=== PATIENT | female | born 1965 | race Caucasian/White ===

== ENCOUNTER → 2021-02-01 12:57 | Outpatient (BNVA) | payer OTHER, SELFPAY | PROVIDERS: PCP Internal Medicine; Visit Provider Internal Medicine | DX: G90.529 Complex regional pain syndrome I of unspecified lower limb (principal); M96.1 Postlaminectomy syndrome, not elsewhere classified; M79.671 Pain in right foot; M54.5 Low back pain; Z88.2 Allergy status to sulfonamides; Z88.8 Allergy status to other drugs, medicaments and biological substances; Z79.899 Other long term (current) drug therapy | CPT/HCPCS: 99202 ==

== ENCOUNTER 2021-08-20 13:34 | Outpatient (REF) | payer OTHER, SELFPAY ==
--- NOTE | ~2021-08-20 | MR_ITS ---
MRI OF THE BRAIN WITH AND WITHOUT IV CONTRAST INDICATION: Multiple sclerosis. COMPARISON: None available. TECHNIQUE: Multiplanar multisequence MR imaging of the brain was obtained without and following the administration of 7 mL of Gadavist without complication. FINDINGS: There is no pathologic intracranial enhancement. There are moderate scattered T2 signal changes throughout the supratentorial white matter and central nguyễn in a nonspecific distribution. There is no hydrocephalus, extra-axial surface collection, or herniation. The major flow voids at the skull base are preserved. There is no acute infarct on diffusion-weighted imaging. There is no intracranial hemorrhage on the gradient recalled echo acquisition. The cerebellar tonsils are normally positioned. The craniocervical junction is normal. Osseous marrow signal intensity is homogenous. The visualized soft tissues are unremarkable. MR/MR head/brain wo/w con IMPRESSION: There are moderate scattered T2 signal changes throughout the supratentorial white matter and central nguyễn in a nonspecific distribution. There are no enhancing lesions intracranially. If the prior study becomes available for comparison, an addendum will be made.
== END 2021-08-20 13:35 | disposition home or self-care (01) ==
LOC: HO.MRI 13:34
PROVIDERS: Visit Provider Psychiatry & Neurology Neurology
DX: G37.9 Demyelinating disease of central nervous system, unspecified (principal); G35 Multiple sclerosis
CPT/HCPCS: 70553; A9585

== ENCOUNTER → 2021-09-17 09:56 | Outpatient (BNVA) | payer OTHER, SELFPAY | PROVIDERS: PCP Internal Medicine; Visit Provider Internal Medicine | DX: G90.521 Complex regional pain syndrome I of right lower limb (principal) | CPT/HCPCS: Q3014 ==

== ENCOUNTER 2021-12-22 06:06 | Outpatient (REF) | payer OTHER, SELFPAY | END 2021-12-22 06:07 | disposition home or self-care (01) | LOC: HO.RADIR 06:06 | PROVIDERS: Visit Provider Internal Medicine | DX: G90.521 Complex regional pain syndrome I of right lower limb (principal) | CPT/HCPCS: 64450 ==

== ENCOUNTER → 2021-12-24 10:45 | Outpatient (BNVA) | payer OTHER, SELFPAY | PROVIDERS: PCP Internal Medicine; Visit Provider Internal Medicine | DX: G90.521 Complex regional pain syndrome I of right lower limb (principal); M96.1 Postlaminectomy syndrome, not elsewhere classified | CPT/HCPCS: 99212 ==

== ENCOUNTER 2022-11-23 16:59 | Outpatient (REF) | payer OTHER, SELFPAY ==
[2022-11-23 18:20] LABS: Alanine Aminotransferase 12 U/L (0-31); Albumin Level 4.5 g/dL (3.5-5.0); Alkaline Phosphatase 88 U/L (39-117); Anion Gap 13 (12-20); Aspartate Amino Transferase 15 U/L (5-31); Bilirubin Total 0.6 mg/dL (0.0-1.0); Blood Urea Nitrogen 17 mg/dL (9-16); Calcium 9.5 mg/dL (8.4-10.2); Carbon Dioxide 25 mmol/L (22-29); Chloride 100 mmol/L (96-108); Estimated Glomerular Filt Rate > 60; Glucose Random 132 mg/dL (60-115); Potassium 4.4 mmol/L (3.3-5.1); Rheumatoid Factor < 13.0 IU/mL (<15.0); Sodium 134 mmol/L (135-145); Total Protein 7.2 g/dL (6.5-8.0)
[2022-11-23 18:22] LABS: Erythrocyte Sedimentation Rate 7 MM/HR (0-20)
[2022-11-23 18:29] LABS: Thyroid Stimulating Hormone 0.85 uIU/mL (0.32-4.0)
[2022-11-30 01:24] LABS: Lyme Abs Screen <0.90 index
[2022-12-02 10:33] LABS: Anti Nuclear Antibody Screen NEGATIVE (NEGATIVE)
== END 2022-11-23 17:00 | disposition home or self-care (01) ==
LOC: HO.LAB 16:59
PROVIDERS: PCP Internal Medicine; Visit Provider Psychiatry & Neurology Neurology
DX: I67.9 Cerebrovascular disease, unspecified (principal)
CPT/HCPCS: 36415; 80053; 82550; 84443; 85652; 86038; 86431; 86617; 86618

== ENCOUNTER 2023-03-15 18:27 | Emergency (ER) | payer OTHER, SELFPAY ==
--- NOTE | ~2023-03-15 | XR_ITS ---
EXAMINATION: XR FOOT, RIGHT CLINICAL INFORMATION: Pain swelling discoloration COMPARISON: None available. TECHNIQUE: AP, lateral, and oblique views of the right foot. FINDINGS: Diffuse soft tissue swelling seen about the midfoot and forefoot. There is mild diffuse osteopenia. I do not appreciate any acute superimposed fracture or dislocation. No periosteal reaction or bony destructive lesions. No repair foreign body or soft tissue gas noted. XR/XR foot RT min 3V IMPRESSION: Diffuse soft tissue swelling. Chronic appearing bony changes. I do not appreciate any acute superimposed fracture or dislocation.
--- NOTE | ~2023-03-15 | US_ITS ---
EXAMINATION: US VENOUS ULTRASOUND WITH DOPPLER LOWER EXTREMITY, RIGHT CLINICAL INFORMATION: Increasing pain and swelling COMPARISON: None available. TECHNIQUE: Ultrasound of the deep veins is performed from the hip to the calf with compression sonography and color and pulse Doppler assessment. Spectral analysis with color-flow imaging is performed. FINDINGS: There is normal venous compression and respiratory variation and augmented flow. The visualized common femoral vein, superficial femoral vein, profunda femoral vein, popliteal vein, and the trifurcation region shows no evidence of deep venous thrombosis. There is no significant popliteal fossa cyst. Contralateral common femoral vein is patent. If the patient's symptoms persist, followup ultrasound in 5 days 7 days might be of value to exclude proximal propagation from a non-visualized calf vein. US/US venous duplex LE RT IMPRESSION: No DVT demonstrated in the right lower extremity.
--- NOTE | ~2023-03-15 | US_ITS ---
EXAMINATION: COLOR-FLOW DUPLEX IMAGING OF THE RIGHT LOWER EXTREMITY ARTERIAL SYSTEM WITH VELOCITY MEASUREMENTS CLINICAL INFORMATION: This is a 57 year-old female with right lower extremity pain, swelling and diminished pulses. RIGHT FEMORAL RUNOFF VELOCITIES: The right common femoral artery peak systolic velocity is 76 cm/s. The waveform is triphasic. The right profunda femoral artery peak systolic velocity is 51 cm/s. The waveform is triphasic. The right proximal superficial femoral artery peak systolic velocity is 64 cm/s. The waveform is triphasic. The right mid superficial femoral artery peak systolic velocity is 83 cm/s. The waveform is triphasic. The right distal superficial femoral artery peak systolic velocity is 92 cm/s. The waveform is triphasic. The right popliteal artery peak systolic velocity is 58 cm/s. The waveform is triphasic. The right posterior tibial artery peak systolic velocity is 56 cm/s. The waveform is triphasic. US/US arterial duplex LE RT IMPRESSION: No hemodynamically significant right lower extremity arterial disease is seen.
[2023-03-15 18:40] VITALS: BP 146/76; PULSE 61; RESP 16; TEMP 36.8; O2SAT 98; BMI 24.7
--- NOTE | 2023-03-15 18:44 | PC.NURSE ---
coming from home with right lower extremity swelling. denies diabetes or chf, reports taking oxycodone and lyrica at home as prescribed with no relief. unable to bear weight on foot is usually able to stand and pivot into wheelchair. call person within reach
--- NOTE | 2023-03-15 19:02 | ED_ITS ---
HPI - Extremity Injury (Lower) General Chief Complaint: Extremity Injury, Lower Stated Complaint: r swollen leg/ 02/09 pain Time Seen by Provider: 03/15/23 18:40 Source: patient Mode of arrival: ambulatory Limitations: no limitations History of Present Illness HPI Narrative: Patient is a 57-year-old female who presents emergency department for evaluation of right foot pain and swelling. Reports history of intermittent swelling to the right foot but not as severe as it is currently. She reports increasing pain over the past 2 weeks. Yesterday she noticed that the swelling to the foot became worse and she noticed discoloration/bruising to the 1st through 3rd digit without any trauma or injury. She describes her pain as a burning nerve type of pain. She states that she was seen at [facility] 03/01/2023 she states that it was believed to be related to an inflammatory condition for which she received prescription for prednisone 40 mg x 5 days which provided no improvement. Her pain has been unimproved with her chronic oxycodone/Lyrica Related Data Home Medications Medication Instructions Recorded Confirmed amlodipine 2.5 mg tablet 2.5 mg PO DAILY 02/01/21 09/17/21 cholecalciferol (vitamin D3) 25 1,000 unit PO DAILY 02/01/21 09/17/21 mcg (1,000 unit) tablet diazepam 5 mg tablet 5 mg PO DAILY PRN 02/01/21 09/17/21 docusate sodium 100 mg capsule 0 mg PO 02/01/21 09/17/21 duloxetine 60 mg capsule,delayed 60 mg PO DAILY 02/01/21 09/17/21 release lidocaine-prilocaine 2.5 %-2.5 % g topical BEDTIME 02/01/21 09/17/21 topical cream melatonin 3 mg tablet 3 mg PO QPM 02/01/21 09/17/21 ondansetron HCl 4 mg tablet 4 mg PO Q8H PRN nausea 02/01/21 09/17/21 oxycodone-acetaminophen 10 mg-325 1 tab PO BID PRN 02/01/21 09/17/21 mg tablet polyethylene glycol 3350 17 g PO 02/01/21 09/17/21 gram/dose oral powder (Gavilax) pregabalin 150 mg capsule 150 mg PO BID 02/01/21 09/17/21 zolpidem 12.5 mg tablet,extended 12.5 mg PO BEDTIME PRN insomnia 02/01/21 09/17/21 release,multiphase Allergies Allergy/AdvReac Type Severity Reaction Status Date / Time carisoprodol [From Soma] AdvReac Intermediate hives Verified 12/22/21 11:19 diflunisal AdvReac Intermediate hives Verified 12/22/21 11:19 omeprazole [From Prilosec] AdvReac Intermediate hives Verified 12/22/21 11:19 Sulfa (Sulfonamide AdvReac Intermediate hives Verified 12/22/21 11:19 Antibiotics) Review of Systems 2 Review of Systems: Yes all other systems are reviewed and are negative [facility] Past Medical History Attestation statement: The following information was validated with the patient. Source: old records reviewed Medical History CRPS (complex regional pain syndrome) type I of lower limb Post laminectomy syndrome Mitral regurgitation Chronic low back pain Anxiety Exotropia of left eye Chronic urticaria Insomnia Obesity Venous insufficiency Chronic pain in right foot Neuropathy Urinary incontinence Vitamin D deficiency Urinary retention Surgical History Spinal cord stimulator dysfunction H/O foot surgery Social History Social History (Updated 02/01/21 @ 13:09 by Chidi Mireles) Alcohol intake: never Patient Tobacco Use Status: Never used Tobacco Smoked in Last 30 Days: No Use of substances other than those prescribed or required for medical reasons: No Advance Directives: No Advance Directives Information Provided: Yes Physical Exam 2 Vital Signs: Vital Signs: Last Vital Signs Temp 98.3 F 03/15/23 19:32 Pulse 58 03/15/23 19:32 Resp 17 03/15/23 19:32 BP 127/78 03/15/23 19:32 Pulse Ox 97 03/15/23 19:32 O2 Del Method Room Air 03/15/23 19:32 BMI result Body Mass Index 24.7 Appearance: Alert.?Oriented to person, place and time. No acute distress.?Normal affect. Eyes: Pupils equal, round and reactive to light.? ENT: Pharynx normal.?? Neck: Normal inspection.? Neck supple.?? CVS: Heart sounds normal. Normal heart rate and rhythm.? Pulses normal.?? Respiratory: No respiratory distress.? Lung sounds clear to auscultation bilaterally?? Abdomen: Soft and non-tender. Normoactive bowel sounds. Skin: Skin warm and dry.? Normal skin color.? ? Extremities: 2+ pitting edema to the right foot. Doppler signal present on the right DP/PT. No calf ttp. No pallor or paralysis Neuro: Moves all extremities spontaneously. Sensation intact bilaterally. Course Reevaluation(s) Reevaluation #1: Arterial and venous ultrasound without acute abnormalities. CBC revealing a mild normocytic anemia not needing transfusion criteria, no leukocytosis. CRP within normal limits, ESR normal. Overall unremarkable CMP. Upon review of these findings with patient she becomes frustrated in her pain, expresses concern for potential fracture. Or initially she denied any precipitating injury, at this time she states, she may have twisted it or banged it into something. Plan to obtain XR to exclude fracture. Time: 20:17 Reevaluation #2: XR revealing no acute fracture dislocation, diffuse soft tissue swelling consistent with clinical examination. I reviewed these findings with patient. Patient did have some relief with morphine. I suspect her symptoms are likely an exacerbation of her chronic regional pain syndrome in addition to her chronic venous insufficiency. When asked she is no longer following with pain management, her primary care provider is the one who is currently managing her pain. I recommended considering follow-up for further treatment options. We discussed worrisome signs and symptoms that would warrant re-evaluation in the emergency department. All questions answered. Time: 21:01 Reevaluation #3: Medications Administered Discontinued Medications Generic Name Dose Route Start Last Admin Trade Name Nisha PRN Reason Stop Dose Admin Morphine Sulfate 4 mg 03/15/23 19:03 03/15/23 19:33 Morphine Sulfate 4 Mg/Ml Cartridge IVPUSH 03/15/23 19:04 4 mg ONCE ONE Administration Protocol Medical Decision Making Medical Decision Making MDM Narrative: Patient is a 57-year-old female with past medical history of complex regional pain syndrome involving the right lower extremity/foot, venous insufficiency, post laminectomy syndrome with chronic low back pain, neuropathy who presents emergency department for evaluation of right foot pain and swelling. She does have pain, unable to palpate pulses though there is Doppler signal present to DP/PT, chronic paresthesias, Less likely to be acute ischemic limb as there is no pallor, pokiilothermia, paralysis. Possible DVT. Plan to obtain venous/arterial ultrasound for further evaluation. Symptoms may however be exacerbation of her CRPS to the right lower limb in conjunction with chronic venous insufficiency. Less likely to be any acute fracture given her precipitating injury. Will trial morphine for pain. Differential Diagnosis Differential Diagnoses: The differential diagnosis associated with the presentation includes (As noted above) Lab Data 03/15/23 19:30 03/15/23 19:30 Labs: Lab Results 03/15/23 Range/Units 19:30 WBC 6.2 (4.8-10.8) X10*3/uL RBC 3.52 L (4.20-5.50) X10*6/uL Hgb 11.1 L (12.0-16.0) g/dl Hct 33.7 L (37.0-47.0) % MCV 95.7 (80.0-98.0) fL MCH 31.5 (27.0-33.0) pg MCHC 32.9 (31.0-35.0) g/dl RDW 12.6 (11.0-16.0) % Plt Count 190 (160-400) X10*3/uL MPV 11.1 (9.4-12.3) fL Immature Gran % (Auto) 0.2 (0.0-0.4) % Neut % (Auto) 43.3 L (45-73) % Lymph % (Auto) 47.4 H (20-40) % [place] % (Auto) 7.4 (2-11) % Eos % (Auto) 1.5 (0-4) % Baso % (Auto) 0.2 (0-2) % Lymph # (Auto) 2.9 (1.2-4.9) X10*3/uL [place] # (Auto) 0.5 (0.1-1.2) X10*3/uL Eos # (Auto) 0.1 (0.0-0.4) X10*3/uL Baso # (Auto) 0.0 (0.0-0.2) X10*3/uL Abs Immat Gran (auto) 0.01 (0.00-0.03) X10*3/uL Absolute Neuts (auto) 2.7 (2.0-8.3) x10*3/uL Absolute Nucleated RBC 0.000 (0.0-0.012) X10*3/uL Nucleated RBC % (auto) 0.0 (0.0-0.2) /100WBC ESR 10 (0-20) MM/HR PT 11.6 (11.1-13.3) SEC INR 1.0 (0.9-1.1) Sodium 139 (135-145) mmol/L Potassium 3.8 (3.3-5.1) mmol/L Chloride 107 (96-108) mmol/L Carbon Dioxide 27 (22-29) mmol/L Anion Gap 9 L (12-20) BUN 7 L (9-16) mg/dL Creatinine 0.65 (0.5-1.4) mg/dL Estim Creat Clear Calc 81.2 Estimated GFR > 60 Random Glucose 80 (60-115) mg/dL Calcium 8.8 D (8.4-10.2) mg/dL Total Bilirubin 0.3 (0.0-1.0) mg/dL AST 20 (5-31) U/L ALT 15 (0-31) U/L Alkaline Phosphatase 73 (39-117) U/L C-Reactive Protein < 0.10 (< or = 0.50) mg/dL Total Protein 6.0 L (6.5-8.0) g/dL Albumin 3.7 (3.5-5.0) g/dL Independent Interpretation I performed an independent interpretation of an: Plain X-Ray Radiology Impression Discussion of test interpretation with radiology: I have reviewed the radiologist's reading. Radiologist Impression: US/US arterial duplex LE RT IMPRESSION: No hemodynamically significant right lower extremity arterial disease is seen. US/US venous duplex LE RT IMPRESSION: No DVT demonstrated in the right lower extremity. XR/XR foot RT min 3V IMPRESSION: Diffuse soft tissue swelling. Chronic appearing bony changes. I do not appreciate any acute superimposed fracture or dislocation. Discharge Plan Discharge Clinical Impression: CRPS (complex regional pain syndrome) type I of lower limb, Pedal edema Patient Disposition: Home, Self-Care Instructions: Complex Regional Pain Syndrome (DC) Additional Instructions: Please continue taking your medications as prescribed. You will need to follow- up with your primary care provider for further pain management options. In addition, you should consider having evaluation again with the pain management clinic for further treatment options. As discussed, the x-ray of your foot in addition to the ultrasound imaging today did not show any new abnormal findings. This is reassuring. Prescriptions: No Action cholecalciferol (vitamin D3) 25 mcg (1,000 unit) tablet 1,000 unit PO DAILY pregabalin 150 mg capsule 150 mg PO BID zolpidem 12.5 mg tablet,ext release multiphase 12.5 mg PO BEDTIME PRN (Reason: insomnia) oxycodone-acetaminophen 10-325 mg tablet 1 tab PO BID PRN diazepam 5 mg tablet 5 mg PO DAILY PRN ondansetron HCl 4 mg tablet 4 mg PO Q8H PRN (Reason: nausea) duloxetine 60 mg capsule,delayed release(DR/EC) 60 mg PO DAILY melatonin 3 mg tablet 3 mg PO QPM docusate sodium 100 mg capsule 0 mg PO lidocaine-prilocaine 2.5-2.5 % cream topical BEDTIME polyethylene glycol 3350 [Gavilax] 17 gram/dose powder PO amlodipine 2.5 mg tablet 2.5 mg PO DAILY Referrals: Kel Gardner MD [Primary Care Provider] -
[2023-03-15 19:32] VITALS: BP 127/78; PULSE 58; RESP 17; TEMP 36.8; O2SAT 97
[2023-03-15] MEDS: Morphine Sulfate 4 MG/ML CARTRIDGE IVPUSH (19:33)
[2023-03-15 19:41] LABS: MANUAL DIFF FLAG NO
[2023-03-15 19:42] LABS: Basophils Percent Auto 0.2 % (0-2); Eosinophils Absolute Auto 0.1 X10*3/uL (0.0-0.4); Eosinophils Percent Auto 1.5 % (0-4); Hematocrit 33.7 % (37.0-47.0); Hemoglobin 11.1 g/dl (12.0-16.0); Imm Gran Abs Auto 0.01 X10*3/uL (0.00-0.03); Imm Gran Pct Auto 0.2 % (0.0-0.4); Lymphocytes Absolute Auto 2.9 X10*3/uL (1.2-4.9); Lymphocytes Percent Auto 47.4 % (20-40); Mean Corpuscular HGB Conc 32.9 g/dl (31.0-35.0); Mean Corpuscular Hemoglobin 31.5 pg (27.0-33.0); Mean Corpuscular Volume 95.7 fL (80.0-98.0); Mean Platelet Volume 11.1 fL (9.4-12.3); Monocytes Absolute Auto 0.5 X10*3/uL (0.1-1.2); Monocytes Percent Auto 7.4 % (2-11); Neutrophils Absolute Auto 2.7 x10*3/uL (2.0-8.3); Neutrophils Percent Auto 43.3 % (45-73); Platelet Count 190 X10*3/uL (160-400); Red Blood Count 3.52 X10*6/uL (4.20-5.50); Red Cell Distribution Width 12.6 % (11.0-16.0); White Blood Count 6.2 X10*3/uL (4.8-10.8)
[2023-03-15 19:49] LABS: Prothrombin Time 11.6 SEC (11.1-13.3)
[2023-03-15 19:53] LABS: C Reactive Protein < 0.10 mg/dL (< or = 0.50)
[2023-03-15 19:54] LABS: Alanine Aminotransferase 15 U/L (0-31); Albumin Level 3.7 g/dL (3.5-5.0); Alkaline Phosphatase 73 U/L (39-117); Anion Gap 9 (12-20); Aspartate Amino Transferase 20 U/L (5-31); Bilirubin Total 0.3 mg/dL (0.0-1.0); Blood Urea Nitrogen 7 mg/dL (9-16); Calcium 8.8 mg/dL (8.4-10.2); Carbon Dioxide 27 mmol/L (22-29); Chloride 107 mmol/L (96-108); Creatinine Clr Calc Pharmacy 81.2; Estimated Glomerular Filt Rate > 60; Glucose Random 80 mg/dL (60-115); Potassium 3.8 mmol/L (3.3-5.1); Sodium 139 mmol/L (135-145)
[2023-03-15 20:32] LABS: Erythrocyte Sedimentation Rate 10 MM/HR (0-20)
== END 2023-03-15 22:56 | disposition home or self-care (01) ==
PROVIDERS: Nurse Practitioner Family; Emergency Provider Student in an Organized Health Care Education/Training Program; PCP Internal Medicine
DX: G90.521 Complex regional pain syndrome I of right lower limb (principal); R60.0 Localized edema; M79.604 Pain in right leg; Z79.899 Other long term (current) drug therapy
CPT/HCPCS: 36415; 73630; 80053; 85025; 85610; 85652; 86140; 93926; 93971; 99284; J2270

== ENCOUNTER 2023-03-31 10:03 | Outpatient (AMB) | payer OTHER, SELFPAY ==
--- NOTE | 2023-03-31 10:05 | A.OFFVIS_ITS ---
Intake Vital Signs 03/31/23 10:07 Height 5 ft 2 in Weight 135 lb BMI 24.7 BP 112/67 Blood Pressure Location Lt brachial Position Sitting Respiration 14 Pulse 71 Pulse Source Pulse Oximeter Pulse Oximetry (%) 98 Oxygen Delivery Method Room Air Intake Visit Reasons: Increasing (R) Foot Pain Allergies carisoprodol [From Soma] Adverse Reaction (Intermediate, Verified 03/31/23 10:08) hives diflunisal Adverse Reaction (Intermediate, Verified 03/31/23 10:08) hives omeprazole [From Prilosec] Adverse Reaction (Intermediate, Verified 03/31/23 10:08) hives Sulfa (Sulfonamide Antibiotics) Adverse Reaction (Intermediate, Verified 03/31/23 10:08) hives Medication List - Last Reconciled 03/31/23 by Shu Molina LPN cholecalciferol (vitamin D3) 1,000 units PO DAILY diazepam 5 mg PO DAILY PRN docusate sodium 0 mg PO lidocaine-prilocaine 2.5-2.5 % grams topical BEDTIME melatonin 3 mg PO QPM ondansetron HCl 4 mg PO Q8H PRN oxycodone-acetaminophen 10-325 mg 1 tab PO BID PRN polyethylene glycol 3350 (Gavilax) grams PO pregabalin 150 mg PO BID zolpidem ER 12.5 mg PO BEDTIME PRN HPI Increasing (R) Foot Pain HPI Details 57-year-old female who presents today to the office for an evaluation of increasing right foot pain. The patient continues to have right foot pain as well as back pain. She was seen in the ER three times in the past two weeks for pain and swelling in her foot. She still has slight swelling in her foot, which affects her walking. She states that her neuropathy symptoms have been getting worse. She uses a wheelchair for ambulation most of the time. She was unable to wear her shoes due to swelling when she visited the ER. She is currently using compression stockings. She took oxycodone with minimal benefit. The patient continues to have [id number] back pain. She had a [employer] SCS with paddle leads placed for post-laminectomy pain, but this placement was complicated by the development of pain at the lead anchor sites in the middle of her back, due to which the device had to be taken out. She had about 50% relief for a short period of time but later developed pain at the paddle anchor site. She completed psychological evaluation for peripheral nerve stimulator last year. Past Procedures: 12/22/21: Right Diagnostic Posterior Tibi al Nerve Block ? No relief. ON LICENSE OF [facility] Medical History CRPS (complex regional pain syndrome) type I of lower limb Post laminectomy syndrome Mitral regurgitation Chronic low back pain Anxiety Exotropia of left eye Chronic urticaria Insomnia Obesity Venous insufficiency Chronic pain in right foot Neuropathy Urinary incontinence Vitamin D deficiency Urinary retention Surgical History Spinal cord stimulator dysfunction H/O foot surgery Social History (Updated 02/01/21 @ 13:09 by Chidi Mireles) Alcohol intake: never Patient Tobacco Use Status: Never used Tobacco Review of Systems Const All systems reviewed & are unremarkable except as noted in HPI and below Physical Exam Vital Signs: Last Vital Signs Pulse 71 03/31/23 10:07 Resp 14 03/31/23 10:07 BP 112/67 03/31/23 10:07 Pulse Ox 98 03/31/23 10:07 Oxygen Delivery Method Room Air 03/31/23 10:07 BMI result Body Mass Index 24.7 General: Appears afebrile. Alert and oriented. Mood and affect appropriate. Follows and participates in conversation appropriately. Respiratory effort is unlabored. Able to transition from sit to stand unassisted. Ambulates with bilaterally normal heel strike and toe off. Pictures reviewed from foot pain exacerbation episodes showing swelling on the toes associated with blue black discoloration. Results Reviewed Results Reviewed: No imaging is available for review. Assessment & Plan Assessment & Plan (1) CRPS (complex regional pain syndrome) type I of lower limb: Code(s): G90.529 - Complex regional pain syndrome I of unspecified lower limb Qualifiers: Laterality: right Qualified Code(s): G90.521 - Complex regional pain syndrome I of right lower limb (2) Post laminectomy syndrome: Code(s): M96.1 - Postlaminectomy syndrome, not elsewhere classified Plan Discussed Spinal cord stimulation with high-frequency device vs. pain pump as a possible treatment options for failed back and chronic regional pain syndrome of the right foot. patient feels of the right foot is more bothersome and would like the option that is more likely to help with CRPS symptoms, which would be an SCS system. We will check if she will need a repeat psychological evaluation and clearance. We will proceed with the trial of lumbar spinal cord stimulator trial, with a lead each for failed back and chronic regional pain syndrome. Discussed the risks and benefits of the procedure with the patient in detail. All questions were answered. The patient is on board with the plan. Justification for interventional therapy: ? Patient with average pain > 6/10 ? Patient has exhausted conservative therapy and continues to require emergency room visits for exacerbation of pain episodes Scribed for Dr. Juarez by Hugo Magallon, medical records supervisor, on 03/31/2023. I, Dr. Juarez, have personally reviewed and agree with the information entered by the scribe. Coding Level of Care Code Est Pt Level 4 (34065) Diagnoses Complex regional pain syndrome type 1 of right lower extremity G90.521 Laterality: right Post laminectomy syndrome M96.1
[2023-03-31 10:07] VITALS: BP 112/67; PULSE 71; RESP 14; O2SAT 98; BMI 24.7
== END 2023-03-31 10:43 | disposition home or self-care (01) ==
PROVIDERS: PCP Internal Medicine; Visit Provider Internal Medicine
DX: G90.521 Complex regional pain syndrome I of right lower limb (principal); M96.1 Postlaminectomy syndrome, not elsewhere classified
CPT/HCPCS: 99214

== ENCOUNTER → 2023-03-31 10:03 | Outpatient (BNVA) | payer OTHER, SELFPAY | PROVIDERS: PCP Internal Medicine; Visit Provider Internal Medicine | DX: G90.521 Complex regional pain syndrome I of right lower limb (principal); M96.1 Postlaminectomy syndrome, not elsewhere classified | CPT/HCPCS: 99212 ==

== ENCOUNTER 2024-09-05 16:17 | Outpatient (REF) | payer OTHER, SELFPAY ==
[2024-09-05 16:37] LABS: MANUAL DIFF FLAG NO
[2024-09-05 16:46] LABS: Basophils Percent Auto 0.4 % (0-2); Eosinophils Absolute Auto 0.1 X10*3/uL (0.0-0.4); Eosinophils Percent Auto 0.7 % (0-4); Hematocrit 36.9 % (37.0-47.0); Hemoglobin 12.7 g/dl (12.0-16.0); Imm Gran Abs Auto 0.02 X10*3/uL (0.00-0.03); Imm Gran Pct Auto 0.3 % (0.0-0.4); Lymphocytes Absolute Auto 3.2 X10*3/uL (1.2-4.9); Lymphocytes Percent Auto 47.1 % (20-40); Mean Corpuscular HGB Conc 34.4 g/dl (31.0-35.0); Mean Corpuscular Hemoglobin 31.6 pg (27.0-33.0); Mean Corpuscular Volume 91.8 fL (80.0-98.0); Monocytes Absolute Auto 0.5 X10*3/uL (0.1-1.2); Monocytes Percent Auto 7.1 % (2-11); Neutrophils Percent Auto 44.4 % (45-73); Platelet Count 270 X10*3/uL (160-400); Red Blood Count 4.02 X10*6/uL (4.20-5.50); Red Cell Distribution Width 12.1 % (11.0-16.0); White Blood Count 6.7 X10*3/uL (4.8-10.8)
[2024-09-05 17:40] LABS: Anion Gap 12 (12-20); Blood Urea Nitrogen 10 mg/dL (9-16); Carbon Dioxide 25 mmol/L (22-29); Chloride 104 mmol/L (96-108); Estimated Glomerular Filt Rate > 60; Glucose Random 93 mg/dL (60-115); Potassium 4.4 mmol/L (3.3-5.1); Sodium 137 mmol/L (135-145)
[2024-09-05 18:07] LABS: Folate 11.9 ng/mL (> or = 4.0); Vitamin B12 279 pg/mL (200-900)
--- OUTSIDE RECORDS SUMMARY | 2024-09-05 19:24 | XMS_ITS | Continuity of Care Document ---
Author Organization [facility] Address [address] [place] [address]- Care Team Providers Care Pie Maker Name Role Phone Kendra CAREY, Kel Primary Care Physician Encounter [facility] [place] Date(s): 07/08/24 - 08/07/24 [facility] [address] [place], [place] [address] Encounter Type: Triage Allergies, Adverse Reactions, Alerts Substance Criticality Severity Reaction Reaction Severity Status Prilosec hives Active diflunisal hives Active sulfa drugs hives Active Soma total body rash & hives Active Lasix Active Naprosyn hives Active Levaquin Active Immunizations Given and Recorded Vaccine Date Status Refusal Reason tetanus/diphtheria/pertussis, acel(Tdap) 03/02/11 Recorded tetanus/diphtheria/pertussis, acel(Tdap) 09/20/09 Given tetanus-diphtheria toxoids (Td) 02/14/02 Recorded Medications acetaminophen-oxyCODONE 325 mg-5 mg oral tablet 1, tablet, By Mouth, Every 6 hours, PRN, TAKE 1 TABLET BY MOUTH EVERY 6 HOURS NEEDED FOR MODERATE PAIN. Dx M79.671, # 112 tablet, Refills 0, Tot. Refills 0, Maintenance, Pain , Moderate, 07/30/24 8:32:00 PM EST, Route to Pharmacy Electronically, [facility]/pharmacy #[id number] Tablet, Partial fill upon patient request if the prescription is for a schedule II opioid drug., 160, cm, 04/10/24 14:58:00 EDT, Height Start Date: 07/30/24 Status: Ordered Quantity: 112.0 Unit: tablet Repeat number: 1 D3 1000 intl units (25 mcg) oral tablet 2 tablet = 50 mcg, By Mouth, Daily, # 180 tablet, 1 Refills, Maintenance, 02/20/23 8:49:00 AM EDT, [facility]/pharmacy #[id number], Partial fill upon patient request if the prescription is for a schedule II opioiddrug., 160, cm, 11/30/22 14:14:00 EDT, Height, 66, kg, 04/10/22 15:51:00 EDT, Dry Weight Start Date: 02/20/23 Status: Ordered Quantity: 180.0 Unit: tablet Repeat number: 2 diazepam 5 mg oral tablet TAKE 1 TABLET BY MOUTH THREE TIMES A WEEK NEEDED FOR PANIC Start Date: 06/10/22 Status: Ordered Repeat number: 1 docusate sodium 100 mg oral capsule See Instructions, TAKE 1 CAPSULE BY MOUTH 3 TIMES DAILY NEEDED FOR CONSTIPATION., # 100 capsule,5 Refills, Maintenance, 01/13/24 12:43:00 PM EDT, [id number], 160, cm, 01/03/24 10:27:00 EDT, Height, 66, kg, 04/10/22 15:51:00 EDT, Dry Weight Start Date: 01/13/24 Status: Ordered Quantity: 100.0 Unit: capsule Repeat number: 6 Golytely - oral powder for reconstitution 240 mL, By Mouth, Every 10 minutes, # 1 each, 0 Refills, Maintenance, 09/20/23 2:54:00 PM EDT, REC Powder, [id number], Partial fill upon patient request if the prescription is for a schedule II opioid drug., 240 mL By Mouth Every 10 minutes, 160, cm, 09/20/23 14:28:00 EDT, Height, 66, kg, 04/10/22 15:51:00 EDT, Dry Weight Start Date: 09/20/23 Status: Ordered Quantity: 1.0 Unit: each Repeat number: 1 lidocaine-prilocaine 2.5%-2.5% topical cream See Instructions, Apply small amount to feet nightly as needed for pain, # 30 Gm, 0 Refills, Soft Stop, 06/30/22 11:31:00 AM EST, [id number], Partial fill upon patient request if the prescription is for a schedule II opioid drug., Apply small amount to feet nightly as needed for pain, 160, cm, 04/12/22 14:26:00 EDT, Height, 66, kg, 04/10/22 15:51:00 EDT, Dry Weight Start Date: 06/30/22 Status: Ordered Quantity: 30.0 Unit: g Repeat number: 1 Lyrica 75 mg oral capsule 1 capsule = 75 mg, By Mouth, 2 times a day, # 180 capsule, 1 Refills, Maintenance, 06/19/24 8:50:00PM EST, Capsule, [facility]/pharmacy #[id number], Partial fill upon patient request if the prescription is for aschedule II opioid drug., 160, cm, 04/10/24 14:58:00 EDT, Height Start Date: 06/19/24 Status: Ordered Quantity: 180.0 Unit: capsule Repeat number: 2 Melatonin 10 mg oral tablet, disintegrating TAKE 1 TABLET BY MOUTH EVERY DAY AT BEDTIME NEEDED FOR INSOMNIA Start Date: 03/29/22 Status: Ordered Repeat number: 1 zolpidem 12.5 mg oral tablet, extended release TAKE 1 TABLET BY MOUTH EVERY DAY AT BEDTIME NEEDED Start Date: 06/10/22 Status: Ordered Repeat number: 1 Problem List Condition Confirmation Course Effective Dates Status H ealth Status Informant Anxiety Confirmed Active Chronic low back pain Confirmed Active CRPS (complex regional pain syndrome), lower limb; [facility] Confirmed Active Constipation Confirmed Active Controlled substance agreement signed Confirmed Active Exotropia of left eye Confirmed Active Chronic pain in right foot Confirmed Active Pain in left foot Confirmed Active Insomnia; [facility] seen [facility] Confirmed Active Mitral regurgitation Confirmed Active Cervicalgia; PSSP Confirmed Active Neuropathy Confirmed Active Venous insufficiency Confirmed Active Major depressive disorder, severe; psychiatry prescribing Confirmed Active Fatty liver Confirmed Active Tinnitus Confirmed Active Urinary incontinence; [facility] Confirmed Active Social History Social History Type Response Smoking Status Never smoker entered on: 05/09/14 Sex Sex Representation Female (finding) Patient Care team information Care Team Personnel Name: Xiomy Harrell RN Position: [facility] ED RN W/OE and Tasks Member Role: Primary Care Nurse Name: Karl Pierson RN Position: [facility] RN Member Role: Primary Care Nurse Name: Quita Mane Position: [facility] Outreach Member Role: Lifetime Consulting Physician Name: Kel Gardner MD Position: [facility] Physician - Primary Care Member Role: PCP Address: [address] [place] [address] Telecom: Name: Long Donahue RN Position: [facility] RN Member Role: Primary Care Nurse Name: Ephraim Cortés RN Position: [facility] Hospital Script Manager Member Role: Primary Care Nurse Name: Shannan Bradford RN Position: [facility] RN Member Role: Primary Care Nurse Name: Jacey May [place] Position: [facility] VERENA [place] Member Role: Lifetime Consulting Physician Name: Selma Cates RN Position: [facility] RN Member Role: Primary Care Nurse Name: Nichole Tomlin RN Position: [facility] RN Member Role: Primary Care Nurse Care Team Related Persons Name: LENIN FARIA Name: ARNOLDO LINDO Name: SANTINO LINDO Insurance Providers Guarantor name: [facility] Health Plan Information #: 1 Payer: [facility] Member Number: NA Policy Number: NA Group Number: NA
--- OUTSIDE RECORDS SUMMARY | 2024-09-05 19:24 | XMS_ITS | Data Portability ---
Author Organization [facility] Address [address] [place] [id number] Care Team Providers Care Bread Oven Operator Name Role Phone CARLOS FRANCES Referring Provider [phone] Assessment Encounter Date Assessment Date Assessment LastModified by Organization Details LastModified Time 03/14/2023 03/14/2023 I provided real -time medical direction via phone for this encounter, and was available for additional phone based assistance as needed. I have reviewed and agree with the Assessment and Plan as documented by the Office Machine Punch Operator. Patient given the opportunity to ask questions. 57 yo wheelchair bound p/w right foot swelling x3 weeks and atraumatic blue discoloration and bruising . No changes in sensation, no change in pain (takes baseline percocet), or change in perfusion. Of note pt presented to ED yesterday but left 2/2 long wait time. 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 Discussed risk with pt, who declined to present to ED, and agreed she would reach out to PCP to discuss ultrasound or other imaging. In interim can take additional 500mg acetaminophen when she takes baseline percocet. Reviewed warning signs/sx. [email or web address] Not available 04/09/2023 23:03:03 Plan of Treatment Reminders Order Date Submit Date Provider Last Modified By Organization Details Last Modified Time Details Appointments None record ed. Lab None record ed. Referral None record ed. Procedures None record ed. Surgeries None record ed. Imaging None record ed. Medication Orders None record ed. Patient TargetsNo targets recorded. Patient InstructionsNo instructions recorded. Reason for Referral None Reported. Medical Equipment None Reported. Medications Name Sig Start Date Stop Date Status Note LastModified by Organization Details LastModified Time amoxicillin 500 mg capsule TAKE 1 CAPSULE BY MOUTH TWICE A DAY active Not Available Not Available No t Available ondansetron HCl 4 mg tablet TAKE 1 TABLET BY MOUTH EVERY 8 HOURS NEEDED FOR NAUSEA active Not Available Not Available No t Available prednisone 20 mg tablet TAKE 2 TABLET (ORAL) DAILY FOR 5 DAYS TAKE EARLY IN THE DAY WITH FOOD. active Not Available Not Available N ot Available lidocaine-pr ilocaine 2.5 %-2.5 % topical cream APPLY SMALL AMOUNT TO FEET NIGHTLY NEEDED FOR PAIN active Not Available Not Available No t Available oxycodone-ac etaminophen 5 mg-325 mg tablet TAKE 1 TABLET BY MOUTH EVERY 6 HOURS NEEDED FOR MODERATE PAIN active Not Available Not Available No t Available famotidine 20 mg tablet active Not Available Not Available Not Available cephalexin 500 mg capsule TAKE 1 CAPSULE BY MOUTH 3 TIMES A DAY FOR 5 DAYS active Not Available Not Available N ot Available nitrofuranto in macrocrystal 100 mg capsule TAKE 1 CAP BY MOUTH FOUR TIMES DAILY X 5 DAYS active Not Available Not Available No t Available docusate sodium 100 mg capsule TAKE 1 CAPSULE BY MOUTH 3 TIMES DAILY NEEDED FOR CONSTIPATIO N. active Not Available Not Available No t Available gabapentin 100 mg capsule TAKE 1 CAPSULE BY MOUTH 3 TIMES A DAY active Not Available Not Available Not Available diazepam 5 mg tablet TAKE 1 TABLET BY MOUTH THREE TIMES A WEEK NEEDED FOR PANIC active Not Available Not Available No t Available oxycodone 5 mg tablet active Not Available Not Available No t Available Vitamin D3 25 mcg (1,000 unit) tablet TAKE 2 TABLETS BY MOUTH EVERY DAY active Not Available Not Available No t Available duloxetine 20 mg capsule,get yed release TAKE 1 CAPSULE BY MOUTH EVERY DAY active Not Available Not Available No t Available duloxetine 60 mg capsule,get yed release TAKE 1 CAPSULE BY MOUTH EVERY DAY active Not Available Not Available No t Available pregabalin 25 mg capsule TAKE 1 CAPSULE BY MOUTH TWICE A DAY active Not Available Not Available No t Available pregabalin 225 mg capsule TAKE 1 CAPSULE BY MOUTH TWICE A DAY FOR 30 DAYS active Not Available Not Available No t Available zolpidem ER 6.25 mg tablet,exten ded release,mult iphase TAKE 1 TABLET BY MOUTH EVERY DAY AT BEDTIME NEEDED active Not Available Not Available No t Available zolpidem ER 12.5 mg tablet,exten ded release,mult iphase TAKE 1 TABLET BY MOUTH EVERY DAY AT BEDTIME NEEDED active Not Available Not Available No t Available sodium fluoride 1.1 % dental paste BRUSH TWICE A DAY active Not Available Not Available No t Available Gavilax 17 gram/dose oral powder TAKE 17-34 GM BY MOUTH DAILY NEEDED FOR CONSTIPATIO N DISSOLVE IN WATER BEFORE TAKING active Not Available Not Available No t Available melatonin ER 10 mg tablet,exten ded release TAKE 1 TABLET BY MOUTH EVERY DAY AT BEDTIME NEEDED FOR INSOMNIA active Not Available Not Available No t Available melatonin 10 mg sublingual tablet DISSOLVE 1 TABLET BY MOUTH EVERY DAY AT BEDTIME NEEDED FOR INSOMNIA active Not Available Not Available No t Available Vitals Date Recorded Respiratory rate Oxygen saturation Oxygen saturation in Arterial blood by Pulse oximetry Heart rate Body temperature Systolic blood pressure Diastolic blood pressure Provider Name and Address Organization Details Last Updated DateTime 3 20 /min 98 % 98 % 76 /min 96.6 [degF] 115 mm[Hg] 74 mm[Hg] Not Available [facility] - production 3 17:29:07 Social History None recorded. Functional Status None recorded. Mental Status None recorded. Family History Nothing Reported. Medical History No medical history recorded. Gynecological HistoryNo gynecological history recorded. Obstetrics History GPAL:G 0 P 0 0 0 0 Past Encounters Encounter ID Performer Location Encounter Start Date Encounter Closed Date Diagnosis/Indication Diagnosis SNOMED-CT Code Diagnosis ICD10 Code Diagnosis Note [id number] Lornea Chairez MD [facility] - [facility] [address] [place] [phone] 03/14/2023 17:28:59 03/15/2023 11:53:15 Health Concerns Section Related Observation LastModified by Organization Detai ls LastModified Time None Recorded Concern Status LastModified by Organization Details LastModified Time None Recorded Advance Directives Directive None Recorded Payers Encounter Date Sequence Insurance Name Policy Number Policy Ibrahim Covered Member ID Ibrahim Member ID Guarantor Name 03/14/2023 1 [facility] - DOS ON OR AFTER 2022 - DUAL ELIGIBLE - LONG TERM OPTIONS AND ONE CARE (MEDICARE REPLACEMENT/AD VANTAGE - HMO) Ellen Pompa [id number] Ellen Pompa Notes Date Note Type Note Provider Name and Address Organization Details Recorded Time 03/14/2023 text/html HPI: Member reports that her feet are swollen, black and blue and burning. She is in great pain. She went to the ED but was unable to wait there any longer. The etiology is not clear, but the member feels that it is nerve related. She can't think of what may have helped in the past. This is a recurring issue, but is now a significant flare up of same. ................... ................... ................... ................... ................... ................... ................... ........ [facility] Nursing Assessment: Comments: Reviewed - James ENCISO ................... ................... ................... ................... ................... ................... ................... ........ Office Machine Punch Operator Note From Markus Ramos: [facility] dispatched to location for PT with swollen foot. U/A to location PT 57 y.o. 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 PT presents awake CAOx4 with pink/warm/dry skin speaking full sentences. PT states she is experiencing swelling to her right foot X approx 3 weeks. Along with noticing some black and blue bruising to some of the toes starting last night. PT denies SOB and presents with clear LS bi lat. PT denies any trauma to either foot. PT has no other complaints. PT states she went to ER for the issue but the wait was too long. [facility] contacted with verbal report on PT present illness. [facility] instructs PT to take an additional 500mg acetaminophen tablet when taking the PT prescribed oxy/acet medication. (PT has allergy to naproxen). PT is instructed to rest foot and contact PCP first thing tomorrow morning. PT is advised to see ER attention if symptoms worsen or other symptoms arise. [facility] clears scene *All times are approximate and red flags discussed* ................... ................... ................... ................... ................... ................... ................... ........ Disposition: Fulfilled Lorena Chairez MD [address] [facility], [place], [phone], [facility] 04/09/2023 23:03:06 OBGyn Episode No OBEpisode recorded.
--- OUTSIDE RECORDS SUMMARY | 2024-09-05 19:24 | XMS_ITS | Continuity of Care Document ---
Author Organization [facility] Address [address] [place] [address]- Care Team Providers Care Insurance Follow Up Specialist Name Role Phone Kendra CAREY, Kel Primary Care Physician Encounter [facility] Date(s): 07/30/24 - 08/29/24 [facility] [address] [place], [place] [address] Encounter Type: Triage Allergies, Adverse Reactions, Alerts Substance Criticality Severity Reaction Reaction Severity Status diflunisal hives Active Prilosec hives Active sulfa drugs hives Active Soma total body rash & hives Active Lasix Active Naprosyn hives Active Levaquin Active Immunizations Given and Recorded Vaccine Date Status Refusal Reason tetanus/diphtheria/pertussis, acel(Tdap) 03/02/11 Recorded tetanus/diphtheria/pertussis, acel(Tdap) 09/20/09 Given tetanus-diphtheria toxoids (Td) 02/14/02 Recorded Problem List Condition Confirmation Course Effective Dates Status H ealth Status Informant Anxiety Confirmed Active Chronic low back pain Confirmed Active CRPS (complex regional pain syndrome), lower limb; [facility] Confirmed Active Constipation Confirmed Active [...] Confirmed Active Urinary incontinence; [facility] Confirmed Active Social History Social History Type Response Smoking Status Never smoker entered on: 05/09/14 Sex Sex Representation Female (finding) Patient Care team information Care Team Personnel Name: Xiomy Harrell RN Position: [facility] ED RN W/OE and Tasks Member Role: Primary Care Nurse Name: Karl Pierson RN Position: [facility] RN Member Role: Primary Care Nurse Name: Quita Mane Position: [facility] Outreach Member Role: Lifetime Consulting Physician Name: Kel Gardner MD Position: [facility] Physician - Primary Care Member Role: PCP Address: [address] [place] [address] Telecom: Name: Long Donahue RN Position: [facility] RN Member Role: Primary Care Nurse Name: Ephraim Cortés RN Position: [facility] Wet Roaster Member Role: Primary Care Nurse Name: Shannan Bradford RN Position: [facility] RN Member Role: Primary Care Nurse Name: Jacey May [place] Position: [facility] MA Member Role: Lifetime Consulting Physician Name: Selma Cates RN Position: [facility] RN Member Role: Primary Care Nurse Name: Nichole Tomlin RN Position: [facility] RN Member Role: Primary Care Nurse Care Team Related Persons Name: LENIN FARIA Name: ARNOLDO LINDO Name: SANTINO LINDO Insurance Providers Guarantor name: [facility] Health Plan Information #: 1 Payer: [facility] Member Number: NA Policy Number: NA Group Number: NA
--- OUTSIDE RECORDS SUMMARY | 2024-09-05 19:24 | XMS_ITS | Patient Health Record ---
Author Organization [facility] Address [address] [place] [address] Care Team Providers Care Pipe Joints Supervisor Name Role Phone Kel Gardner MD Primary Care Provider Unavail able Black, Carole Unavailable [phone] Allergies Allergen (clinical drug ingredient) Drug/Non Drug Allergy documented on EMR Reaction Allergy Type Onset Date Status omeprazole PriLOSEC hives Drug Allergy Active carisoprodol Soma hives Drug Allergy Acti ve diflunisal Diflunisal hives Drug Allergy Activ e naproxen Naproxen hives Drug Allergy Active Substance with sulfonamide structure and antibacterial mechanism of action (substance) Sulfa Antibiotics hives Drug Allergy Active Reason For Referral No Information Medications Medication SIG (Take, Route, Fr equency, Duration) Notes Start Date End Date Status diazePAM 5 MG 1 tablet as needed O rally Once a day Active Melatonin ER 10 MG as directed Orally Active Vitamin D3 Active Cymbalta 60 MG 1 capsule Orally Onc e a day for 30 day(s) Active oxyCODONE HCl Active MiraLax Active Pregabalin 150 MG 1 capsule Orally Twice a day Active amLODIPine Besylate Active Lidocaine-Prilocaine Active Docusate Sodium Acti ve Ambien CR 12.5 MG 1 tablet at bedtime as needed Orally Once a day Active Zofran Active Social History Tobacco Use: Social History Observation Description Date Details (start date - stop date) Never Smoker NA - NA Tobacco Use/Smoking Question Answer Notes Are you a: nonsmoker Alcohol Screen Question Answer Notes Did you have a drink containing alcohol in the p ast year? No Points 0 Interpretation Negative Tobacco use other than smoking: Question Answer Notes Are you an other tobacco user? No Problems Problem Type SNOMED Code ICD Code Onset Dates Problem Status W/U Status Risk Notes Problem Acquired hammer toe of right foot (6416530993893031) Other hammer toe(s) (acquired), right foot (M20.41) Active confirmed Problem Acquired hallux valgus (27281368) Hallux valgus (acquired), left foot (M20.12) Active confirmed Problem Acquired hammer toe of left foot (6716610814242602) Other hammer toe(s) (acquired), left foot (M20.42) Active confirmed Problem [id number] Complex regional pain syndrome type 1 of right lower extremity (G90.521) Active confirmed Plan Of Treatment No Information Insurance Providers Payer Name Payer Address Payer Phone Subscriber Number Group Number Insured Name Patient Relationship to Insured Coverage Start Date Coverage End Date [facility] [employer] Claims [address] [place] Baez [id number] Ellen Pompa Self - patient is the insured Medical (General) History Medical History History ICD Code Anxiety Arthritis Back,Hip,and Knee pain Depression Gallstones Headaches/Migraines Multiple sclerosis Poor circulation Sciatica Joint implants/screws Venous insufficiency nerve disorder bladder issues misalignment of eyes leaky mitral heart valve Surgical History Surgery Date(Month/Year) back surgery 2004, 04/17, 05/18 foot surgery 2013, 2015, 2017
--- OUTSIDE RECORDS SUMMARY | 2024-09-05 19:24 | XMS_ITS | Clinical Summary ---
Author Organization 175 [facility] Address [address] [place] [address] Phone Care Team Providers Care Court Assistant Name Role Phone Carlos Frances MD Primary Care Provider [phone] Allergies Active Allergy Reactions Criticality Noted Date Comments Carisoprodol Hives 03/06/2006 Other reaction(s): Hives Diflunisal Hives 01/19/2017 Heart racing. Naproxen 03/06/2006 itching Other reaction(s): Hives Omeprazole Hives 03/06/2006 Other reaction(s): Hives Sulfa (Sulfonamide Antibiotics) 06/05/2019 Other reaction(s): Hives Medications TENS units device 1 each by Not Applicable route 1 (one) time each day. Galvanic Nerve Stimulator 1 Active amLODIPine (NORVASC) 2.5 mg tablet Take 1 tablet (2.5 mg total) by mouth 1 (one) time each day. 2 Active bisacodyL (Dulcolax, bisacodyl,) 5 mg EC tablet Take 2 tabs by mouth right before beginning bowel prep. Follow instructions given by office for timing. 2 Active cholecalcifero l (VITAMIN D-3) 25 mcg (1,000 unit) tablet Take 2 tablets (2,000 Units total) by mouth 1 (one) time each day. 2 Active diazePAM (VALIUM) 5 mg tablet Take 1 tablet (5 mg total) by mouth 2 (two) times a day. Active docusate sodium (COLACE) 100 mg capsule Take 1 capsule (100 mg total) by mouth 3 (three) times a day if needed for constipation. 2 Active DULoxetine (CYMBALTA) [address] capsule Take 1 capsule (60 mg total) by mouth 1 (one) time each day. 8 Active lidocaine-pril ocaine (EMLA) 2.5-2.5 % cream Apply to feet at night 1 Active melatonin 3 mg tablet Take 10 mg by mouth 1 (one) time each day. Active ondansetron (ZOFRAN) 4 mg tablet Take 1 tablet (4 mg total) by mouth every 8 (eight) hours if needed for nausea. 2 Active polyethylene glycol (MIRALAX) 17 gram packet Take 17 g by mouth. EVERY 48 HOURS NEEDED FOR CONSTIPATION. MAY REPEAT DOSE NEEDED 1 Active predniSONE (DELTASONE) 20 mg tablet 3 pills po for 3 days 2 pills po for 3 days 1 pill po for 3 days 1 Active pregabalin (LYRICA) 150 mg capsule Take 1 capsule (150 mg total) by mouth 2 (two) times a day. 2 Active zolpidem CR (AMBIEN CR) 12.5 mg CR tablet Take 1 tablet (12.5 mg total) by mouth at bedtime as needed. Active ascorbic acid (VITAMIN C) 500 mg tablet Take 1 tablet (500 mg total) by mouth 2 (two) times a day. 60 each 2 4 08/13/19 25 lidocaine (LIDODERM) 5 % patch Apply 1 patch topically 1 (one) time each day. Remove & discard patch within 12 hours or as directed by . 30 each 2 4 08/13/19 25 Active Problems Problem Noted Date Diagnosed Date Snoring 10/29/2021 Overview (05/08/2024): 10/2021 Home Sleep Study did not reveal sleep apnea or nocturnal hypoxia. Urinary retention 07/20/2019 Overview (05/08/2024): [facility]; has required self-catheterization in the past Vitamin D deficiency 12/13/2018 Urinary incontinence 03/31/2018 Complex regional pain syndrome of lower extremit y 02/28/2018 Overview (05/08/2024): [facility] ASCUS with positive high risk HPV cervical 07/20 Overview (05/08/2024): Colpo 07/20/2016 Neuropathy 12/28/2015 Overview (05/08/2024): Dr Ascencio Venous insufficiency 12/20/2015 Chronic pain in right foot 10/28/2015 Overview (05/08/2024): Dr Molina Chronic urticaria 10/28/2015 Insomnia 10/28/2015 Obesity 10/28/2015 Exotropia of left eye 04/20/2010 Anxiety 01/08/2010 Overview (05/08/2024): [facility] Chronic low back pain 03/06/2006 Overview (05/08/2024): lumbar fusion 08/06, annular tear L4 L5. New left L4 nerve root compression 05/15 Mitral regurgitation 03/06/2006 Overview (05/08/2024): Echo 2012: mild to mod MR. Still mild to mod on echo 05/19. 10/22: mild Encounters Date Type Department Care Team Description 08/16/2024 Lab Requisition [facility] - Main Lab [address] [facility] [employer] [address] Demetria Velasco MD Other abnormal findings in urine 06/18/2024 1:30 PM EST Office Visit Orthopedic [facility] [address] [address] Zenon Nolan DPM Neuritis (Primary Dx); Right foot pain 06/10/2024 Telephone Orthopedic [facility] [address] [address] Zenon Nolan DPM from Last 3 Months Immunizations Name Administration Dates Next Due Td, Unspecified 02/14/2002 Tdap Tetanus diptheria acell ular pertussis (Boostrix; Adacel) 7yo and older 03/02/2011 Surgical History Surgery Date Site/Laterality Comments LUMBAR LAMINECTOMY 08/06 PROCEDURE: HISTORICAL LUMB LAMINECTOMY; COMMENT: fusion L4L5 BUNIONECTOMY PROCEDURE: AL CORRJ HLX VLGS BNCTY SESMDC W/DOUBLE OSTEOTOMY FOOT SURGERY PROCEDURE: HISTORICAL FOOT SURGERY; COMMENT: tarsometatarsal fusion with gastrocnemius recession EYE SURGERY mid PROCEDURE: HISTORICAL EYE SURGERY; COMMENT: strabismus surgery OTHER SURGICAL HISTORY Right PROCEDURE: ---- OTHER ----; COMMENT: ELVT R leg vein OTHER SURGICAL HISTORY PROCEDURE: AL RADIAL KERATOTOMY BACK SURGERY 05/02/16 PROCEDURE: HISTORICAL BACK SURGERY BACK SURGERY 05/06/16 PROCEDURE: HISTORICAL BACK SURGERY; COMMENT: for retained disc fragments FOOT SURGERY Right PROCEDURE: HISTORICAL FOOT SURGERY OTHER SURGICAL HISTORY 04/02/2018, 02/06/19 PROCEDURE: ---- OTHER ----; COMMENT: nerve stimulator placement, then removal Medical History Medical History Date Comments Lumbago 03/06/2006 DX:Lumbago; COMM ENT: lumbar fusion 08/06, annular tear L4 L5 Mitral valve disorders(424.0) 03/06/2006 DX :Mitral valve disorders(424.0); COMMENT: echo 12/03 mild MR antibiotic prophylaxis Mechanical strabismus, unspecified 03/07/2006 DX:Mechanical strabismus, unspecified; COMMENT: surgical correction in her 20s Amblyopia, unspecified DX:Amblyo priscilla, unspecified; COMMENT: OS Mitral valve disorders(424.0) 03/06/2006 DX :Mitral valve disorders(424.0) Family History Medical History Relation Name Comments No Known Problems Aunt No Known Problems Brother 1 Other: hyperthyroid Brother 2 Other: brain tumor Father 65 No Known Problems Maternal Grandfather No Known Problems Maternal Grandmother Other: osteoarthritis Mother No Known Problems Other No Known Problems Paternal Grandfather No Known Problems Paternal Grandmother No Known Problems Sister 1 Hyperthyroidism Sister 2 Hashimotos t hyroiditis Heart attack Uncle maternal Blindness Neg Hx Breast cancer Neg Hx Cataracts Neg Hx Colon cancer Neg Hx Glaucoma Neg Hx Macular degeneration Neg Hx Ovarian cancer Neg Hx Strabismus Neg Hx Relation Name Status Comments Aunt Brother 1 Alive hyperthyroidism Brother 2 Father Maternal Grandfather Maternal Grandmother Mother Other Paternal Grandfather Paternal Grandmother Sister 1 Alive hypothyroid Sister 2 Uncle Social History Tobacco Use Types Packs/Day Years Used Date Smoking Tobacco: Never Smokeless Tobacco: Never Tobacco Cessation:Counseling Given: Not Answered Alcohol Use Standard Drinks/Week Comments No 0 (1 standard drink = 0.6 oz pur e alcohol) Comments Unknown Sex and Gender Information Value Date Recorded Sex Assigned at Not on file Legal Sex Female 11:25 PM EST Gender Identity Not on file Sexual Orientation Not on file Obstetrics History Last Filed Vital Signs Vital Sign Reading Time Taken Comments Blood Pressure 100/60 11/04/2021 9:02 AM EDT Pulse 69 11/04/2021 9:02 AM EDT Temperature - - Respiratory Rate - - Oxygen Saturation - - Inhaled Oxygen Concentration - - Weight 65.8 kg (145 lb) 06/18/2024 1:31 PM EST Height 157.5 cm (5' 2.01 ) 06/18/2024 1:31 PM ES T Body Mass Index 26.51 06/18/2024 1:31 PM EST Plan of Treatment Upcoming Encounters Date Type Department Care Team (Late st Contact Info) Description 12/17/2024 10:30 AM EDT Office Visit Orthopedic Surgery - [place] [address] [phone] Zenon Nolan, DPM [address] [address] Health Maintenance Due Date Last Done Comments Hepatitis A Vaccines (1 of 2 - Risk 2-dose series) 1983 Pneumococcal Vaccine: 50+ Years (1 of 1 - PCV) 2014 Zoster Vaccines (1 of 2) 2014 Cervical Cancer Screening: Pap Smear 11/20/2020 11/20/2017, 11/20/2017, 11/20/2017 DTaP,Tdap,and Td Vaccines (4 - Td or Tdap) 03/02/2021 03/02/2011, 09/20/2009, 02/14/2002 Colorectal Cancer Screening: Stool Based Tests (FOBT/FIT) 06/05/2022 Depression Screening 06/05/2022 HIV Screening 06/05/2022 Social Influencers of Health Screening 06/05/2022 COVID-19 Vaccine ( season) 2024 Influenza Vaccine (#1) 2024 Hepatitis B Vaccines (1 of 3 - Risk 3-dose series) 2024 RSV Immunization Patients 60+ Years Old (1 - Risk 60-74 years 1-dose series) 2024 Breast Cancer Screening 08/15/2024 08/15/19, 08/12/2021, 05/24/2017, Additional history exists Cholesterol Screening (Lipid Panel) 09/20/2026 09/20/2021 Hepatitis C Screening Completed 02/25/2011 HIB Vaccines Aged Out No longer eligi ble based on patient's age to complete this topic HPV Vaccines Aged Out No longer eligi ble based on patient's age to complete this topic IPV Vaccines Aged Out No longer eligi ble based on patient's age to complete this topic MMR Vaccines Aged Out No longer eligi ble based on patient's age to complete this topic Meningococcal ACWY Vaccine Aged Out N o longer eligible based on patient's age to complete this topic Meningococcal B Vacine Aged Out No lo nger eligible based on patient's age to complete this topic Pneumococcal Vaccine: Pediatrics (0 to 5 Years) and At-Risk Patients (6 to 64 Years) Aged Out No longer eligible based on patient's age to complete this topic RSV Immunization Patients Under 20 months Aged Out No longer eligible based on patient's age to complete this topic Varicella Vaccines Aged Out No longer eligible based on patient's age to complete this topic Procedures Procedure Name Priority Date/Time Associated Diagnosis Comments BACTERIAL IDENTIFICATION AND SUSCEPTIBILITY, AEROBIC Routine 08/15/2024 12:00 AM EST Other abnormal findings in urine KENZIE SCREENING DIGITAL Routine 08/15/2022 5:04 PM EST Encounter for screening mammogram for malignant neoplasm of breast LIPID PANEL Routine 09/20/2021 PAP SMEAR Routine 11/20/2017 HM HEPATITIS C SCREENING Routine 02/25/2011 from Last 3 Months or Most Recently Relevant to Health Maintenance Results * (ABNORMAL) Bacterial identification and susceptibility, aerobic (08/15/2024 12:00 AM EST) Culture, Bacterial ID and Sensitivity Escherichia coli(A) MANUEL 08/17/2024 8:33 AM EST [facility] Comment: This is an edited result. Previous organism was Gram negative bacilli on 08/16/2024 at 1108 EST. Other Urine specimen from urethra / Unknown 08/15/2024 08/16/2024 10:20 AM EST Narrative Organism Antibiotic Method Susceptibility Escherichia coli Amoxicillin/Clavulanate MANUEL <=2 ug/ml: Susceptible Escherichia coli Ampicillin/Sulbactam MANUEL <=2 ug/ml: Susceptible Escherichia coli Piperacillin/Tazobactam MANUEL <=4 ug/ml: Susceptible Escherichia coli Cefazolin (Urine) MANUEL <=1 ug/ml: Susceptible Escherichia coli Cefoxitin MANUEL <=4 ug/ml: Susceptible Escherichia coli Ceftazidime MANUEL <=0.5 ug/ml: Susceptible Escherichia coli Ceftriaxone MANUEL <=0.25 ug/ml: Susceptible Escherichia coli Cefepime MANUEL <=0.12 ug/ml: Susceptible Escherichia coli Meropenem MANUEL <=0.25 ug/ml: Susceptible Escherichia coli Amikacin MANUEL 2 ug/ml: Susceptible Escherichia coli Gentamicin MANUEL <=1 ug/ml: Susceptible Escherichia coli Ciprofloxacin MANUEL <=0.06 ug/ml: Susceptible Escherichia coli Levofloxacin MANUEL <=0.12 ug/ml: Susceptible Escherichia coli Nitrofurantoin MANUEL <=16 ug/ml: Susceptible Escherichia coli Trimethoprim/Sulfamethoxazole MANUEL <=20 ug/ml: Susceptible us Demetria Velasco MD LAB MICROBIOLOGY - G ENERAL ORDERABLES Final Result [facility] ([facility] [address] [place] [address], * KENZIE SCREENING DIGITAL (08/15/2022 5:04 PM EST) Anatomical Region Laterality Modality Mammography 08/15/2022 10:5 3 AM EST Narrative 08/15/2022 5:04 PM EST [facility] Diagnostic Imaging Department [address] [place] [address] Patient: ??ELLEN LINDO ?/Age/Sex: 1965 - 57 - F Unit#: ??[id number] ? Location/Status: ??SPDIMAM/REG CLI ? Mnemonic/Ordering Site: ??DIGSC/SPMAM Ordering Physician: ??CARLOS FRANCES MD [facility] Screening Digital - 08/15/22 - 1137 INDICATION: SCREENING COMPARISON: [facility] and outside mammograms dating back to 04/03/2016 TECHNIQUE: CC and MLO views of the breasts were obtained, using full field digital mammography with 3D tomosynthesis views in the MLO projection. XCCL view of the right breast was obtained. Computer aided detection with the [employer] 7.2-H was employed. FINDINGS: The breasts contain scattered fibroglandular tissues. No suspicious masses, suspicious microcalcifications, or areas of architectural distortion are identified. ??There are no secondary signs of breast malignancy. IMPRESSION: ??No specific mammographic evidence of breast malignancy. Lack of an imaging correlate should not deter or delay biopsy of a clinically significant palpable finding. BI-RADS ??- Category 1: Negative 3341F, 7025F Annual screening mammography is recommended. Patient entered into a reminder system with a target date for the next mammogram. (G0202 / [id number]) , ??[id number] Dictating Physician: ??FRANCISCO DANIELSON MD Electronically Signed by: ??FRANCISCO DANIELSON MD Dic Date/Time: ??08/15/221700 Sign date/Time: ??08/15/221703 Procedure Note Francisco Danielson MD - 08/04/2023 [facility] Diagnostic Imaging Department [address] [place] [address] Patient: ELLEN LINDO Pito Cespedes/Age/Sex: 1965 - 57 - F Unit#: [id number] Location/Status: SPDIMA/REG CLI Mnemonic/Ordering Site: [facility]IGME/[facility] Ordering Physician: CARLOS FRANCES MD [facility] Screening Digital - 08/15/22 - 1137 INDICATION: SCREENING COMPARISON: [facility] and outside mammograms dating back to 04/03/2016 TECHNIQUE: CC and MLO views of the breasts were obtained, using full field digital mammography with 3D tomosynthesis views in the MLO projection. XCCL viewof the right breast was obtained. Computer aided detection with the [employer] 7.2-H was employed. FINDINGS: The breasts contain scattered fibroglandular tissues. No suspicious masses, suspicious microcalcifications, or areas ofarchitectural distortion are identified. There are no secondary signs of breastmalignancy. IMPRESSION: No specific mammographic evidence of breast malignancy. Lack of an imaging correlate should not deter or delay biopsy of aclinically significant palpable finding. BI-RADS - Category 1: Negative 3341F, 7025F Annual screening mammography is recommended. Patient entered into a reminder system with a target date for the next mammogram. [id number] / [id number]) , [id number] Dictating Physician: FRANCISCO DANIELSON MD Electronically Signed by: FRANCISCO DANIELSON MD Dic Date/Time: 08/15/221700 Sign date/Time: 08/15/221703 Carlos Frances MD IMG BI PROCEDURES Final Result * (ABNORMAL) Lipid panel (09/20/2021) LDL/HDL Ratio 2 0 - 4 Triglycerides 109 0 - 150 mg/dL Cholesterol 202(A) 0 - 200 mg/dL HDL 85 >=40 mg/dL LDL Cholesterol 96 0 - 100 mg/dL Blood Venous blood specimen / Unknown Historical Provider LAB BLOOD ORDERABLES Elenita l Result * Pap smear (11/20/2017) 11/20/2017 Narrative HISTORICAL TESTING LAB RESULTING AGENCY - 11/29/2017 8:05 AM EDT [id number] THINPREP PAP, IMAGED: ATYPICAL SQUAMOUS CELLS OF UNDETERMINED SIGNIFICANCE (ASCUS) ??. RESULT OF APTIMA HIGH RISK HPV ASSAY: ?? NEGATIVE ?? (SEROTYPES 16,18,31,33,35,39,45,51,52,56,58,59,66,68) STEPHON RODRIGUEZ(ASCP) (CASE SCREENED 11 22 2017) SHARMAINE PRINCE M.D., PATHOLOGIST (CASE ELECTRONICALLY SIGNED 11 28 2017) ADEQUACY: SATISFACTORY. ENDOCERVICAL/TRANSFORMATION ZONE COMPONENT PRESENT. SOURCE: THINPREP PAP HPV ANY DX: ??REFLEX 16 AND 18, CERVICAL, IMAGED: CLINICAL INFORMATION: HPV ANY DIAGNOSIS. Z12.4, Z01.419, HORMONES, PAP HX: ASCUS HPV POSITIVE 2015 Ellen Giles DO LAB CYTOLOGY ORDERABLES Final Result HISTORICAL TESTING LAB RESULTING AGENCY * Hepatitis C Screening (02/25/2011) Hepatitis C Screening Abstracted us Historical Provider HEALTH MAINTENANCE Final Result from Last 3 Months or Most Recently Relevant to Health Maintenance Insurance [place] [address] Member Subscriber Plan / Payer (Ef fective 2018-Present) Name:Ellen Lindo Relation to Subscriber:Self Name:Ellen Lindo Payer ID:[id number] Group ID:[id number] Type:Not on file Address: [place] [address] [address] [address] Assistant Relationship Specialty Start Date End Date Carlos Frances MD [address] [address] PCP - General Internal Medicine 10/04/17
--- OUTSIDE RECORDS SUMMARY | 2024-09-05 19:24 | XMS_ITS | Encounter Summary ---
Author Organization [facility] Address [address] [place] [address] Care Team Providers Care Health Unit Clerk Name Role Phone Kel Gardner MD Primary Care Provider [phone] Encounter Details Date Type Department Care Team (Late st Contact Info) Description 08/16/2024 Lab Requisition [facility] - Main Lab [address] [facility] [place] [address] Demetria Velasco MD [address] [address] Other abnormal findings in urine Social History Tobacco Use Types Packs/Day Years Used Date Smoking Tobacco: Never Smokeless Tobacco: Never Alcohol Use Standard Drinks/Week Comments No 0 (1 standard drink = 0.6 oz pur e alcohol) Comments Unknown Sex and Gender Information Value Date Recorded Sex Assigned at Not on file Legal Sex Female 11:25 PM EST Gender Identity Not on file Sexual Orientation Not on file documented as of this encounter Plan of Treatment Upcoming Encounters Date Type Department Care Team (Late st Contact Info) Description 12/17/2024 10:30 AM EDT Office Visit Orthopedic Surgery - [place] [address] [address] Zenon Nolan, DPM [address] [address] documented as of this encounter Procedures Procedure Name Priority Date/Time Associated Diagnosis Comments BACTERIAL IDENTIFICATION AND SUSCEPTIBILITY, AEROBIC Routine 08/15/2024 12:00 AM EST Other abnormal findings in urine documented in this encounter Results * (ABNORMAL) Bacterial identification and susceptibility, aerobic (08/15/2024 12:00 AM EST) Culture, Bacterial ID and Sensitivity Escherichia coli(A) MANUEL 08/17/2024 8:33 AM EST [facility] Comment: This is an edited [...] MICROBIOLOGY - G ENERAL ORDERABLES Final Result [facility] [address] [place] [address], [place] [phone] documented in this encounter Visit Diagnoses Diagnosis Other abnormal findings in urine documented in this encounter Care Teams Health Unit Clerk Relationship Specialty Start Date End Date Kel Gardner MD [address] [address] PCP - General Internal Medicine 10/04/17 documented as of this encounter
--- OUTSIDE RECORDS SUMMARY | 2024-09-05 19:25 | XMS_ITS | Referral Summary ---
Author Organization [facility] Address [address] [place] [address] Care Team Providers Care Faith Healer Name Role Phone Kel Gardner Primary Care Provider [phone] Allergies Active Allergy Reactions Criticality Noted Date Comments Carisoprodol Hives 10/03/2017 Diflunisal Hives 10/03/2017 Naproxen Hives 10/03/2017 Omeprazole Hives 10/03/2017 Sulfa (Sulfonamide Antibiotics) Hives 08/2021 Sulfasalazine Anaphylaxis High 10/03/[address] (CYMBALTA) 60 mg capsule duloxetine 60 mg capsule,delayed release Active zolpidem CR (AMBIEN CR) 12.5 mg CR tablet Take 12.5 mg by mouth nightly as needed. 2 Active oxyCODONE-aceta minophen (PERCOCET) 5-325 mg tablet Take 1 tablet by mouth. 2 Active diazePAM (VALIUM) 5 mg tablet Take 5 mg by mouth. 2 Active Cymbalta 60 mg capsule Take 60 mg by mouth once a day. 2 Active amLODIPine (NORVASC) 2.5 mg tablet Take 2.5 mg by mouth once a day. 2 Active docusate sodium (COLACE) 100 mg capsule Take 100 mg by mouth 3 times a day as needed. 2 Active polyethylene glycol 3350 (MIRALAX) powder Active lidocaine-prilo waylon (EMLA) cream lidocaine-prilo waylon 2.5 %-2.5 % topical cream Active melatonin tablet Active pregabalin (LYRICA) 20 mg/mL solution Take 60 mg by mouth daily. Active hydrOXYzine HCL (ATARAX) 25 mg tablet Take 25-50 mg by mouth nightly as needed. 2 Active ondansetron (ZOFRAN) 4 mg tablet Take 4 mg by mouth every 8 hours as needed. 2 Active cholecalciferol 25 mcg (1,000 unit) tablet Take 2,000 Units by mouth once a day. 2 Active Social History Tobacco Use Types Packs/Day Years Used Date Smoking Tobacco: Never Assessed Comments Unknown Sex and Gender Information Value Date Recorded Sex Assigned at Female 10/30/2021 9:34 PM EDT Legal Sex Female 1:47 PM EDT Gender Identity Female 10/30/2021 9:34 PM EDT Sexual Orientation Straight 10/30/2021 9: 34 PM EDT Last Filed Vital Signs Vital Sign Reading Time Taken Comments Blood Pressure 120/73 11/02/2021 1:52 PM EDT Pulse 70 11/02/2021 1:52 PM EDT Temperature - - Respiratory Rate - - Oxygen Saturation - - Inhaled Oxygen Concentration - - Weight - - Height - - Body Mass Index - - Plan of Treatment Not on file Insurance [facility] Care Teams Faith Healer Relationship Specialty Start Date End Date Kel Gardner PCP - General Internal Medicine 10/22/21
--- OUTSIDE RECORDS SUMMARY | 2024-09-05 19:25 | XMS_ITS | Data Portability ---
Author Organization [facility] [employer], [id number] Address [address] [place] [address] Assessment No assessment recorded. Plan of Treatment Reminders Order Date Submit [...] Not Available Not Available No t Available lidocaine-pr ilocaine 2.5 %-2.5 % topical [...] Available Not Available No t Available Vitals None Recorded Social History None recorded. Functional Status None recorded. Mental Status None recorded. Family History Nothing Reported. Medical History No medical history recorded. Gynecological HistoryNo gynecological history recorded. Obstetrics History GPAL:G 0 P 0 0 0 0 Past Encounters Encounter ID Performer Location Encounter Start Date Encounter Closed Date Diagnosis/Indication Diagnosis SNOMED-CT Code Diagnosis ICD10 Code Diagnosis Note [id number] [address] [place] [address] 12/01/2017 10:08:00 12/01/2017 12:03:44 Health Concerns Section Related Observation LastModified by Organization Drake ls LastModified Time None Recorded Concern Status LastModified by Organization Details LastModified Time None Recorded Advance Directives Directive None Recorded Payers Encounter Date Sequence Insurance Name Policy Number Policy Ibraihm Covered Member ID Ibrahim Member ID Guarantor Name 12/01/2017 1 [place] Stand Offer [place] Ellen Pompa [id number] Ellen Pompa 12/01/2017 2 [place] [facility] Ellen Pompa [id number] Ellen Pompa OBGyn Episode No OBEpisode recorded.
--- OUTSIDE RECORDS SUMMARY | 2024-09-05 19:25 | XMS_ITS | Continuity of Care Document ---
Author Organization [facility] Address [address] [place] [address]- Care Team Providers Care Engraver Automatic Name Role Phone Kel Gardner MD Primary Care [id number] Date(s): 08/28/24 - 09/04/24 [facility] [address] [place], [place] [address] Attending Physician: Delano Fisher MD Encounter Type: Office Visit Allergies, Adverse Reactions, Alerts Substance Criticality Severity [...] 8:32:00 PM EST, Route to Pharmacy Electronically, [facility]/pharmacy #[id number] Tablet, Partial fill upon patient request if the prescription is for a schedule II opioid drug., 160, cm, 04/10/24 14:58:00 EDT, Height Start Date: 07/30/24 Status: Ordered Quantity: 112.0 Unit: tablet Repeat number: 1 D3 1000 intl units (25 mcg) oral tablet 2 tablet = 50 mcg, By Mouth, Daily, # 180 tablet, 1 Refills, Maintenance, 02/20/23 8:49:00 AM EDT, [facility]/pharmacy #[id number], Partial fill upon patient request [...] capsule,5 Refills, Maintenance, 01/13/24 12:43:00 PM EDT, [facility]/pharmacy #[id number], 160, cm, 01/03/24 10:27:00 EDT, Height, 66, kg, 04/10/22 15:51:00 EDT, Dry Weight Start Date: 01/13/24 Status: Ordered Quantity: 100.0 Unit: capsule Repeat number: 6 Golytely - oral powder for reconstitution 240 mL, By Mouth, Every 10 minutes, # 1 each, 0 Refills, Maintenance, 09/20/23 2:54:00 PM EDT, REC Powder, [facility]/pharmacy #[id number], Partial fill upon patient request [...] 1 Refills, Maintenance, 06/19/24 8:50:00PM EST, Capsule, [id number], Partial fill upon patient request [...] CRPS (complex regional pain syndrome), lower limb; [facility] Confirmed Active Constipation Confirmed Active [...] incontinence; [facility] Confirmed Active Vital Signs Most recent to oldest [Reference Range]: 1 Height 160 cm (08/28/24 11:09 AM) Oxygen Saturation [94-100 %] 97 % (08/28/24 11:09 AM) Pulse Rate [55-90 bpm] 72 bpm (08/28/24 11:09 AM) Blood Pressure [90-138/55-84 mm Hg] 116/ 82mm Hg (08/28/24 11:09 AM) Temperature [96.8-100.4 DegF] 98.3 DegF (08/28/24 11:09 AM) Mode of Delivery (Oxygen) Room air (08/28/24 11:09 AM) Blood pressure sites Arm, right (08/28/24 11:09 AM) Temperature Route Temporal (08/28/24 11:09 AM) Social History Social History Type Response Smoking Status Never smoker entered on: 05/09/14 Sex Sex Representation Female (finding) Note * Radha Oh: PERFORM Event Display: Patient Education/Instruction Authored Date: [id number] Ambulatory Adult Visit Summary [facility] [address] [place] [address] Name: GLORIA LINDO : 1965?? Visit: 08/28/2024 11:00?? Ambulatory Visit Instructions ?? Your Care Team Primary Care Provider Kel Gardner MD? This Visit Provider Anne Josue MD, Delano Rowell Your Diagnosis Chronic right hip pain Other chronic pain Pain in right buttock Vitals Signs Temperature: 98.3 DegF Height: 160 cm Pulse Rate: 72 bpm ?? Systolic Blood Pressure: 116 mm Hg ?? Diastolic Blood Pressure: 82 mm Hg ?? Oxygen Saturation: 97 % ?? What to do next Scheduled Follow-Up Appointments Monday 11:20 AM EDT ?? With: Kel Gardner MD Where: [facility] [address] [place] [address]- Status: Pending Monday 1:40 PM EDT ?? With: Kel Gardner MD Where: [facility] [address] [place] [address]- Status: Pending Medications The list below reflects the information in our records and provided by you today along with any changes made during this visit. Please continue your medications until treatment is completed or stopped by your provider. If this is different from the information you have or there are other questions,please contact the prescribing provider. What How Much When Why Instructions New MethylPREDNISolone (Medrol 4 mg oral tablet) 1 pack/packet Oral Daily Chronic right hip pain Other chronic pain Pain in right buttock Duration: 6 Days as directed on package labeling ?? Pickup at [facility]/pharmacy #[id number] Unchanged Cholecalciferol (D3 1000 intl units (25 mcg) oral tablet) 2 tab(s) Oral Daily Unchanged Diazepam (diazepam 5 mg oral tablet) TAKE 1 TABLET BY MOUTH THREE TIMES A WEEK NEEDED FOR PANIC ?? Unchanged Docusate (docusate sodium 100 mg oral capsule) See instructions TAKE 1 CAPSULE BY MOUTH 3 TIMES DAILY NEEDED FOR CONSTIPATION. ?? Unchanged Lidocaine/ Prilocaine Topical (lidocaine-prilocaine 2.5%-2.5% topical cream) See instructions Apply small amount to feet nightly as needed for pain ?? Unchanged Melatonin (Melatonin 10 mg oral tablet, disintegrating) TAKE 1 TABLET BY MOUTH EVERY DAY AT BEDTIME NEEDED FOR INSOMNIA ?? Unchanged Oxycodone / Acetaminophen (acetaminophen-oxyCODONE 325 mg-5 mg oral tablet) 1 tab(s) Oral Every 6 hours as needed for Pain , Moderate TAKE 1 TABLET BY MOUTH EVERY 6 HOURS NEEDED FOR MODERATE PAIN. ??Dx ??M79.671 ?? Unchanged PEG Electrolyte Solution (Golytely - oral powder for reconstitution) 240 Milliliter Oral Every 10 minutes Unchanged Pregabalin (Lyrica 75 mg oral capsule) 1 capsule Oral Twice a day Unchanged Zolpidem (zolpidem 12.5 mg oral tablet, extended release) TAKE 1 TABLET BY MOUTH EVERY DAY AT BEDTIME NEEDED ?? Pharmacy Information [facility]/pharmacy #[id number]: [address] [place] [address] [phone] Medications and Immunizations Administered Medications Given During Visit No medications given during this visit.?? Allergies (NKA means No Known Allergies) Lasix Levaquin Naprosyn??(hives) Prilosec??(hives) Soma??(total body rash & hives) diflunisal??(hives) sulfa drugs??(hives) Common Emergency Awareness Tips IS IT A STROKE? Act FAST and Check for these signs: FACE Does the face look uneven? ARM Does one arm drift down? SPEECH Does their speech sound strange? TIME Call at any sign of stroke ?? Heart Attack Signs Chest discomfort: Most heart attacks involve discomfort in the center of the chest and lasts more than a few minutes, or goes away and comes back. It can feel like uncomfortable pressure, squeezing, fullness or pain. Discomfort in upper body: Symptoms can include pain or discomfort in one or both arms, back, neck, jaw or stomach. Shortness of breath: With or without discomfort. Other signs: Breaking out in a cold sweat, nausea, or lightheaded. Remember, MINUTES DO MATTER. If you experience any of these heart attack warning signs, call to get immediate medical attention! ?? Smoking can increase your chances of developing chronic health problems and can cause harmful effects to other family members in your house. If you smoke, you are strongly encouraged to quit. Please call [facility] [facility] at [phone] or [phone] Custom ([phone]) or log in to [email or web address] for referrals to smoking cessation programs. ?? The National Suicide Prevention Hotline is available 23/01 if you or someone you know needs to find a reason to keep living. By calling 2-883-191-eRepublik (3356) you'll be connected to a skilled, trained counselor at a crisis center in your area. [facility] Simio Portal You can view and manage your care through the patient portal or by using a health care carlos of your choosing. [employer] is a website that allows you to securely view your medical information including your hospital discharge summary, office visit summaries, medications and follow-up visits. You can also request appointments, renew medications, and request access to your medical information using a health care carlos of your choosing, or just ask a question. You can enroll at [email or web address] or register during your next office visit. [facility], in keeping with [facility] guidance, no longer requires face masks for staff, patientsor visitors in most situations. Similiar to time spent indoors at other locations, there is the chance that you were exposed to repiratory viruses during your time with us (such as flu or COVID-19). If you develop symptoms concerning for a viral respiratory infection, please seek testing (and treatment if indicated) from your medical provider or home test kit. ?? Disclaimer: The information provided is of a general nature and is intended to be used in conjunction with the recommendations and advice of your health care practitioner. Every effort has been made to ensure that the information provided is accurate and complete at the time it is provided to you however, as your needs change, or, as new information becomes available, different or additional instructions may be required. ?? If you have questions, please consult with your primary care provider or pharmacist, as appropriate. This information is not intended to serve as substitution for assessment and evaluation by a qualified health care provider. If you do not have a primary care provider, you may find a [facility] provider by calling [facility] at [phone]. Patient Care team information Care Team Personnel Name: Xiomy Harrell RN Position: [facility] ED RN W/OE and Tasks Member Role: Primary Care Nurse Name: Karl Pierson RN Position: [facility] RN Member Role: Primary Care Nurse Name: Quita Mane Position: [facility] Outreach Member Role: Lifetime Consulting Physician Name: Kel Gardner MD Position: [facility] Physician - Primary Care Member Role: PCP Address: [address] [place] [address] Telecom: Name: Long Donahue RN Position: [facility] RN Member Role: Primary Care Nurse Name: Ephraim Cortés RN Position: [facility] Director Of Training Member Role: Primary Care Nurse Name: Shannan Bradford RN Position: [facility] RN Member Role: Primary Care Nurse Name: Jacey May MA Position: [facility] VERENA MA Member Role: Lifetime Consulting Physician Name: Selma Cates RN Position: [facility] RN Member Role: Primary Care Nurse Name: Nichole Tomlin RN Position: [facility] RN Member Role: Primary Care Nurse Care Team Related Persons Name: GIANA LENIN Name: ARNOLDO LINDO Name: SANTINO LINDO Insurance Providers Guarantor name: GLORIA LINDO Health Plan Information #: 1 Payer: [employer] Member Number: [id number] Policy Number: NA Group Number: NA Health Plan Information #: 2 Payer: [employer] Member Number: [id number] Policy Number: NA Group Number: NA
--- OUTSIDE RECORDS SUMMARY | 2024-09-05 19:25 | XMS_ITS | Clinical Summary ---
Author Organization [address] [address] Phone Care Team Providers Care Mural Painter Name Role Phone Unavailable Primary Care Provider Unavailabl e Social History Tobacco Use Types Packs/Day Years Used Date Smoking Tobacco: Never Assessed Comments Unknown Sex and Gender Information Value Date Recorded Sex Assigned at Not on file Legal Sex Female 10:39 AM EDT Gender Identity Not on file Sexual Orientation Not on file Plan of Treatment Health Maintenance Due Date Last Done Comments HIV screening 1977 Hepatitis C screening 1982 Tetanus adult (Td q 10,TDAP once) 1984 Cervical cancer screening 1985 Breast cancer screening 2004 Lipid disorder screening 2004 Colon cancer screening, Colonoscopy 2009 Diabetes screening 2009 Shingles vaccine (Shingrix) (1 of 2 - Shingrix (RZV) 2 Dose Standard Series) 2014 Influenza vaccine 02/01/2024 Covid-19 vaccine series ( - 2023-25 season) 2024 Pneumococcal Vaccine (50+ ye ars) (1 of 1 - PCV) 2029 RSV Discussion (1 - 1-dose 7 5+ series) 2039 Meningococcal Vaccine Aged Out No sangeeta deloris eligible based on patient's age to complete this topic Pneumococcal Vaccine (2 - 49 years) Aged Out No longer eligible based on patient's age to complete this topic
--- OUTSIDE RECORDS SUMMARY | 2024-09-05 19:25 | XMS_ITS | Data Portability ---
Author Organization [facility] Address [address] [address] Care Team Providers Care Motor Lodge Clerk Name Role Phone JUAN DANIEL CARLOS Primary Care Provider Assessment Encounter Date Assessment Date Assessment LastModified by Organization Details LastModified Time 12/03/2018 12/03/2018 Ellen Pompa is a 53 year old woman with complaints of pain in her right foot. She is S/P multiple surgeries in her right foot. She has history of chronic low back pain S/P spinal cord stimulator placement . She continues to have Right foot pain. On exam, the right foot is tender to touch. Allodynia is noted. Foot color is mottled and bluish purple. Cold to touch. Well healed scars are present. She has features of complex regional pain syndrome in Right foot . We discussed treatment options. 1. I recommend a consultation at [facility] . 2. Adjustment of her Spinal cord stimulator to better cover her right foot pain. 3. Active physical therapy to improve movement of the foot. [email or web address] Not available 12/27/2018 15:32:24 Plan of Treatment Reminders Order Date Submit Date Provider Last Modified By Organization Details Last Modified Time Details Appointments None record ed. Lab None record ed. Referral None record ed. Procedures None record ed. Surgeries None record ed. Imaging None record ed. Medication Orders None record ed. Patient TargetsNo targets recorded. Patient Instructions Encounter Date Encounter Id Patient Instructions Last Modified By Organization Details Last Modified Time 12/03/2018 [id number] She was advised against bed rest lasting longer than four days and to continue activities as tolerated. [email or web address] Not available 12/27/2018 15:32:28 Reason for Referral None Reported. Problems Name Problem SNOMED Code Status Onset Date Resolution Date Notes Provider Name and Address Organization Details Recorded Time Complex regional pain syndrome type I 988478083 Active Tamika vogel MD [address] , [address], [place], [address], [place] [facility] 9 11:14:29 Pain in right foot [id number] Active Tamika vogel MD [address] , [address], [place], [address], [place] [facility] 9 11:14:40 Lumbar post-lami nectomy syndrome 156563879 Active Tamika vogel MD [address] , [address], [place], [address], [place] [facility] 9 15:25:47 Problem Notes None recorded. Procedures Surgical History Date Name Laterality Status Provider Name and Address Organization Details Recorded Time Back Surgery completed Naima Fam [place] - [facility] 12/03/2018 11:25:37 Other completed Naima Fam [place] [facility] 12/03/2018 11:25:59 Other completed Naima Fam [place] [facility] 12/03/2018 11:24:58 Imaging Results None recorded. Procedure Notes None recorded. Medical Equipment None Reported. Allergies Allergen ID Allergen Name Allergen Category Reaction Reaction Severity Criticality Documentation Date Start Date Code Code System Note Provider Name and Address Organization Details Recorded Time 50315 Soma medicatio n hives Not available Not available 12/03/201852007 2 RxNorm Naima garcia ALTHE[facility] - [facility] 9 11:16:22 08899 naproxen medicatio n hives Not available Not available 12/03/2018 7258 RxNorm Naima garcia [place] - [facility] 9 11:16:43 91366 Substance with sulfonami de structure and antibacte rial mechanism of action (substanc e) medicatio n hives Not available Not available 12/03/2018 51552 8003 SNOMED Naima garcia [place] - [facility] 9 11:17:11 55611 Prilosec medicatio n hives Not available Not available 12/03/201802611 5 RxNorm Naima garcia [place] - [facility] 9 11:17:26 Medications Name Sig Start Date Stop Date Status Note LastModified by Organization Details LastModified Time ondansetron HCl 4 mg tablet TAKE 1 TABLET BY MOUTH EVERY 8 HOURS NEEDED FOR NAUSEA active Not Available Not Available No t Available prednisone 20 mg tablet TAKE 2 TABS DAILY FOR 5 DAYS, THEN 1 TAB DAILY FOR 4 DAYS 12/03 completed Not Available Not Available Not Available melatonin 3 mg tablet TAKE 1 TABLET BY MOUTH AT 9:00PM active Not Available Not Available No t Available ciprofloxac in 500 mg tablet TAKE 1 TABLET BY MOUTH TWICE A DAY 12/03 completed Not Available Not Available Not Available sulfamethox azole 800 mg-trimetho prim 160 mg tablet TAKE 1 TABLET BY MOUTH TWICE A DAY FOR 3 DAYS 12/03 completed Not Available Not Available Not Available lidocaine-p rilocaine 2.5 %-2.5 % topical cream active Not Available Not Available Not Available oxycodone-a cetaminophe n 5 mg-325 mg tablet TAKE 1 TABLET BY MOUTH TWICE A DAY NEEDED FOR PAIN 12/03 completed Not Available Not Available Not Available oxycodone-a cetaminophe n 10 mg-325 mg tablet active Not Available Not Available No t Available docusate sodium 100 mg capsule TAKE 1 CAPSULE BY MOUTH TWICE A DAY active Not Available Not Available No t Available lorazepam 1 mg tablet TAKE 1/2 TABLET UP TO FOUR TIMES A DAY NEEDED MAX 2 PILLS PER 24 HOURS 12/03 completed Not Available Not Available Not Available methylpredn isolone 4 mg tablets in a dose pack TAKE 6 TABLETS ON DAY 1 DIRECTED ON PACKAGE AND DECREASE BY 1 TAB EACH DAY FOR A TOTAL OF 6 DAYS 12/03 completed Not Available Not Available Not Available diazepam 5 mg tablet 1 tab in am and PM active Not Available Not Available No t Available nitrofurant oin monohydrate /macrocryst als 100 mg capsule TAKE 1 CAPSULE BY MOUTH TWICE A DAY FOR 7 DAYS 12/03 completed Not Available Not Available Not Available duloxetine 60 mg capsule,del ayed release TAKE 1 CAPSULE BY MOUTH EVERY DAY active Not Available Not Available No t Available lactulose 10 gram/15 mL oral solution TAKE 15 ML BY MOUTH DAILY NEEDED FOR CONSTIPAT ION. active Not Available Not Available No t Available Lyrica 50 mg capsule TAKE ONE CAPSULE BY MOUTH TWICE A DAY 12/03 completed Not Available Not Available Not Available Lyrica 75 mg capsule TAKE 1 CAPSULE BY MOUTH TWICE A DAY active Not Available Not Available No t Available zolpidem ER 12.5 mg tablet,exte nded release,mul tiphase TAKE 1 TABLET BY MOUTH EVERY DAY NEEDED FOR SLEEP active Not Available Not Available No t Available diclofenac 1 % topical gel 12/03 completed Not Available Not Available Not Available Vitals Date Recorded Heart rate Oxygen saturation Oxygen saturation in Arterial blood by Pulse oximetry Body height Body mass index (BMI) Body weight Systolic blood pressure Diastolic blood pressure Provider Name and Address Organization Details Last Updated DateTime 9 76 /min 97 % 97 % 157.48 cm 31.1 kg/m2 69076.7 g 143 mm[Hg] 93 mm[Hg] Naima Ireland [facility] 9 11:11:27 Social History Question Answer Notes LastModified by Organizat ion Details LastModified Time Tobacco Smoking Status Never Smoker Not Available [facility] 04/17/2020 03:16:10 What Is Your Level Of Alcohol Consumption? None [id number] Information not available 04/17/2020 Are You Currently Employed? No [id number] Information not available 04/17/2020 Which Illicit Or Recreational Drugs Have You Used? No [id number] Information not available 04/17/2020 Education 12 With Some College Information not available 12/03/2018 What Is Your Occupation? Disabled [id number] Information not available 04/17/2020 Live Alone Or With Others? Alone [email or web address] Information not available 12/03/2018 Marital Status Informatio n not available 12/03/2018 What Was The Date Of Your Most Recent Tobacco Screening? 12/27/2018 [id number] Information not available 04/17/2020 Sex: Unknown Functional Status None recorded. Mental Status None recorded. Family History Relationship Description Onset Age of this Age Resolved Age Notes LastModified by Organization Details LastModified Time Mother Cerebrovascu lar accident [email or web address] Not available 08/2018 11:22:10 Medical History Condition Response Migrane Y Arthritis Y Depression Y Gynecological HistoryNo gynecological history recorded. Obstetrics History GPAL:G 0 P 0 0 0 0 Past Encounters Encounter ID Performer Location Encounter Start Date Encounter Closed Date Diagnosis/Indication Diagnosis SNOMED-CT Code Diagnosis ICD10 Code Diagnosis Note [id number] Tamika Bess MD PAIN OFFICE [address] [place] [address] [place] [address] 12/03/2018 11:08:46 12/28/2018 09:05:28 Complex regional pain syndrome type I 034825234 G90.50 Pain in right foot 96[address] 14902 52135 M79.671 Lumbar post-laminectomy syndrome 083946232 M96.1 Health Concerns Section Related Observation LastModified by Organization Detai ls LastModified Time None Recorded Concern Status LastModified by Organization Details LastModified Time None Recorded Advance Directives Directive None Recorded Payers Encounter Date Sequence Insurance Name Policy Number Policy Ibrahim Covered Member ID Ibrahim Member ID Guarantor Name 12/03/2018 1 [facility] - DOS PRIOR TO 2022 - DUAL ELIGIBLE (MEDICARE REPLACEMENT/AD VANTAGE - HMO) Ellen Pompa [id number] Ellen Pompa Notes Date Note Type Note Provider Name and Address Organization Details Recorded Time 12/03/2018 text/html Ellen Alvarado si is a 53 year old woman with complaints of pain in her right foot. She also has history of chronic low back pain which radiates into groin area and bilateral lower extremities with numbness . She is S/P multiple back surgeries by Dr. Hudson and had a spinal cord stimulator placed by Dr. Ford in 04/2018. She has had multiple foot surgeries with placement and removal of hardware. She has had injections in her foot and low back with no pain benefit. She also has knee pain and is followed by Dr. Upton with [facility] and has received Hyaluronic acid injections with no pain benefit. She states her worse pain today is in her right foot. She describes the pain as a burning, throbbing pain which is present constantly and is associated with temperature and color changes. She states her right foot turns bluish to purple color and has seen Dr. Jha, Vascular surgeon and he has done tests which show no vascular insufficency. Current pain level ranges from 9-10/10. Pain interferes with sleep. She had a bone scan which shows decreased activity in the right foot in all 3 phases . Tamika Bess MD [address] [place] [address] , [address], [place], [address], [facility] 12/28/2018 10:38:35 OBGyn Episode No OBEpisode recorded.
--- OUTSIDE RECORDS SUMMARY | 2024-09-05 19:25 | XMS_ITS | Clinical Summary ---
Author Organization [facility] Address [address] [id number] Care Team Providers Care Surgeon Partner Name Role Phone Kel Gardner Primary Care Provider [phone] Allergies Active Allergy Reactions Criticality Noted Date [...] Mass Index - - Plan of Treatment Health Maintenance Due Date Last Done Comments Cervical Cancer Screening 1964 Cologuard 1964 Colon Cancer Screening 1965 Colonoscopy 1964 FOBT / Fit Test 1964 HIV Screening 1965 HPV and Pap Smear 1964 Hepatitis C Screening 1965 Pap Smear 1965 Sigmoidoscopy 1965 Mammogram 2004 Pneumococcal Vaccine: 50+ Ye ars (1 of 1 - PCV) 2014 Zoster Vaccines (1 of 2) 2014 DTaP,Tdap,and Td Vaccines (2 - Td or Tdap) 09/21/2019 09/20/2009 COVID-19 Vaccine ( - 2023-2 5 season) 2024 Influenza Vaccine (#1) 2024 Alcohol/Substance Use Screening 07/03/2024 Depression Screening and Follow-Up 07/03/2024 Social Drivers of Health Haydee ual Screening 07/03/2024 RSV Vaccine (60+ years old a nd patients) (1 - 1-dose 75+ series) 2039 Hepatitis B Vaccines Aged Out No long er eligible based on patient's age to complete this topic Insurance [facility] Care Teams Surgeon Partner Relationship Specialty Start Date End Date Kel Gardner PCP - General Internal Medicine 10/22/21
--- OUTSIDE RECORDS SUMMARY | 2024-09-05 19:25 | XMS_ITS | Encounter Summary ---
Author Organization [facility] Address [address] [place] [address] Care Team Providers Care Metal Mockup Maker Name Role Phone Unavailable Primary Care Provider Unavailabl e Reason for Referral * Consultation (Routine) - Closed Specialty Diagnoses / Procedures Referred By Contac t Referred To Contact Neurology Diagnoses Complex regional pain syndrome type 1 of left lower extremity Kel Gardner MD Phone: tel: fax: Neurology at [address] [address] Phone: tel: fax: Referral ID Status Reason Start Date Expiration Date V isits Requested Visits Authorized [id number] Closed Specialty Services Required 06/07/2023 2024 1 1 Encounter Details Date Type Department Care Team (Latest Contact Info) Description 06/07/2023 Transcribed Orders EXTERNAL REFERRAL SOURCE [address] [place] [id number] Kel Gardner MD [address] [place] [address] Complex regional pain syndrome type 1 of left lower extremity (Primary Dx) Social History Tobacco Use Types Packs/Day Years Used Date Smoking Tobacco: Never Assessed Comments Unknown Sex and Gender Information Value Date Recorded Sex Assigned at Not on file Legal Sex Female 10:39 AM EDT Gender Identity Not on file Sexual Orientation Not on file documented as of this encounter Plan of Treatment Scheduled Referrals Name Type Priority Associated Diagnoses Order Schedule Ambulatory referral to Neurology Outpatient Referral Routine Complex regional pain syndrome type 1 of left lower extremity Ordered: 06/07/2023 documented as of this encounter Visit Diagnoses Diagnosis Complex regional pain syndrome type 1 of left lower extremity- Primary documented in this encounter
== END 2024-09-05 16:18 | disposition home or self-care (01) ==
LOC: HO.LAB 16:17
PROVIDERS: PCP Internal Medicine; Visit Provider Registered Nurse
DX: G31.84 Mild cognitive impairment of uncertain or unknown etiology (principal)
CPT/HCPCS: 36415; 80048; 82607; 82746; 84443; 85025

== ENCOUNTER 2024-09-23 12:48 | Outpatient (REF) | payer OTHER, SELFPAY ==
--- NOTE | ~2024-09-23 | MR_ITS ---
EXAMINATION: MR BRAIN WITHOUT CONTRAST CLINICAL INFORMATION: 59-year-old female, Mild cognitive impairment. Migraines with aura. COMPARISON: 08/20/2021. TECHNIQUE: MRI of the brain was obtained using routine sequences without contrast. Examination performed on a 1.5 Lian Siemens high-field scanner. FINDINGS: There is no diffusion restriction. There is no intracranial hemorrhage, acute infarction, mass effect, or edema. Ventricles, sulci, and cisterns are normal in size and configuration for patient age. No shift of midline. No abnormal hemosiderin deposition is identified. There are numerous scattered punctate and minimally confluent foci of white matter T2 hyperintensity in the periventricular, subcortical, and hemispheric deep white matter, and central nguyễn. These foci are nonspecific but most likely represent small vessel ischemic changes. Overall distribution and appearance is similar. Midline structures appear normally formed. The pituitary gland appears normal. Posterior fossa structures appear normal. Cerebellar tonsils are appropriately located. Major flow voids are preserved within the skull base. The globes and orbital contents demonstrate no abnormalities. Paranasal sinuses are clear bilaterally. Nasal septum is midline without spur. The mastoids and tympanic cavities are normally aerated. Extracranial soft tissues demonstrate no abnormalities. No suspicious bone marrow signal abnormalities are evident. Mild to moderate degenerative changes bilateral TM joints. Atlantoaxial joint is normal. MR/MR head/brain wo con IMPRESSION: 1. No evidence of intracranial hemorrhage, acute infarction, mass effect, or edema. 2. There are numerous bilateral scattered foci of punctate and minimally confluent white matter T2 hyperintensity in the supratentorial periventricular, subcortical, and hemispheric deep white matter. No distribution or morphology specific to demyelinating disease. Findings statistically most likely represent essentially stable small vessel ischemic changes. These findings have also been described in association with migraines. 3. Ancillary findings as discussed. Electronically signed by: Nicolas Jacobson MD 09/24/2024 03:46 PM EDT
== END 2024-09-23 12:49 | disposition home or self-care (01) ==
LOC: HO.MRI 12:48
PROVIDERS: PCP Internal Medicine; Visit Provider Registered Nurse
DX: G31.84 Mild cognitive impairment of uncertain or unknown etiology (principal)
CPT/HCPCS: 70551

== ENCOUNTER → 2024-09-23 13:06 | Outpatient (BNV) | payer OTHER, SELFPAY | PROVIDERS: PCP Internal Medicine; Visit Provider Radiology Diagnostic Radiology | DX: G31.84 Mild cognitive impairment of uncertain or unknown etiology (principal) | CPT/HCPCS: 70551 ==

== ENCOUNTER 2025-04-16 09:28 | Outpatient (AMB) | payer OTHER, SELFPAY ==
--- NOTE | 2025-04-16 09:29 | A.OFFVIS_ITS ---
Intake Visit Reasons: 6 months f/u Allergies carisoprodol (From Soma) Adverse Reaction (Intermediate, Verified 04/16/25 09:41 ) hives diflunisal Adverse Reaction (Intermediate, Verified 04/16/25 09:41) hives omeprazole (From Prilosec) Adverse Reaction (Intermediate, Verified 04/16/25 09:41) hives Sulfa (Sulfonamide Antibiotics) Adverse Reaction (Intermediate, Verified 04/16/25 09:41) hives Medication List - Last Reconciled 04/16/25 by Zenia Mosquera CNP cholecalciferol (vitamin D3) 1,000 units PO DAILY docusate sodium 0 mg PO lidocaine 4% (Lidocaine Pain Relief) 2 patches topical DAILY melatonin 3 mg PO QPM ondansetron HCl 4 mg PO Q8H PRN oxycodone 10 mg PO TID PRN oxycodone-acetaminophen 5-325 mg 1 - 2 tabs PO TID PRN polyethylene glycol 3350 (Gavilax) grams PO pregabalin 75 mg PO BID sennosides (senna) 17.2 mg PO BEDTIME PRN zolpidem ER 6.25 mg PO BEDTIME HPI Comments Details: She had L2-3 laminectomy at [facility] on 03/25/2025. Planning to start PT in 05/2025 at 6 weeks post-op. Has been having more tingling to L leg and feels L leg is weaker since surgery. Says L leg has always been her good leg which she uses to pivot on, but now feels like it will give out at times. Transferring and walking some with walker, while PHONE SPECIALIST follows behind with wheelchair. No falls. More pain after surgery. Taking oxycodone 10mg along with oxycodone- acetaminophen 5-325mg for total of oxycodone 15mg about 4x/day. Continues to report short-term memory issues and forgetfulness, has to write everything down. Sleep was not so good, despite taking zolpidem ER. Stress related to health and pain. She primarily uses wheelchair, but was walking holding onto wheelchair or with cane at home. She was seeing pain management doctor at [facility] who ordered MRI of thoracic and LS spine which she completed at [facility] in 08/2024 and it apparently showed some stenosis. No longer seeing pain management. She returned in 08/2024 after 16 months with new concern of forgetfulness. She would misplace things, forget what she went into a room for, had trouble remembering dates or appointments, and needed to write things down. She primarily uses wheelchair, but walks some at home holding onto wheelchair or cane. Some ringing in her ears off and on for about 1 year, waiting for an appointment with ENT. Previously, right foot pain and lot of LBP radiating into right hip and foot. Was using electrical stim, acupuncture, and CBD gummies. Between [id number], had 4 admissions with palpitations and slurring of speech. Se[facility] [place] [facility] and they thought it was drugs. Wheel chair bound and can stand with walker. She has chronic low back pain and thoracic back pain. Had SC stimulator removed in January [address] Ford who implanted it on 04/02/18 for chronic low back pain status post fusion in 2003, Back fusion 04/18/16 Dr Hudson. 50% reduction in leg pain, but back pain is unchanged. She also has pain in both feet having had some surgery in the right foot for her metatarsal in September of 2015. She's had some problems with anxiety and depression. Brain MRI done on 11/11/15 shows nonspecific white matter lesions in the deep white matter and the subcortical area without any area ventricle or lesions. Told she has CRPS. Hands get burning pain R>L and also get mottled and cold with bluish discoloration. Shoulder and axillary pains. [facility] Medical History (Updated 04/16/25 @ 09:40 by Zenia Mosquera CNP) CRPS (complex regional pain syndrome) type I of lower limb Post laminectomy syndrome Mitral regurgitation Chronic low back pain Anxiety Exotropia of left eye Chronic urticaria Insomnia Obesity Venous insufficiency Chronic pain in right foot Neuropathy Urinary incontinence Vitamin D deficiency Urinary retention Surgical History (Updated 04/16/25 @ 12:40 by Zenia Mosquera CNP) S/P lumbar laminectomy Spinal cord stimulator dysfunction H/O foot surgery Social History (Updated 02/01/21 @ 13:09 by Chidi Mireles) Alcohol intake: never Patient Tobacco Use Status: Never used Tobacco Review of Systems Const Denies chills, Denies daytime sleepiness, Reports difficulty sleeping, Denies fatigue, Denies fever(s), Denies frequent falls, Denies headache(s), Denies increased appetite, Denies poor appetite, Denies snoring, Denies weakness, D enies weight gain and Denies weight loss Eyes Denies loss of vision ENT Denies vertigo, Denies dizziness, Denies headache(s) and Denies neck pain Card Denies chest pain at rest, Denies chest pain with activity, Denies syncope, Denies leg edema, Denies palpitations, Denies dyspnea and Denies dyspnea on exertion Resp Denies cough, Denies dyspnea, Denies dyspnea on exertion and Denies snoring GI Denies abdominal pain, Denies constipation, Denies heartburn, Denies diarrhea a nd Denies nausea Denies urinary frequency, Denies urinary incontinence and Reports urinary urgency Musc Denies abnormal gait, Reports back pain, Denies myalgias, Reports arthralgias, Denies neck pain, Denies numbness and Denies tingling Neuro Denies abnormal gait, Denies vertigo, Denies dizziness, Denies syncope, Denies frequent falls, Denies headache(s), Denies lack of coordination, Denies loss of vision, Reports memory loss, Denies numbness, Denies Other visual disturbances, Denies restless legs, Denies seizure-like activity, Denies tingling, Denies paresthesias, Denies tremor(s) and Denies weakness Psych Denies anxiety, Denies depression, Denies auditory hallucinations, Reports memory loss and Denies visual hallucinations Endo Denies fatigue and Denies palpitations Physical Exam Const Other: General Appearance:? normal, in no acute distress. Heart:? S1, S2 normal, no murmurs. Lungs:? clear anteriorly and posteriorly. Musculoskeletal:? normal. Extremities:? no edema. Psych:? alert, as below. Neuro Other: Abnormal Neurological Findings:?Wheelchair bound for 7+ years. Has walker to stand for a while at home, transfers by herself. Congenital divergent strabismus L eye. Absent ankle reflexes. MMSE 24/30. Mental Status: alert, as below. Cranial Nerves: Pupils are equal, round, and reactive to light. External ocular muscles are intact. Visual wong are full, no ptosis. Face is symmetrical, no facial weakness or droop. Facial sensations are normal. Tongue protrudes in midline. Palate elevates symmetrically. Shoulder shrugging is normal Motor Examination: As above. Sensory Exam: Normal light touch, temperature, pinprick, vibration, and joint- position sensations. Rhomberg sign is absent. Coordination: No ataxia. No titubation. Gait Exam: In wheelchair, only bears weight on left foot and pivots. Cerebellar Signs: Imoviu-mk-ifse is okay. Extrapyramidal System: No tremor, rigidity with normal facial expressions. No bradykinesia. No bradyphrenia. Normal arm swing and posture. No propulsion or retropulsion. Speech: Normal. MMSE Level of Consciousness: Alert. Orientation: Knows correct year, month, day and season. Not date. Knows correct city, county and state. Knows correct location and floor. Registration: Able to register 3 objects. Attention: Serial 7's performed accurately to 93. Recall: Able to recall 2 out of 3 objects. Language: Normal spontaneous speech, fluency, repetition, naming, comprehension, reading, and writing. Total Score: 24/30. Results Reviewed Results Reviewed: 02/01/23 NCV/EMG UE Normal motor and sensory nerve conduction velocities in the upper extremities. Normal EMG in the right C5-T1 innervated muscles. 08/2024 EEG: Mild, diffuse slowing 08/2024 MRI brain:?small vessel ischemic changes 08/2024 labs ok 12/06/22 NCV/EMG LE Motor axonal loss in the peroneal nerves bilaterally. EMG of the left L4-S1 innervated muscles is consistent with neuropathic changes. 07/22/21 EEG- paroxysmal laverne theta discharges in fronto temporal distribution , >R 08/24 MRI There are moderate scattered T2 signal changes throughout the supratentorial white matter and central nguyễn in a nonspecific distribution. No enhancing lesions. 03/29 MRI C spine shows degen disc disease at C4-5-6-7 levels without HNP or cord compression or signiificant cord compression or foraminal encroachmnet. Assessment & Plan Assessment & Plan (1) MCI (mild cognitive impairment): Code(s): G31.84 - Mild cognitive impairment of uncertain or unknown etiology Category: Medical Plan: She was not interested in starting medication at previous appointment and was still not interested at this time. There were multiple factors that could contribute to cognitive symptoms, which she was educated on, including recent surgery, medications, chronic pain, and insomnia. She was on multiple medications that could contribute to cognitive symptoms including oxycodone, oxycodone-acetaminophen, pregabalin, and zolpidem. She was encouraged to stay physically, socially, and intellectually active. (2) CRPS (complex regional pain syndrome) type I of lower limb: Code(s): G90.529 - Complex regional pain syndrome I of unspecified lower limb Category: Medical Qualifiers: Laterality: right Qualified Code(s): G90.521 - Complex regional pain syndrome I of right lower limb (3) Cerebral microvascular disease: Code(s): I67.89 - Other cerebrovascular disease Category: Medical (4) Chronic low back pain: Code(s): M54.5 - Low back pain; G89.29 - Other chronic pain Category: Medical Qualifiers: Back pain laterality: unspecified Sciatica presence: unspecified whether sciatica present Qualified Code(s): M54.50 - Low back pain, unspecified; G89.29 - Other chronic pain Plan: s/p lumbar laminectomy in 03/2025 reporting increased left leg weakness and tingling following procedure, no falls. She advised to inform surgeon of symptoms. Plan . Coding Level of Care Code Est Pt Level 4 (48918) Diagnoses MCI (mild cognitive impairment) G31.84 Complex regional pain syndrome type 1 of right lower extremity G90.521 Laterality: right Cerebral microvascular disease I67.89 Chronic low back pain, unspecified back pain laterality, unspecified whether sciatica present M54.50; G89.29 Back pain laterality: unspecified Sciatica presence: unspecified whether sciatica present
--- OUTSIDE RECORDS SUMMARY | 2025-04-16 10:47 | XMS_ITS | Encounter Summary ---
Author Organization [facility] Address [address] [place] [address] Care Team Providers Care Financial Controller Name Role Phone Kel Gardner MD Primary Care Provider Encounter Details Date Type Department Care Team (Late st Contact Info) Description 12/11/2024 Lab Requisition [facility] - Main Lab [address] [facility] [place] [address] Shiraz Rodrigez PA [address] [place] [address] Dysuria Social History Tobacco Use Types Packs/Day Years [...] Care Team (Late st Contact Info) Description 07/23/2025 10:30 AM EST Office Visit Orthopedic [facility] [address] [facility] [address] [place] [address] Zenon Nolan DPM [address] [facility] [address] [place] [address] 09/23/2025 11:45 AM EDT Office Visit Orthopedic [facility] [address] [facility] [address] [place] [address] Radha Burns MD [address] [facility] [address] [place] [address] documented as of this encounter Procedures Procedure Name Priority Date/Time Associated Diagnosis Comments BACTERIAL IDENTIFICATION AND SUSCEPTIBILITY, AEROBIC Routine 12/10/2024 12:00 AM EDT Dysuria documented in this encounter Results * (ABNORMAL) Bacterial identification and susceptibility, aerobic (12/10/2024 12:00 AM EDT) Pathologist [facility] Culture, Bacterial ID and Sensitivity Pseudomonas aeruginosa(A) MANUEL 12/12/2024 10:55 AM EDT [facility] Comment: This is an edited result. Previous organism was Gram negative bacilli on 12/11/2024 at 1122 EDT. Other Urine specimen from urethra / Unknown 12/10/2024 12/11/2024 10:33 AM EDT Narrative [facility] - 12/12/2024 10:55 AM EDT Additional colony types present in insignificant amounts. Organism Antibiotic Method Susceptibility Pseudomonas aeruginosa Piperacillin/Tazobactam MANUEL <=4 ug/ml: Susceptible Pseudomonas aeruginosa Ceftazidime MANUEL 2 ug/ml: Susceptible Pseudomonas aeruginosa Cefepime MANUEL 2 ug/ml: Susceptible Pseudomonas aeruginosa Meropenem MANUEL <=0.25 ug/ml: Susceptible Pseudomonas aeruginosa Amikacin MANUEL 4 ug/ml: Susceptible Pseudomonas aeruginosa Ciprofloxacin MANUEL <=0.06 ug/ml: Susceptible Pseudomonas aeruginosa Levofloxacin MANUEL <=0.12 ug/ml: Susceptible us [facility] MICROBIOLOGY - GENERAL ORDER ALEXANDER Final Result [facility] [address] [place] [address], documented in this encounter Visit Diagnoses Diagnosis Dysuria documented in this encounter Care Teams Financial Controller Relationship Specialty Start Date End Date Kel Gardner MD [address] [place] [address] PCP - General Internal Medicine 10/04/17 documented as of this encounter
--- OUTSIDE RECORDS SUMMARY | 2025-04-16 10:47 | XMS_ITS | Encounter Summary ---
Author Organization [facility] Address [address] [facility] [address] [place] [address] Phone Care Team Providers Care It Intern Name Role Phone Kel Gardner MD Primary Care Provider [phone] Encounter Details Date Type Department Care Team (Late st Contact Info) Description 02/19/2025 Procedure Pass [facility] Scan - [address] [address] Social History Tobacco Use Types Packs/Day Years Used Date Smoking Tobacco: Never Assessed Education Answer Date Recorded Are you interested in more education? Not on tammy e 10/28/2022 Are you concerned about learning? Not on file 10/28/2022 No 10/28/2022 No 10/28/2022 Digital Access Answer Date Recorded No 11/28/2022 No 11/28/2022 Reliable internet access at home? Not on file 11/28/2022 Device with a working camera? Not on file Comments Unknown Sex and Gender Information Value Date Recorded Sex Assigned at Female 08/23/2023 8:46 AM EST Legal Sex Female 11:17 AM EDT Gender Identity Female 08/23/2023 8:46 AM EST Sexual Orientation Straight 08/23/2023 8: 46 AM EST documented as of this encounter Plan of Treatment Upcoming Encounters Date Type Department Care Team (Late st Contact Info) Description 07/10/2025 2:45 PM EST Office Visit [facility] Orthopedics Spine [address] [facility], [address] [place] [address] Kadeem Leonard MD [address] [facility] [address] [place] [address] [email or web address] documented as of this encounter Visit Diagnoses Not on filedocumented in this encounter Care Teams It Intern Relationship Specialty Start Date End Date Kel Gardner MD [address] [place] [address] PCP - General Internal Medicine 08/23/23 documented as of this encounter Additional Source Comments The information contained in this document represents components of the legal health record. It is not the complete legal health record.[facility]
--- OUTSIDE RECORDS SUMMARY | 2025-04-16 10:47 | XMS_ITS | Continuity of Care Document ---
Author Name [facility], Medical Address [address] [place] [id number] Organization Unknown Address [address] [place] [id number] Medications No known medications Problems No known problems
--- OUTSIDE RECORDS SUMMARY | 2025-04-16 10:47 | XMS_ITS | Encounter Summary ---
Author Organization [facility] Address [address] [facility] [address] [place] [address] Encounters * CPT with Medical [facility] at [employer] on 2025-04-10 { reasonForRequest : right hip pain , patientReports : ,"denies :[ Worst Headache of life , New onset of vision loss , Sudden onset -unilateral weakness/gait disturbance , Fall with head strike and altered LOC", New onset of Slurred speech or difficulty finding words , Sudden Mental status ch anges , Head pain with fever chills and neck pain , Seizure activity ,"Head pain not relieved by medication greater than 8 hours , Head pain greater than 8 hours -unrelated to falls or injury , Head pain with nausea vomiting , Dizziness with positional change , Sensitive to light ], chiefComplaints : Extremity Pain , pmh : Chronic Back Pain, Depression, Anxiety Disorder , allergies : Lasix, Naprosyn, Prilosec, Sulfa (Sulfonamide Antibiotics), Levaquin, Soma, Difluni bradley , otherAllergies :null, painAssessment : , visitOutcome : , additionalComments : 1700 pt would like a visit on 04/10\n59 y.shabbir complains of Extremity Pain\nNurse from [facility] calling in referral for patient. Symptoms have been ongoing for the last week or two. Patient recently had back surgery done two weeks ago. Patient complaining of right hip pain, denies any numbness or tingling or swelling in right leg. Patient has been scooting herself around in a wheelchair during recovery and normally walks with a rolling walker. no injuries or falls reported.denies any chest pain, lightheadedness or shortness of breath. Has been taking oxycodone and Tylenol for the back surgery but states it is not doing anything for the pain in the hip. Nurse made MD office aware we have no xray capability and verbalized understanding. requesting [facility] visit for eval\nI provided information on the mobile health provider response time and advised the patient and/or caregiver to monitor reported signs and symptoms. I discussed the warning signs of when to seek emergency care. } Dispatch the home of a [id number] female patient complaining of groin pain. This pain is a six out of 10 pain that started last night at around 6 PM. Patient had back surgery two weeks ago and believes us to be related to that. Patient has had this pain before, but not as sharp or regular as itwas for the last six months. Patient has no noticeable neurological deficits. Patient has a strong fast pulse rate that that is regular. Patient is breathing well and her oxygen saturation is at 100% on room air. Patient skin iswarm and dry. She does not have any fever. Patient is eating and drinking as normal and been havingbowel movements and urination as normal. At this visit, patient had a full set of vitals taken and was assessed. Patient had a history takenon her back surgery and the pain associated with that. The [facility] was consulted and asked several questions about physical therapy. He also ordered 30 mg of IM Toradol to be given. IM Toradol was given and the patient didn???t have any adverse effects. Patient was told to contact your PCP in order to get a better pain management plan going. IV_(FLUIDS_AND/OR_MEDICATION), MEDICATION_IM, ORAL_MEDICATION, WOUND_CARE, ORTHOSTATIC_VITAL_SIGNS Written by Medical [facility] on 2025-04-10
--- OUTSIDE RECORDS SUMMARY | 2025-04-16 10:47 | XMS_ITS | Data Portability ---
Author Organization [facility] AWILDA [facility] PAIN OFF[facility] Address [address] [address] Care Team Providers Care Investigator Narcotics Name Role Phone CARLOS FRANCES Primary Care Provider Assessment Encounter Date Assessment [...] options. 1. I recommend a consultation at [facility] . 2. [...] By Organization Details Last Modified Time 12/03/2018 05965 She was advised against bed rest lasting longer than four days and to continue activities as tolerated. [email or web address] Not available 12/27/2018 15:32:28 Reason for Referral None Reported. Problems Name Problem SNOMED Code Status Onset Date Resolution Date Notes Provider Name and Address Organization Details Recorded Time Complex regional pain syndrome type I 490733677 Active Tamika vogel MD [address] , [address], [place], [address], [place] [facility] 9 11:14:29 Pain in right foot 736571223001559 Active Tamika vogel MD [address] , [address], [place], [address], [place] - [facility] 9 11:14:40 Lumbar post-lami nectomy syndrome 623013268 Active Tamika vogel MD [address] , [address], [place], [address], [place] - [facility] 9 [...] Name and Address Organization Details Recorded Time 69709 Soma medicatio n hives Not available Not available 12/03/201868423 2 RxNorm Naima garcia [place] - [facility] 9 11:16:22 23252 naproxen medicatio n hives Not available Not available 12/03/2018 7258 RxNorm Naima garcia, [place] - [facility] 9 11:16:43 03873 Substance with sulfonami de structure and antibacte rial mechanism of action (substanc e) medicatio n hives Not available Not available 12/03/2018 78066 8003 SNOMED Naima garcia [place] - [facility] 9 11:17:11 55835 Prilosec medicatio n hives Not available Not available 12/03/201894448 5 RxNorm Naima Fam jose, [place] - [facility] 9 11:17:26 [...] Body mass index (BMI) Body weight Systolic And Diastolic Provider Name and Address Organization Details Last Updated DateTime 9 76 /min 97 % 97 % 157.48 cm 31.1 kg/m2 66220.7 g 143/93 mm[Hg] Naima Ireland [facility] 9 11:11:27 Social History Question Answer Notes LastModified by Organizat ion Details LastModified Time Tobacco Smoking Status Never Smoker Not Available [facility] 04/17/2020 03:16:10 Which Illicit Or Recreational Drugs Have You Used? No [id number] Information not available 04/17/2020 Education 12 With Some College [email or web address] Information not available 12/03/2018 Live Alone Or With Others? Alone Information not available 12/03/2018 Marital Status [email or web address] Informatio n not available 12/03/2018 What Was The Date Of Your Most Recent Tobacco Screening? 12/27/2018 [id number] Information not available 04/17/2020 Sex: Unknown Functional Status Question Answer Note LastModified by Organization D etails LastModified Time What is your level of alcohol consumption? None [id number] Information not available 04/17/2020 Are you currently employed? No [id number] Information not available 04/17/2020 What is your occupation? Disabled Information not available 12/03/2018 Mental Status None recorded. Family History Relationship [...] Diagnosis SNOMED-CT Code Diagnosis ICD10 Code Diagnosis IMO Codes Diagnosis Note 40722 Tamika Bess MD PAIN OFFICE [address] [place] [address] [place] [address] 12/03/2018 11:08:46 12/28/2018 09:05:28 Complex regional pain syndrome type I 527146951 G90.50 Pain in right foot 32662 47385 58219 M79.671 Lumbar post-laminectomy syndrome 042657683 M96.1 Health Concerns Section Related Observation LastModified by Organization Detai ls LastModified Time None Recorded Concern Status LastModified by Organization Details LastModified Time None Recorded Advance Directives Directive None Recorded Payers Insurance Date Sequence Insurance Name Policy Number Policy Ibrahim Covered Member ID Ibrahim Member ID Guarantor Name 12/28/2018 1 [facility] - DOS PRIOR TO 2022 - DUAL ELIGIBLE (MEDICARE REPLACEMENT/AD VANTAGE - HMO) Ellen Pompa [id number] Ellen Pompa Notes Date Note Type Note Provider Name and Address Organization Details Recorded Time 12/03/2018 text/html Ellen Pompa is a 53 year old [...] and is followed by Dr. Upton with [facility] and has received Hyaluronic acid injections [...] all 3 phases . Tamika Bess MD [address] [facility] , [address], [place], [address], [facility] 12/28/2018 10:38:35 OBGyn Episode No OBEpisode recorded.
--- OUTSIDE RECORDS SUMMARY | 2025-04-16 10:47 | XMS_ITS | Encounter Summary ---
Author Organization [facility] Address [address] [facility] [address] [place] [address] Phone Care Team Providers Care Clay Hoister Name Role Phone Kel Gardner MD Primary Care Provider [phone] Kel Gardner MD Primary Care Provider [phone]- [phone] Encounter Details Date Type Department Care Team (Late Contact Info) Description 03/28/2018 Procedure Pass [facility] Imaging [address] [place] [address] Social History Tobacco Use Types Packs/Day Years [...] Encounters Date Type Department Care Team (Late Contact Info) Description 07/10/2025 2:45 PM EST Office Visit [facility] Orthopedics Spine [address], [address] [place] [address] Kadeem Leonard MD [address] [address] [email or web address] documented as of this encounter Visit Diagnoses Not on filedocumented in this encounter Care Teams Clay Hoister Relationship Specialty Start Date End Date Kel Gardner MD [facility] [place] [address] PCP - General Internal Medicine 01/17/17 08/22/23 Kel Gardner MD [facility] [place] [address] PCP - General Internal Medicine 08/23/23 documented as of this encounter Additional Source Comments The information contained in this document represents components of the legal health record. It is not the complete legal health record.[facility]
--- OUTSIDE RECORDS SUMMARY | 2025-04-16 10:47 | XMS_ITS | Clinical Summary ---
Author Organization [address] [facility] Address [address] [place] [address] Phone Care Team Providers Care Retail Marketing Specialist Name Role Phone Kel Gardner MD Primary Care Provider [phone] Allergies Active Allergy Reactions Criticality Noted Date [...] given by office for timing. 2 Active cholecalciferol (VITAMIN D-3) 25 mcg (1,000 unit) tablet [...] 1 (one) time each day. 8 Active lidocaine-prilo waylon (EMLA) 2.5-2.5 % cream Apply to feet [...] by mouth at bedtime as needed. Active Hospital, Clinic, or Other Facility Administered Medication Ordered Dose Route Frequency Start Date End Date Status sodium hyaluronate (viscosup) intra-articular injection 10 mgIndications:Chroni c pain of left knee 10 mg IAtc Once PRN Procedure 03/24/2025 03/24/2025 Ended Active Problems Problem Noted Date Diagnosed Date Snoring 10/29/2021 Overview (05/08/2024): 10/2021 Home Sleep Study did not reveal sleep apnea or nocturnal hypoxia. Urinary retention 07/20/2019 Overview (05/08/2024): [facility]; has required self-catheterization in the past Vitamin D deficiency 12/13/2018 Urinary incontinence 03/31/2018 Complex regional pain syndrome of lower extremit y 02/28/2018 Overview (05/08/2024): [facility] ASCUS with positive high risk HPV cervical 07/20 Overview (05/08/2024): [facility] 07/20/2016 Neuropathy 12/28/2015 Overview (05/08/2024): Dr Ascencio Venous insufficiency 12/20/2015 Chronic pain in right foot 10/28/2015 Overview (05/08/2024): Dr Molina Chronic urticaria 10/28/2015 Insomnia 10/28/2015 Obesity 10/28/2015 Exotropia of left eye 04/20/2010 Anxiety 01/08/2010 Overview (05/08/2024): [facility] Chronic low back pain 03/06/2006 Overview (05/08/2024): lumbar fusion 08/06, annular tear L4 L5. New left L4 nerve root compression 05/15 Mitral regurgitation 03/06/2006 Overview (05/08/2024): Echo 2012: mild to mod MR. Still mild to mod on echo 05/19. 10/22: mild Encounters Date Type Department Care Team Description 03/24/2025 1:00 PM EDT Office Visit Orthopedic [facility] [address] [address] Radha Burns MD Chronic pain of left knee (Primary Dx) 03/13/2025 2:45 PM EDT Office Visit Orthopedic Surgery [facility] 160 [address] [facility] [address] [address] Radha Burns MD Chronic pain of left knee (Primary Dx) 03/06/2025 2:45 PM EDT Office Visit Orthopedic Surgery [facility] [address] [address] Radha Burns MD Chronic pain of left knee (Primary Dx) 01/29/2025 Telephone Orthopedic Surgery [facility] [address] [address] Carline Weiss ID 01/21/2025 11:00 AM EDT Consult Orthopedic Surgery [facility] 160 175 [facility] [address] [place] [phone] Radha Burns MD Chronic pain of left knee (Primary Dx) 01/20/2025 10:15 AM EDT Office Visit Orthopedic Surgery [facility] 250 175 [facility] [address] [place] [phone] Zenon Nolan DPM Neuritis (Primary Dx); Acquired hammer toe of right foot; Hammer toe of left foot; Acquired hallux valgus of right foot; Acquired hallux valgus of left foot from Last 3 Months Immunizations Immunization Administration Dates Next Due Td, Unspecified 02/14/2002 Tdap Tetanus diptheria acell ular pertussis (Boostrix; Adacel) 7yo and older 03/02/2011 Surgical History Surgery Date Site/Laterality Comments LUMBAR LAMINECTOMY 08/06 PROCEDURE: HISTORICAL LUMB LAMINECTOMY; COMMENT: fusion L4L5 BUNIONECTOMY PROCEDURE: OR CORRJ HLX VLGS BNCTY SESMDC W/DOUBLE OSTEOTOMY FOOT SURGERY PROCEDURE: HISTORICAL FOOT SURGERY; COMMENT: tarsometatarsal fusion with gastrocnemius recession EYE SURGERY mid PROCEDURE: HISTORICAL EYE SURGERY; COMMENT: strabismus surgery OTHER SURGICAL HISTORY Right PROCEDURE: ---- OTHER ----; COMMENT: ELVT R leg vein OTHER SURGICAL HISTORY PROCEDURE: OR RADIAL KERATOTOMY BACK SURGERY 05/02/16 PROCEDURE: HISTORICAL [...] - - Weight 65.8 kg (145 lb) 03/24/2025 12:58 PM EDT Height 157.5 cm (5' 2.01 ) 03/24/2025 12:58 PM E DT Body Mass Index 26.51 03/24/2025 12:58 PM EDT Plan of Treatment Upcoming Encounters Date Type Department Care Team (Late st Contact Info) Description 07/23/2025 10:30 AM EST Office Visit [facility] [place] [address] [phone] Zenon Nolan, DPM [address] [phone] 09/23/2025 11:45 AM EDT Office Visit [facility] [place] 160 175 [facility] [address] [place] [phone] Radha Burns MD 175 [facility] 160 [place] [address] Health Maintenance Due Date Last Done Comments Hepatitis A Vaccines (1 of 2 - Risk 2-dose series) 1983 Pneumococcal Vaccine: 50+ Years (1 of 1 - PCV) 2014 RSV Immunization Adult Patients (1 - Risk 50-74 years 1-dose series) 2014 Zoster Vaccines (1 of 2) 2014 Cervical Cancer Screening: Pap Smear 11/20/2020 11/20/2017, 11/20/2017, 11/20/2017 DTaP,Tdap,and Td Vaccines (4 - Td or Tdap) 03/02/2021 03/02/2011, 09/20/2009, 02/14/2002 Colorectal Cancer Screening: Stool Based Tests (FOBT/FIT) 06/05/2022 HIV Screening 06/05/2022 Social Influencers of Health Screening 06/05/2022 Hepatitis B Vaccines (1 of 3 - Risk 3-dose series) 2024 Depression Screening 07/03/2024 Breast Cancer Screening 08/15/2024 08/15/19 23, 08/12/2021, 05/24/2017, Additional history exists COVID-19 Vaccine ( - season) 2025 Influenza Vaccine (#1) 2025 Cholesterol Screening (Lipid Panel) 09/20/2026 09/20/2021 Hepatitis [...] age to complete this topic Meningococcal B Vaccine Aged Out No l onger eligible based on patient's age to complete this topic RSV Immunization Patients Under 20 months Aged Out No longer eligible based on patient's age to complete this topic Varicella Vaccines Aged Out No longer eligible based on patient's age to complete this topic Procedures Procedure Name Priority Date/Time Associated Diagnosis Comments OR ARTHROCENTESIS/ASPI RATION/INJECTION MAJOR JOINT/BURSA W/O U/S GUIDANCE Routine 03/24/2025 1:00 PM EDT Chronic pain of left knee OR ARTHROCENTESIS/ASPI RATION/INJECTION MAJOR JOINT/BURSA W/O U/S GUIDANCE Routine 03/13/2025 2:45 PM EDT Chronic pain of left knee OR ARTHROCENTESIS/ASPI RATION/INJECTION MAJOR JOINT/BURSA W/O U/S GUIDANCE Routine 03/06/2025 2:45 PM EDT Chronic pain of left knee MR KNEE WO CONTRAST LEFT Routine 01/27/2025 10:34 AM EDT XR KNEE 3 VIEWS LEFT Routine 01/21/2025 11:21 AM EDT Chronic pain of left knee KENZIE SCREENING DIGITAL Routine 08/15/2022 5:04 PM EST Encounter for screening mammogram for malignant neoplasm of breast LIPID PANEL Routine 09/20/2021 PAP SMEAR Routine 11/20/2017 HM HEPATITIS C SCREENING Routine 02/25/2011 from Last 3 Months or Most Recently Relevant to Health Maintenance Results * OR ARTHROCENTESIS/ASPIRATION/INJECTION MAJOR JOINT/BURSA W/O U/S GUIDANCE (03/24/2025 1:00 PM EDT) Narrative Radha Burns MD - 03/24/2025 1:00 PM EDT Radha Burns MD 03/24/2025 1:27 PM L Inj/Asp: L knee Indications: pain Details: 22 G needle, anterolateral approach Medications: 10 mg sodium hyaluronate (viscosup) 10 mg/mL(mw 2.4 -3.6 million) Outcome: tolerated well, no immediate complications Informed Consent: Laterality: Left Relevant images/test results available and reviewed: yes Health status cleared: Yes Procedure/treatment, purpose, treatment alternatives, risks/potential complications and benefits explained: yes Risk/complications/benefits details: Risks include bleeding, infection, increase in pain Patient questions answered: yes Patient agrees, verbalizes understanding, and wants to proceed: yes Consent given by: Patient Informed consent discussion completed by Physician/TERE with patient: Verbal Pre-procedure timeout performed: yes us Radha Burns MD IN CLINIC/BEDSIDE ORDERABLES F inal Result * OR ARTHROCENTESIS/ASPIRATION/INJECTION MAJOR JOINT/BURSA W/O U/S GUIDANCE (03/13/2025 2:45 PM EDT) Radha Bonilla MD - 03/13/2025 2:45 PM EDT Radha Burns MD 03/13/2025 3:53 PM L Inj/Asp: L knee Indications: pain Details: 22 G needle, anterolateral approach Medications: 10 mg sodium hyaluronate (viscosup) 10 mg/mL(mw 2.4 -3.6 million) Outcome: tolerated well, no immediate complications Informed Consent: Laterality: Left Relevant images/test results available and reviewed: yes Health status cleared: Yes Procedure/treatment, purpose, treatment alternatives, risks/potential complications and benefits explained: yes Risk/complications/benefits details: Risks include bleeding, infection, increase in pain Patient questions answered: yes Patient agrees, verbalizes understanding, and wants to proceed: yes Consent given by: Patient Informed consent discussion completed by Physician/TERE with patient: Verbal Pre-procedure timeout performed: yes us Radha Burns MD IN CLINIC/BEDSIDE ORDERABLES F inal Result * OR ARTHROCENTESIS/ASPIRATION/INJECTION MAJOR JOINT/BURSA W/O U/S GUIDANCE (03/06/2025 2:45 PM EDT) Radha Bonilla MD - 03/06/2025 2:45 PM EDT Radha Burns MD 03/06/2025 4:21 PM L Inj/Asp: L knee Indications: pain Details: 22 G needle, anterolateral approach Medications: 10 mg sodium hyaluronate (viscosup) 10 mg/mL(mw 2.4 -3.6 million) Outcome: tolerated well, no immediate complications Informed Consent: Laterality: Left Relevant images/test results available and reviewed: yes Health status cleared: Yes Procedure/treatment, purpose, treatment alternatives, risks/potential complications and benefits explained: yes Risk/complications/benefits details: Include bleeding, infection, increasing pain Patient questions answered: yes Patient agrees, verbalizes understanding, and wants to proceed: yes Consent given by: Patient Informed consent discussion completed by Physician/TERE with patient: Verbal Pre-procedure timeout performed: yes Radha Burns MD IN CLINIC/BEDSIDE ORDERABLES F inal Result * MR Knee wo Contrast Left (01/27/2025 10:34 AM EDT) Anatomical Region Laterality Modality Lower Extremities, Knee Left Magnetic Resonance Historical Provider MD FERRER MRI PROCEDURES Final Result * XR Knee 3 Views Left (01/21/2025 11:21 AM EDT) Anatomical Region Laterality Modality Lower Extremities, Knee Left Computed Radiography 01/21/2025 7:10 PM EDT Impressions 01/21/2025 7:11 PM EDT No acute fracture or dislocation of the left knee. -------- FINAL REPORT -------- Dictated By: Charlotte Riley Dictated Date: 01/21/2025 19:10 ET Assigned Physician: Charlotte Riley Reviewed and Electronically Signed By: Charlotte Riley Signed Date: 01/21/2025 19:11 ET Workstation ID: [id number] Transcribed By: Self Edit Transcribed Date: 01/21/2025 19:10 ET Narrative 01/21/2025 7:11 PM EDT HISTORY: Knee pain, initial exam TECHNIQUE: 3 views of the left knee COMPARISON: None FINDINGS: No acute fracture or dislocation is seen. There is no joint effusion present. The medial and lateral joint spaces appear normal. Soft tissues are unremarkable. Procedure Note Charlotte Riley MD - 01/21/2025 HISTORY: Knee pain, initial exam TECHNIQUE: 3 views of the left knee COMPARISON: None FINDINGS: No acute fracture or dislocation is seen. There is no joint effusionpresent. The medial and lateral joint spaces appear normal. Soft tissuesare unremarkable. IMPRESSION: No acute fracture or dislocation of the left knee. -------- FINAL REPORT -------- Dictated By: Charlotte Riley Dictated Date: 01/21/2025 19:10 ET Assigned Physician: Charlotte Riley Reviewed and Electronically Signed By: Charlotte Riley Signed Date: 01/21/2025 19:11 ET Workstation ID: [id number] Transcribed By: Self Edit Transcribed Date: 01/21/2025 19:10 ET us Radha Burns MD IMG XR PROCEDURES Final Result * KENZIE SCREENING DIGITAL (08/15/2022 5:04 PM EST) Anatomical Region Laterality Modality Mammography 08/15/2022 10:5 3 AM EST Narrative 08/15/2022 5:04 PM EST [facility] Diagnostic Imaging Department [address] [place] [address] Patient: TONEYMERIELLENBLAYNE Mcclendon/Age/Sex: 1965 - 57 - F Unit#: [id number] Location/Status: SPDIMAM/REG CLI Mnemonic/Ordering Site: [facility] Ordering Physician: KEL GARDNER MD Kenzie Screening Digital - 08/15/22 - 1137 INDICATION: SCREENING COMPARISON: [facility] and outside mammograms dating back to 04/03/2016 TECHNIQUE: CC and MLO views of the breasts were obtained, using full field digital mammography with 3D tomosynthesis views in the MLO projection. XCCL view of the right breast was obtained. Computer aided detection with the [employer] 7.2-H was employed. FINDINGS: The breasts contain scattered fibroglandular tissues. No suspicious masses, suspicious microcalcifications, or areas of architectural distortion are identified. There are no secondary signs of breast malignancy. IMPRESSION: No specific mammographic evidence of breast malignancy. Lack of an imaging correlate should not deter or delay biopsy of a clinically significant palpable finding. BI-RADS - Category 1: Negative 3341F, 7025F Annual screening mammography is recommended. Patient entered into a reminder system with a target date for the next mammogram. [id number] [id number]) , [id number] Dictating Physician: FRANCISCO GUERRERO MD Electronically Signed by: FRANCISCO GUERRERO MD Dic Date/Time: 08/15/221700 Sign date/Time: 08/15/221703 Procedure Note Francisco Guerrero MD - 08/04/2023 [facility] Diagnostic Imaging Department [address] [place] [address] Patient: ELLEN POMPA Pito Cespedes/Age/Sex: 1965 - 57 - F Unit#: [id number] Location/Status: [facility] CLI Mnemonic/Ordering Site: [facility] Ordering Physician: KEL GARDNER MD Kenzie Screening Digital - 08/15/22 - 1137 INDICATION: SCREENING COMPARISON: [facility] and outside mammograms dating back to 04/03/2016 TECHNIQUE: CC and MLO views of the breasts were obtained, using full field digital mammography with 3D tomosynthesis views in the MLO projection. XCCL viewof the right breast was obtained. Computer aided detection with the [employer] 7.2-H was employed. FINDINGS: The breasts contain [...] date for the next mammogram. (G0202 / [id number]) , [id number] Dictating Physician: FRANCISCO GUERRERO MD Electronically Signed by: FRANCISCO GUERRERO MD Dic Date/Time: 08/15/221700 Sign date/Time: 08/15/221703 Kel Gardner MD IMG BI PROCEDURES Final Result * [...] RESULTING AGENCY - 11/29/2017 8:05 AM EDT [id number] THINPREP PAP, IMAGED: ATYPICAL SQUAMOUS CELLS OF UNDETERMINED SIGNIFICANCE (ASCUS) . RESULT OF APTIMA HIGH RISK HPV ASSAY: NEGATIVE (SEROTYPES 16,18,31,33,35,39,45,51,52,56,58,59,66,68) STEPHON RODRIGUEZ(ASCP) (CASE SCREENED 11 22 2017) SHARMAINE PRINCE M.D., PATHOLOGIST (CASE ELECTRONICALLY SIGNED 11 28 2017) ADEQUACY: SATISFACTORY. ENDOCERVICAL/TRANSFORMATION ZONE COMPONENT PRESENT. SOURCE: THINPREP PAP HPV ANY DX: REFLEX 16 AND 18, CERVICAL, IMAGED: CLINICAL INFORMATION: HPV ANY DIAGNOSIS. Z12.4, Z01.419, HORMONES, PAP HX: ASCUS HPV POSITIVE 2016 Ellen Giles DO LAB CYTOLOGY ORDERABLES Final Result HISTORICAL TESTING LAB RESULTING AGENCY * Hepatitis C Screening (02/25/2011) Hepatitis C Screening Abstracted Historical Provider HEALTH MAINTENANCE Final Result from Last 3 Months or Most Recently Relevant to Health Maintenance Insurance Member Subscriber Plan / Payer (Ef fective 2018-Present) Name:ELLEN POMPA Relation to Subscriber:Self Name:Ellen Pompa Payer ID:[id number] Group ID:[id number] Type:Not on file Address: [address] [address] Care Teams Retail Marketing Specialist Relationship Specialty Start Date End Date Kel Gardner MD [address] [place] [address] PCP - General Internal Medicine 10/04/17
--- OUTSIDE RECORDS SUMMARY | 2025-04-16 10:47 | XMS_ITS | Encounter Summary ---
Author Organization [facility] Address [address] [facility] [address] [place] [address] Phone Care Team Providers Care Electrical Hardware Engineer Name Role Phone Kel Gardner MD Primary Care Provider [phone] Encounter Details Date Type Department Care Team ([facility] st Contact Info) Description 03/25/2025 Procedure Pass [facility] PERIOPERATIVE DEPT [address] [place] [id number] Social History Tobacco Use Types Packs/Day Years Used Date Smoking Tobacco: Never Smokeless Tobacco: Never Alcohol Use Standard Drinks/Week Comments Never 0 (1 standard drink = 0.6 oz pur e alcohol) Education Answer Date Recorded Are you interested in more education? Not on tammy e 10/28/2022 Are you concerned about learning? Not on file 10/28/2022 No 10/28/2022 No 10/28/2022 Food Answer Date Recorded Within the past 6 months we worried whether our food would run out before we got money to buy more. Never True 03/25/2025 Within the past 6 months the food we bought just didn't last and we didn't have enough money to get more. Never True Residential Stability Answer Date Recor ded What is your housing situation today? I have carl sing 03/25/2025 How many times have you move d in the past 12 months? Zero (I did not move) 03/25/2025 Paying for Meds Answer Date Recorded Do you have trouble paying for medicines? No 03/25/2025 Paying Utility Bills Answer Date Record ed Do you have trouble paying your heating or elect ricity bill? No 03/25/2025 Transportation Answer Date Recorded Has the lack of transportati on kept you from medical appointments or from getting medications? No 03/25/2025 Digital Access Answer Date Recorded No 03/25/2025 Yes 03/25/2025 Do you have reliable internet access at home? Ye s 03/25/2025 Do you have a device (e.g., phone, tablet, computer) with a working camera? Yes 03/25/2025 Intimate Partner Violence Answer Date R ecorded Are you denied basic needs s uch as food, clothing, or medical care? No 03/25/2025 In the past 12 months have y ou been in a relationship with a person who hurts, threatens, or tries to control you? No 03/25/2025 Are you denied basic needs s uch as food, clothing, or medical care? No 03/25/2025 In the past 12 months have y ou been in a relationship with a person who hurts, threatens, or tries to control you? No 03/25/2025 Comments No Sex and Gender Information Value Date Recorded Sex Assigned at Female 08/23/2023 8:46 AM EST Legal Sex Female 11:17 AM EDT Gender Identity Female 08/23/2023 8:46 AM EST Sexual Orientation Straight 08/23/2023 8: 46 AM EST documented as of this encounter Functional Status * Calculated C-SSRS Risk Score (Lifetime/Recent) Answer Date of Assessment Author No Risk Indicated 03/25/2025 9:00 PM EDT Anali Sarkar RN * Lucas Suicide Severity Rating Scale (Screener/Recent Self-Report) Question Answer Date of Assessment Author 1. Wish to be (Past 1 Month) No 025 9:00 PM Anali Magallanes, ZARIA 2. Non-Specific Active Suici yuniel Thoughts (Past 1 Month) No 03/25/2025 9:00 PM MARTHAT Leticia Sarkar, ZARIA 6. Suicidal Behavior (Lifetime) No 9:00 PM Anali Magallanes, ZARIA documented as of this encounter Plan of Treatment Upcoming Encounters Date Type Department Care Team (Late st Contact Info) Description 07/10/2025 2:45 PM EST Office Visit [facility] Orthopedics Spine [address] [facility], [address] [place] [address] Kadeem Leonard MD 55 [facility] [address] [place] [address] [email or web address] documented as of this encounter Visit Diagnoses Not on filedocumented in this encounter Care Teams Electrical Hardware Engineer Relationship Specialty Start Date End Date Kel Gardner MD [address] [place] [address] PCP - General Internal Medicine 08/23/23 documented as of this encounter Additional Source Comments The information contained in this document represents components of the legal health record. It is not the complete legal health record.[facility]
--- OUTSIDE RECORDS SUMMARY | 2025-04-16 10:47 | XMS_ITS | Encounter Summary ---
Author Organization [facility] Address [address] [place] [address] Phone Care Team Providers Care Stock Sorter Name Role Phone Kel Gardner MD Primary Care Provider [phone]- [phone] Encounter Details Date Type Department Care Team ([facility] st Contact Info) Description 03/18/2025 Orders Only [facility] Orthopaedic Spine [address] [facility], 3rd Floor, [address] [place] [address] Gabriela Bell PA-C [address] [place] [address] [email or web address] Social History Tobacco Use Types Packs/Day Years [...] a working camera? Not on file Comments No Sex and Gender Information Value [...] Description 07/10/2025 2:45 PM EST Office Visit [facility] Orthopedics Spine [address] [facility], [address] [place] [address] Kadeem Leonard MD 55 [facility] [address] [place] [address] [email or web address] documented as of this encounter Visit Diagnoses Not on filedocumented in this encounter Care Teams Stock Sorter Relationship Specialty Start Date End Date Kel Gardner MD [address] [place] [address] PCP - General Internal Medicine 08/23/23 documented as of this encounter Additional Source Comments The information contained in this document represents components of the legal health record. It is not the complete legal health record.[facility]
--- OUTSIDE RECORDS SUMMARY | 2025-04-16 10:47 | XMS_ITS | Encounter Summary ---
Author Organization [facility] Address [address] [place] [address] Care Team Providers Care Head Of Ict Name Role Phone Kel Gardner MD Primary Care Provider [phone] Encounter Details Date Type Department Care Team (Late Contact Info) Description 11/19/2024 Lab Requisition [facility] - Main Lab [address] [facility] [place] [address] Demetria Velasco MD [address] [address] Dysuria Social History Tobacco Use Types Packs/Day [...] Department Care Team (Late Contact Info) Description 07/23/2025 10:30 AM EST Office Visit Orthopedic [facility] [address] [facility] [address] [place] [address] Zenon Nolan, DPM [address] [facility] [address] [place] [address] 09/23/2025 11:45 AM EDT Office Visit [facility] [address] [facility] [address] [place] [id number] Radha Burns MD 175 [facility] [address] [place] [address] documented as of this encounter Procedures Procedure Name Priority Date/Time Associated Diagnosis Comments BACTERIAL IDENTIFICATION AND SUSCEPTIBILITY, AEROBIC Routine 11/18/2024 12:00 AM EDT Dysuria documented in this encounter Results * (ABNORMAL) Bacterial identification and susceptibility, aerobic (11/18/2024 12:00 AM EDT) Culture, Bacterial ID and Sensitivity Escherichia coli(A) MANUEL 11/20/2024 7:55 AM EDT [facility] Other Urine specimen from urethra / Unknown 11/18/2024 11/19/2024 9:38 AM EDT Narrative Organism Antibiotic Method Susceptibility Escherichia coli [...] MICROBIOLOGY - G ENERAL ORDERABLES Final Result [facility] H[facility]PITAL LAB [address] [place] [address], documented in this encounter Visit Diagnoses Diagnosis Dysuria documented in this encounter Care Teams Head Of Ict Relationship Specialty Start Date End Date Kel Gardner MD [address] [place] [address] PCP - General Internal Medicine 10/04/17 documented as of this encounter
--- OUTSIDE RECORDS SUMMARY | 2025-04-16 10:47 | XMS_ITS | Patient Health Record ---
[facility] Address [address] [place] [address] Care Team Providers Care Saw Offbearer Name Role Phone Kel Gardner MD Primary Care Provider Unavail able Black, Carole Unavailable [phone] Allergies Allergen (clinical drug ingredient) Drug/Non Drug [...] MG 1 capsule Orally Onc e a day; Duration: 30 day(s) Active oxyCODONE HCl Active MiraLax [...] Problem Acquired hammer toe of right foot (4857292341015 105) Other hammer toe(s) (acquired), right foot (M20.41) Active confirmed Problem Acquired hallux valgus (74115428) Hallux valgus (acquired), left foot (M20.12) Active confirmed Problem Acquired hammer toe of left foot (1977292791195 103) Other hammer toe(s) (acquired), left foot (M20.42) Active confirmed Problem Complex regional pain syndrome type I of right lower limb (disorder) (0783494950775 09) Complex regional pain syndrome type 1 of right lower extremity (G90.521) Active confirmed Plan Of Treatment No Information Insurance Providers Payer Name Payer Address Payer Phone Subscriber Number Group Number Insured Name Patient Relationship to Insured Coverage Start Date Coverage End Date [facility] [employer] Claims [address] [place]ae[place] [id number] Ellen Pompa Self - patient is the insured Medical (General) History Medical History History ICD Code Anxiety Arthritis Back,Hip,and Knee pain Depression Gallstones Headaches/Migraines Multiple sclerosis Poor circulation Sciatica Joint implants/screws Venous insufficiency nerve disorder bladder issues misalignment of eyes leaky mitral heart valve Surgical History Surgery Date(Month/Year) back surgery 2004, 04/17, 05/18 foot surgery 2013, 2015, 2016
--- OUTSIDE RECORDS SUMMARY | 2025-04-16 10:47 | XMS_ITS | Encounter Summary ---
Author Organization [facility] Address [address] [place] [address] Care Team Providers Care Rn Case Manager Hospice Name Role Phone Kel Gardner MD Primary Care Provider [phone] Encounter Details Date Type Department Care Team (Late st Contact Info) Description 08/16/2024 Lab Requisition [facility] - Main Lab 299 [facility] [place] [address] Demetria Velasco MD 36[address] [facility] [address] [place] [address] Other abnormal findings in urine Social History [...] 07/23/2025 10:30 AM EST Office Visit Orthopedic [facility] [address] [facility] [address] [place] [address] Zenon Nolan, DPM 175 [facility] [address] [place] [address] 09/23/2025 11:45 AM EDT Office Visit [facility] [address] [facility] 160 [place] [address] Radha Burns MD 175 [facility] [address] [place] [address] documented as of this encounter Procedures Procedure Name Priority Date/Time Associated Diagnosis Comments BACTERIAL IDENTIFICATION AND SUSCEPTIBILITY, AEROBIC Routine 08/15/2024 12:00 AM EST Other abnormal findings in urine documented in this encounter Results * (ABNORMAL) Bacterial identification and susceptibility, aerobic (08/15/2024 12:00 AM EST) Culture, Bacterial ID and Sensitivity Escherichia coli(A) MANUEL 08/17/2024 8:33 AM EST [facility] Comment: This is an [...] Escherichia coli Trimethoprim/Sulfamethoxazole MANUEL <=20 ug/ml: Susceptible Demetria Velasco MD LAB MICROBIOLOGY - G ENERAL ORDERABLES Final Result [facility] [address] [place] [address], documented in this encounter Visit Diagnoses Diagnosis Other abnormal findings in urine documented in this encounter Care Teams Rn Case Manager Hospice Relationship Specialty Start Date End Date Kel Gardner MD [facility] [place] [address] PCP - General Internal Medicine 10/04/17 documented as of this encounter
--- OUTSIDE RECORDS SUMMARY | 2025-04-16 10:47 | XMS_ITS | Encounter Summary ---
Author Organization [facility] Address [address] [facility] [address] [place] [address] Phone Care Team Providers Care Car Supervisor Name Role Phone Kel Gardner MD Primary Care Provider [phone] Kel Gardner MD Primary Care Provider [phone] Encounter Details Date Type Department Care Team (Late Contact Info) Description 03/28/2018 Procedure Pass [facility] [address] [place] [address] Social History Tobacco Use Types Packs/Day Years [...] Description 07/10/2025 2:45 PM EST Office Visit [facility] Orthopedics Spine [address] [facility], [address] [place] [address] Kadeem Leonard MD [address] [address] [email or web address] documented as of this encounter Visit Diagnoses Not on filedocumented in this encounter Care Teams Car Supervisor Relationship Specialty Start Date End Date Kel Gardner MD [facility] [place] [address] PCP - General Internal Medicine 01/17/17 08/22/23 Kel Gardner MD [facility] [place] [address] PCP - General Internal Medicine 08/23/23 documented as of this encounter Additional Source Comments The information contained in this document represents components of the legal health record. It is not the complete legal health record.[facility]
--- OUTSIDE RECORDS SUMMARY | 2025-04-16 10:48 | XMS_ITS | Data Portability ---
Author Organization [facility], [facility] Address [address] [place] [address] Care Team Providers Care Data Entry Processor Name Role Phone JUAN DANIELMATTHEW PARKERNCER Referring Provider [phone] HIM CCA OTHER Assessment Encounter Date Assessment Date Assessment LastModified by Organization Details LastModified Time 03/14/2023 03/14/2023 I provided real -time medical direction via phone for this encounter, and was available for additional phone based assistance as needed. I have reviewed and agree with the Assessment and Plan as documented by the Sql Report Developer. Patient given the opportunity to ask questions. 57 yo wheelchair bound p/w right foot swelling x3 weeks and atraumatic blue discoloration and bruising . No changes in sensation, no change in pain (takes baseline percocet), or change in perfusion. Of note pt presented to ED yesterday but left 2/2 long wait time. Overall unclear mixer driver; DVT is certainly possible though unlikely to cause ecchymoses (which both quiller tender and I have difficulty appreciating). Discussed risk with pt, who declined to present to ED, and agreed she would reach out to PCP to discuss ultrasound or other imaging. In interim can take additional 500mg acetaminophen when she takes baseline percocet. Reviewed warning signs/sx. csocolovsky Not available 04/09/2023 23:03:03 04/10/2025 04/10/2025 As noted, we wer e called to see this patient for evaluation of right hip and groin pain following recent lumbar spine surgery. The medic performed the in-person evaluation and I provided remote direction. The patient was alert, afebrile, and hemodynamically stable. She reported moderate, persistent right groin pain without associated numbness, weakness, or swelling. Exam showed normal distal strength and sensation, no deformity, and intact pulses. Vitals were reassuring, and she remained ambulatory with assistance. Findings are most consistent with post-surgical referred pain or muscular strain from altered biomechanics during recovery, without evidence of infection, DVT, or acute orthopedic complication. Impression: Right hip/groin pain, likely musculoskeletal or post-surgical referred pain; no red flags for fracture, infection, or neurologic involvement. Plan: Administered Toradol 30 mg IM for pain control Encourage scheduled acetaminophen as adjunct Continue to use walker for mobility and avoid excessive strain during recovery Apply heat or gentle stretching as tolerated Contact spine surgeon or PCP for follow-up and review of pain management plan Primary care, consider postoperative evaluation to ensure no sacroiliac or radicular component to the pain and to reassess pain control regimen. We discussed the diagnostic uncertainty of home visits and the risks involved. In this case, the patient and I felt this to be an acceptable and reasonable amount of risk given the benefit of avoiding an ED visit. Red flags were reviewed, and the patient was advised to seek urgent care for worsening pain, fever, new weakness, or loss of bladder or bowel control. Not available 04/10/2025 18:38:40 Plan of Treatment Reminders Order Date Submit Date Provider Last Modified By Organization Details Last Modified Time Details Appointments None recorded. Lab None recorded. Referral None recorded. Procedures None recorded. Surgeries None recorded. Imaging None recorded. Medication Orders ketorolac 30 mg/mL injection solution 2024 025 [email or web address] [id number] [id number], [address] [place] [address], [address], 09:55:40 Patient TargetsNo targets recorded. Patient InstructionsNo instructions recorded. Reason for Referral None Reported. Medical Equipment None Reported. Allergies Allergen ID Allergen Name Allergen Category Reaction Reaction Severity Criticality Documentation Date Start Date Code Code System Note Provider Name and Address Organization Details Recorded Time Lasix medicatio n Not available Not available Not available 04/09/2025 1 RxNorm Not Available [facility] - production 14:31:11 36010 Naprosyn medicatio n Not available Not available Not available 04/09/2025 2 RxNorm Not Available [facility] - production 14:31:11 60234 Prilosec medicatio n Not available Not available Not available 04/09/202575895 5 RxNorm Not Available [facility] - production 14:31:11 99326 Substance with sulfonami de structure and antibacte rial mechanism of action (substanc e) medicatio n Not available Not available Not available 04/09/2025 65695 8003 SNOMED Not Available [facility] - production 14:31:11 02272 Levaquin medicatio n Not available Not available Not available 04/09/2025 01490 2 RxNorm Not Available [facility] - production 14:31:11 89947 Soma medicatio n Not available Not available Not available 04/09/202557436 2 RxNorm Not Available [facility] - production 14:31:11 45303 diflunisa l medicatio n Not available Not available Not available 04/09/2025 3393 RxNorm Not Available [facility] - [employer] 14:31:11 Medications Name Sig Start Date Stop Date [...] Pulse oximetry Heart rate Body temperature Systolic And Diastolic Provider Name and Address Organization Details Last Updated DateTime 3 20 /min 98 % 98 % 76 /min 96.6 [degF] 115/74 mm[Hg] Not Available [facility] 3 17:29:07 Date Recorded Heart rate Oxygen saturation Oxygen saturation in Arterial blood by Pulse oximetry Body temperature Respiratory rate Systolic And Diastolic Provider Name and Address Organization Details Last Updated DateTime 99 /min 100 % 100 % 98 [degF] 18 /min 130/72 mm[Hg] Not Available [facility] 09:47:34 Social History None recorded. Functional Status None recorded. Mental Status None recorded. Family History Nothing Reported. Medical History No medical history recorded. Gynecological HistoryNo gynecological history recorded. Obstetrics History GPAL:G 0 P 0 0 0 0 Past Encounters Encounter ID Performer Location Encounter Start Date Encounter Closed Date Diagnosis/Indication Diagnosis SNOMED-CT Code Diagnosis ICD10 Code Diagnosis IMO Codes Diagnosis Note [id number] [facility] [address] [place] [phone] 03/14/2023 17:28:59 03/15/2023 11:53:15 [id number] Lauri Moore MD [facility] ED Medical [address] [phone] 04/10/2025 09:47:29 04/11/2025 09:48:05 Right inguinal pain [id number] R10.31 413234 Health Concerns Section Related Observation LastModified by Organization Detai ls LastModified Time None Recorded Concern Status LastModified by Organization Details LastModified Time None Recorded Advance Directives Directive None Recorded Payers Insurance Date Sequence Insurance Name Policy Number Policy Ibrahim Covered Member ID Ibrahim Member ID Guarantor Name 04/09/2025 1 [facility] - DOS ON OR AFTER 2022 - DUAL ELIGIBLE - [employer] OPTIONS AND ONE CARE (MEDICARE REPLACEMENT/AD VANTAGE - HMO) Ellen Pompa [id number] Ellen Pompa Notes Date Note Type Note [...] now a significant flare up of same. ..................... ..................... ..................... ..................... ..................... ..................... ............... [facility] Nursing Assessment: Comments: Reviewed - James ENCISO ..................... ..................... ..................... ..................... ..................... ..................... ............... Sql Report Developer Note From Markus Ramos: SC6 dispatched to location for PT with swollen foot. U/A to location PT 57 y.o. 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 PT presents awake CAOx4 with pink/warm/dry [...] issue but the wait was too long. [facility] contacted with verbal report on PT present illness. [facility] instructs PT to take an additional 500mg acetaminophen tablet when taking the PT prescribed oxy/acet medication. (PT has allergy to naproxen). PT is instructed to rest foot and contact PCP first thing tomorrow morning. PT is advised to see ER attention if symptoms worsen or other symptoms arise. [facility] clears scene *All times are approximate and red flags discussed* ..................... ..................... ..................... ..................... ..................... ..................... ............... Disposition: Hang Lorena Chairez MD [address] [facility], [place], [address], [place] 04/09/2023 23:03:06 04/10/2025 text/html CRC Nurse Triage Notes (Angelique Quiroz): Reason For Request: right hip painDenies: Worst Headache of life New onset of vision loss Sudden onset -unilateral weakness/gait disturbance Fall with head strike and altered LOC New onset of Slurred speech or difficulty finding words Sudden Mental status changes Head pain with fever chills and neck pain Seizure activity Head pain not relieved by medication greater than 8 hours Head pain greater than 8 hours -unrelated to falls or injury Head pain with nausea vomiting Dizziness with positional change Sensitive to light Chief Complaints: Extremity PainPMH: Chronic Back Pain, Depression, Anxiety DisorderPMH Reviewed at 04/09/2025 14:31Allergies Reviewed at 04/09/2025:31Comments: 1700 pt would like a visit on y.o female complains [facility]. Symptoms have [...] for the pain in the hip. Nurse isac CAREY office aware we have no xray capability and verbalized understanding. requesting insted visit for Dorita provided information on the mobile health provider response time and advised the patient and/or caregiver to monitor reported signs and symptoms. I discussed the warning signs of when to seek emergency care. ..................... ..................... ..................... ..................... ..................... ..................... ............... Sql Report Developer Note From Zenon Tapia: [place] the home of a [id number] female patient complaining of groin pain. This pain is a six out of 10 pain that started last night at around 6 PM. Patient had back surgery two weeks ago and believes us to be related to that. Patient has had this pain before, but not as sharp or regular as it was for the last six months. Patient has no noticeable neurological deficits. Patient has a strong fast pulse rate that that is regular. Patient is breathing well and her oxygen saturation is at 100% on room air. Patient skin is warm and dry. She does not have any fever. Patient is eating and drinking as normal and been having bowel movements and urination as normal. At this visit, patient had a full set of vitals taken and was assessed. Patient had a history taken on her back surgery and the pain associated with that. The [facility] was consulted and asked several questions about physical therapy. He also ordered 30 mg of IM Toradol to be given. IM Toradol was given and the patient didn t have any adverse effects. Patient was told to contact your PCP in order to get a better pain management plan going. [facility] Medication Orders: ketorolac 30 mg/mL injection solution: Administered Comment: 30mg IM ..................... ..................... ..................... ..................... ..................... ..................... ............... [facility] Consulted: Rohit Moore ..................... ..................... ..................... ..................... ..................... ..................... ............... Disposition: Fulfilled Lauri Moore MD [address] [facility], [place], [address], [employer] 04/10/2025 18:38:48 OBGyn Episode No OBEpisode recorded.
--- OUTSIDE RECORDS SUMMARY | 2025-04-16 10:48 | XMS_ITS | Clinical Summary ---
Author Organization [facility] Address [address] [id number] Care Team Providers Care Advanced Manager Name Role Phone Kel Gardner Primary Care Provider [phone] Allergies Active Allergy Reactions Criticality Noted Date [...] Screening 1964 HPV and Pap Smear 1964 Pap Smear 1964 Sigmoidoscopy 1964 Mammogram 2004 Pneumococcal Vaccine: 50+ Ye ars (1 of 1 - PCV) 2014 Zoster Vaccines (1 of 2) 2014 DTaP,Tdap,and Td Vaccines (2 - Td or Tdap) 09/21/2019 09/20/2009 Alcohol/Substance Use Screening 07/03/2024 COVID-19 Vaccine (1 - 2024-2 6 season) 2025 Influenza Vaccine (#1) 2025 RSV Vaccine (60+ years old a nd patients) (1 - 1-dose 75+ series) 2039 Hepatitis B Vaccines Aged Out No long er eligible based on patient's age to complete this topic Insurance [facility] ASHLIE COBB [id number] Care Teams Advanced Manager Relationship Specialty Start Date End Date Kel Gardner PCP - General Internal Medicine 10/22/21
--- OUTSIDE RECORDS SUMMARY | 2025-04-16 10:48 | XMS_ITS | Data Portability ---
Author Organization [facility] [address] Address [address] [place] [address] Assessment No assessment recorded. Plan of Treatment [...] ICD10 Code Diagnosis IMO Codes Diagnosis Note [id number] [facility] [address] [place] [address] 12/01/2017 10:08:00 12/01/2017 12:03:44 Health Concerns Section Related Observation LastModified by Organization Detai ls LastModified Time None Recorded Concern Status LastModified by Organization Details LastModified Time None Recorded Advance Directives Directive None Recorded Payers Insurance Date Sequence Insurance Name Policy Number Policy Ibrahim Covered Member ID Ibrahim Member ID Guarantor Name 03/01/2023 1 [place]: [employer] Ellen Pompa [id number] Ellen Pompa 02/28/2023 2 [place] [facility] Ellen Pompa [id number] Ellen Pompa OBGyn Episode No OBEpisode recorded.
--- OUTSIDE RECORDS SUMMARY | 2025-04-16 10:48 | XMS_ITS | Encounter Summary ---
Author Organization [facility] Address [address] [facility] [address] [place] [address] Phone Care Team Providers Care Lumber Driver Name Role Phone Kel Gardner MD Primary Care Provider [phone] Encounter Details Date Type Department Care Team (Late Contact Info) Description 07/12/2024 Procedure Pass [address] [address] Social History Tobacco Use Types Packs/Day Years [...] Description 07/10/2025 2:45 PM EST Office Visit [facility] [address] [facility], [address] [place] [address] Kadeem Leonard MD [address] [facility] [address] [place] [address] [email or web address] documented as of this encounter Visit Diagnoses Not on filedocumented in this encounter Care Teams Lumber Driver Relationship Specialty Start Date End Date Kel Gardner MD [facility] [place] [address] PCP - General Internal Medicine 08/23/23 documented as of this encounter Additional Source Comments The information contained in this document represents components of the legal health record. It is not the complete legal health record.[facility]
--- OUTSIDE RECORDS SUMMARY | 2025-04-16 10:48 | XMS_ITS | Encounter Summary ---
Author Organization [facility] Address [address] [place] [address] Care Team Providers Care Refrigerator Cabinetmaker Name Role Phone Unavailable Primary Care Provider Unavailabl e Reason for Referral * Consultation (Routine) - Closed Specialty Diagnoses / Procedures Referred By Contac t Referred To Contact Neurology Diagnoses Complex regional pain syndrome type 1 of left lower extremity Kel Gardner MD Phone: tel: fax: Neurology at [address] [address] Phone: tel: fax: Referral ID Status Reason Start Date Expiration Date V isits Requested Visits Authorized [id number] Closed Specialty Services Required 06/07/2023 2024 1 1 Encounter Details Date Type Department Care Team (Latest Contact Info) Description 06/07/2023 Transcribed Orders EXTERNAL REFERRAL SOURCE [address] [place] [address] Kel Gardner MD [address] [place] [address] Complex regional pain syndrome type 1 of [...]
--- OUTSIDE RECORDS SUMMARY | 2025-04-16 10:48 | XMS_ITS | Encounter Summary ---
Author Organization [facility] Address [address] [facility] [address] [place] [address] Phone Care Team Providers Care Braille Duplicating Machine Operator Name Role Phone Kel Gardner MD Primary Care Provider [phone] Encounter Details Date Type Department Care Team (Late Contact Info) Description 07/12/2024 Procedure Pass [address] [address] Social History Tobacco Use Types Packs/Day Years [...] [facility] [address] [facility], [address] [place] [address] Kadeem Leonard MD [address] [facility] [address] [place] [address] [email or web address] documented as of this encounter Visit Diagnoses Not on filedocumented in this encounter Care Teams Braille Duplicating Machine Operator Relationship Specialty Start Date End Date Kel Gardner MD [facility] [place] [address] PCP - General Internal Medicine 08/23/23 documented as of this encounter Additional Source Comments The information contained in this document represents components of the legal health record. It is not the complete legal health record.[facility]
--- OUTSIDE RECORDS SUMMARY | 2025-04-16 10:48 | XMS_ITS | Clinical Summary ---
Author Organization [address] [address] Phone Care Team Providers Care Automation Controls Specialist Name Role Phone Unavailable Primary Care Provider [...] cancer screening, Colonoscopy 2009 Diabetes screening 2009 Pneumococcal Vaccine (50+ ye ars) (1 of 1 - PCV) 2014 Shingles vaccine (Shingrix) (1 of 2 - Shingrix (RZV) 2 Dose Standard Series) 2014 Influenza vaccine 01/31/2025 Covid-19 vaccine series ( season) 2025 RSV Immunization (1 - 1-dose 75+ series) 2039 Meningococcal B Vaccine Aged Out No l onger eligible based on patient's age to complete this topic Meningococcal Vaccine Aged Out No sangeeta deloris eligible based on patient's age to complete this topic
--- OUTSIDE RECORDS SUMMARY | 2025-04-16 10:49 | XMS_ITS | Encounter Summary ---
Author Organization [facility] Address [address] [place] [address] Care Team Providers Care Storeperson Name Role Phone Kel Gardner MD Primary Care Provider [phone] Encounter Details Date Type Department Care Team (Late st Contact Info) Description 09/13/2024 Lab Requisition [facility] [address] [facility] [place] [address] Demetria Velasco MD [address] [facility] [address] [place] [address] Frequency of micturition Social History Tobacco Use Types Packs/Day Years [...] 07/23/2025 10:30 AM EST Office Visit [facility] [address] [facility] [address] [place] [address] Zenon Nolan, DPM [address] [facility] [address] [place] [address] 09/23/2025 11:45 AM EDT Office Visit [facility] [address] [facility] [address] [place] [phone] Radha Burns MD [address] [facility] [address] [place] [address] documented as of this encounter Procedures Procedure Name Priority Date/Time Associated Diagnosis Comments BACTERIAL IDENTIFICATION AND SUSCEPTIBILITY, AEROBIC Routine 09/12/2024 12:00 AM EDT Frequency of micturition documented in this encounter Results * (ABNORMAL) Bacterial identification and susceptibility, aerobic (09/12/2024 12:00 AM EDT) Culture, Bacterial ID and Sensitivity Rare Staphylococcus epidermidis(A) MANUEL 09/15/2024 7:54 AM EDT [facility] Comment: The organism value for this result has been updated. These results have been appended to the previously preliminary verified report. Edited result: Previously reported as Gram Positive Cocci on 09/14/2024 at 0956 EDT. Other Urine specimen from urinary conduit / Unknown 09/12/2024 09/13/2024 10:43 AM EDT Narrative Organism Antibiotic Method Susceptibility Staphylococcus epidermidis Benzylpenicillin MANUEL >=0.5 ug/ml: Resistant Staphylococcus epidermidis Oxacillin MANUEL >=4 ug/ml: Resistant Staphylococcus epidermidis Gentamicin MANUEL <=0.5 ug/ml: Susceptible Staphylococcus epidermidis Ciprofloxacin MANUEL <=0.5 ug/ml: Susceptible Staphylococcus epidermidis Levofloxacin MANUEL <=0.12 ug/ml: Susceptible Staphylococcus epidermidis Quinupristin/Dalfopristin M IC <=0.25 ug/ml: Susceptible Staphylococcus epidermidis Linezolid MANUEL 1 ug/ml: Susceptible Staphylococcus epidermidis Vancomycin MANUEL 1 ug/ml: Susceptible Staphylococcus epidermidis Tetracycline MANUEL <=1 ug/ml: Susceptible Staphylococcus epidermidis Nitrofurantoin MANUEL <=16 ug/ml: Susceptible Staphylococcus epidermidis Rifampin MANUEL <=0.5 ug/ml: Susceptible us Demetria Velasco MD LAB MICROBIOLOGY - G ENERAL ORDERABLES Final Result [facility] [address] [place], [place] [address] [phone] documented in this encounter Visit Diagnoses Diagnosis Frequency of micturition Urinary frequency documented in this encounter Care Teams Storeperson Relationship Specialty Start Date End Date Kel Gardner MD [address] [place] [address] PCP - General Internal Medicine 10/04/17 documented as of this encounter
--- OUTSIDE RECORDS SUMMARY | 2025-04-16 10:49 | XMS_ITS | Clinical Summary ---
Author Organization [facility] Address [address] [place] [id number] Phone Care Team Providers Care Nail Technician Teacher Name Role Phone Kel Gardner MD Primary Care Provider [phone] Allergies Active Allergy Reactions Criticality Noted Date Comments Carisoprodol 10/03/2017 Diflunisal Hives 10/03/2017 Levofloxacin 03/13/2025 BLE pain Naproxen Hives 10/03/2017 Omeprazole Hives 10/03/2017 Sulfasalazine Hives 10/03/2017 Medications pregabalin (LYRICA ORAL) Take 75 mg by mouth 2 (two) times a day. Active docusate sodium (COLACE) 100 MG capsule Take 100 mg by mouth daily. Active melatonin 3 mg Tab Take 3 mg by mouth nightly. Active zolpidem (AMBIEN CR) 6.25 MG CR tablet Take 6.25 mg by mouth nightly at bedtime. 025 Active GAVILAX 17 gram/dose powder MIX 17 GRAMS IN WATER OR JUICE AND TAKE BY MOUTH ONCE A DAY NEEDED FOR CONSTIPATION Active cyclobenzaprine (FLEXERIL) 5 MG tablet Take 1 tablet (5 mg total) by mouth every 8 (eight) hours as needed (spasm pain). No driving while taking narcotics/pains meds. 14 tablet Active lidocaine 4 % Place 2 patches onto the skin daily. 10 patch 025 Active senna (SENOKOT) 8.6 mg tabletIndicatio ns:Drug-induced constipation Take 2 tablets by mouth nightly at bedtime as needed for constipation. 20 tablet Active acetaminophen (TYLENOL) 500 MG tabletIndicatio ns:Postoperativ e pain after spinal surgery Take 2 tablets (1,000 mg total) by mouth 3 (three) times a day. 180 tablet 2024 Active oxyCODONE-aceta minophen (PERCOCET) 5-325 mg per tablet Take 1 tablet by mouth every 4 (four) hours as needed for pain (specific location in comments). Patient reports taking 2024 Discontinued(S top Taking at Discharge) acetaminophen (TYLENOL ORAL) Take by mouth. 2024 Discontinued(S top Taking at Discharge) MAGNESIUM ORAL Take by mouth. 2024 Discontinued(S top Taking at Discharge) acetaminophen (TYLENOL) 500 MG tablet Take 2 tablets (1,000 mg total) by mouth 3 (three) times a day for 5 days. 30 tablet 2024 Discontinued(R eorder) oxyCODONE 10 mg Tab Take 1.5 tablets (15 mg total) by mouth every 4 (four) hours as needed for pain (specific location in comments). Partial fill ok 42 tablet 2024 Discontinued senna (SENOKOT) 8.6 mg tablet Take 2 tablets by mouth nightly at bedtime as needed for constipation. 10 tablet 2024 Discontinued(R eorder) oxyCODONE HCl 15 MG immediate release tabletIndicatio ns:Postoperativ e pain after spinal surgery Take 1 tablet (15 mg total) by mouth every 4 (four) hours as needed (acute post-surgical pain). Partial fill ok. 6 tablet 025 2024 Discontinued(R eorder) oxyCODONE 15 MG immediate release tabletIndicatio ns:Postoperativ e pain after spinal surgery Take 1 tablet (15 mg total) by mouth every 4 (four) hours as needed (acute post-surgical pain). Partial fill ok. 42 tablet 2024 Active Problems Patient Care Coordination No te Formatting of this note migh t be different from the original. RAPT score for Case Management team: 1. What is your age group? 50-65 years (2) 2. Gender? Female (1) 3. How far on average can you walk? (a block is 200 meters) Housebound (most of time) (0) 4. Which gait aid do you use? (more often than not) Single-point stick (1) 5. Do you use community supports? (home help, meals on wheels, district nursing) None or one per week (1) 6. Will you live with someone who can care for you after your operation? No (0) Total score (out of 12): 5 Problem Noted Date Diagnosed Date History of lumbar surgery 03/25/2025 Severe major depression 05/17/2024 Urge incontinence 05/17/2024 Complex regional pain syndro me type 1 of right lower extremity 05/17/2024 Insomnia 05/17/2024 Tinnitus 04/10/2024 Mitral regurgitation 03/06/2006 Overview (05/17/2024): Echo 2013: mild to mod MR. Still mild to mod on echo 05/19. 10/22: mild Encounters Date Type Department Care Team Description 04/04/2025 3:30 PM EDT Office Visit [facility] [place] [place] [address] [facility], 3rd Floor, [address] [place] [address] Kadeem Leonard MD Lumbar radiculopathy (Primary Dx); Lumbosacral spinal stenosis 04/04/2025 1:57 PM EDT - 04/04/2025 11:59 PM EDT Hospital Encounter [facility] [place] - Xray, [place] [address] [facility], 3rd [place] [address] Kadeem Leonard MD Discharge Disposition: Home or Self Care 04/03/2025 Orders Only [facility] [address] [facility], 3rd Floor, [address] [place] [address] Trinidad Petersen Lumbosacral spinal stenosis (Primary Dx) 04/03/2025 Refill [facility] [address] [facility], 3rd Floor, [address] [place] [address] Gabriela Bell PA-C Medication Refill 04/01/2025 Telephone [facility] [address] [facility], 3rd Floor, [address] [place] [address] Kadeem Leonard MD 03/28/2025 Refill [facility] [address] [facility], 1st Floor, [address] [place] [address] Gabriela eBll PA-C Medication Refill 03/25/2025 11:06 AM EDT Anesthesia Event [facility] PERIOPERATIVE DEPT [address] [place] [address] Marco Antonio Barcenas MD Griffin, Alexandra Bobo RN 03/25/2025 10:57 AM EDT - 03/25/2025 2:09 PM EDT Surgery [facility] PERI[facility]IVE DEPT [address] [place] [address] Kadeem Leonard MD DECOMPRESSION LAMINECTOMY LUMBAR SPINE ONE LEVEL L2-3 03/25/2025 9:09 AM EDT - 03/26/2025 2:27 PM EDT Hospital Encounter [facility] [address] [place] [address] Kadeem Leonard MD Discharge Disposition: Home or Self Care 03/25/2025 Procedure Pass [facility] PERI[facility]IVE DEPT [address] [place] [phone] 03/24/2025 Telephone [facility] [address] [facility], 3rd Floor, [address] [place] [address] Gabriela Bell PA-C 03/18/2025 8:30 AM EDT Telemedicine - audio only [facility] [address] [facility], 3rd Floor, [address] [place] [address] Gabriela Bell PA-C Lumbar spondylosis (Primary Dx); Lumbar radiculopathy; Spinal stenosis of lumbar region with neurogenic claudication 03/18/2025 Orders Only [facility] [address] [facility], 3rd Floor, [address] [place] [address] Gabriela Bell PA-C 03/13/2025 7:00 PM EDT Pre-Admission Testing [facility] Pre-Procedure Evaluation Department Please [place] [address] Kadeem Leonard MD 03/10/2025 12:19 PM EDT - 03/10/2025 11:59 PM EDT Hospital Encounter [facility] [address] [place] [address] Kadeem Leonard MD Discharge Disposition: Home or Self Care 02/25/2025 Telephone [facility]ine [address] [facility], 3rd Floor, [address] [place] [address] Kadeem Leonard MD 02/19/2025 12:30 PM EDT Telemedicine - audio only [facility]ine [address] [facility], 3rd Floor, [address] [place] [address] Kadeem Leonard MD Lumbar stenosis with neurogenic claudication (Primary Dx); Degeneration of intervertebral disc of lumbar region with lower extremity pain; Lumbosacral spinal stenosis 02/19/2025 Procedure Pass [facility] [address] [place] [address] 01/29/2025 10:30 AM EDT Ancillary Procedure [facility] Imaging Bedside Ultrasound VRT [address] [place] [address] Bart Iniguez MD Other chronic pain 01/29/2025 10:30 AM EDT - 01/29/2025 11:59 PM EDT Hospital Encounter [facility] [address] [place] [address], [address] [address] Bart Iniguez MD Discharge Disposition: Home or Self Care 01/28/2025 Orders Only [facility] [address] [place] [address], [address] [address] Bart Iniguez MD Other chronic pain (Primary Dx) from Last 3 Months Social History Tobacco Use Types Packs/Day Years Used Date Smoking Tobacco: Never Smokeless Tobacco: Never Tobacco Cessation:Counseling Given: Not Answered Alcohol Use Standard Drinks/Week Comments Never 0 [...] Orientation Straight 08/23/2023 8: 46 AM EST Last Filed Vital Signs Vital Sign Reading Time Taken Comments Blood Pressure 151/90 03/26/2025 1:27 PM EDT Pulse 75 03/26/2025 1:27 PM EDT Temperature 36.9 C (98.5 F) 03/26/2025 1:27 PM EDT Respiratory Rate 18 03/26/2025 1:27 PM EDT Oxygen Saturation 98% 03/26/2025 1:27 PM EDT Inhaled Oxygen Concentration - - Weight 68 kg (150 lb) 03/25/2025 10:15 AM EDT Height 158.8 cm (5' 2.52 ) 03/25/2025 10:15 AM E DT Body Mass Index 26.98 03/25/2025 10:15 AM EDT Plan of Treatment Upcoming Encounters Date Type Department Care Team (Late st Contact Info) Description 07/10/2025 2:45 PM EST Office Visit [facility] Orthoped[facility] Spine [address] [facility], [address] [place] [phone] Kadeem Leonard MD [address] [place] [address] [email or web address] Health Maintenance Due Date Last Done Comments DEPRESSION SCREENING 1976 HEPATITIS C SCREENING 1982 HIV ONE-TIME SCREENING (18-6 5 YEARS) 1982 MAMMOGRAM 2004 COLOGUARD 2009 COLONOSCOPY 2009 COLORECTAL CANCER SCREENING 2009 FIT TEST 2009 FOBT 2009 SIGMOIDOSCOPY 2009 VIRTUAL COLONOSCOPY 2009 PNEUMOCOCCAL VACCINES (50+ years) (1 of 1 - PCV) 2014 ZOSTER VACCINES (1 of 2) 2014 PAP SMEAR 11/20/2020 11/20/2017 Adult Td,Tdap Booster 03/02/2021 03/02/2011 , 02/14/2002 INFLUENZA VACCINE (#1) 2025 COVID-19 VACCINE ( - 2024-2 6 season) 2025 LIPID PANEL 09/20/2026 09/20/2021 SCREENING FOR DIABETES 03/26/2028 03/26/2025 RSV VACCINE (1 - 1-dose 75+ series) 2039 SMOKING STATUS SCREENING (On ce After 26 Yrs) Completed 03/25/2025 HEPATITIS A VACCINES Aged Out No long er eligible based on patient's age to complete this topic HIB VACCINES Aged Out No longer eligi ble based on patient's age to complete this topic MENINGOCOCCAL VACCINES (ACWY) Aged Out No longer eligible based on patient's age to complete this topic MENINGOCOCCAL VACCINES (B) Aged Out N o longer eligible based on patient's age to complete this topic Medical Devices Implanted Type Area [employer] Intern Device Identifier Shelf Expiration Date Model / Serial / Lot Spinal Hardware Procedures Procedure Name Priority Date/Time Associated Diagnosis Comments XR LUMBOSACRAL SPINE 2-3 VIEWS Routine 04/04/2025 2:11 PM EDT Lumbosacral spinal stenosis CBC Routine 03/26/2025 6:35 AM EDT BASIC METABOLIC PANEL Routine 03/26/2025 6:35 AM EDT FL FLUORO GUIDANCE - NO CHARGE Routine 03/25/2025 2:40 PM EDT AIRWAY PLACEMENT Routine 03/25/2025 11:2 5 AM EDT NV LAMINEC/FACETECT/F ORAMIN,LUMBAR 1 SEG 03/25/2025 11:11 AM EDT Lumbar stenosis with neurogenic claudication Degeneration of intervertebral disc of lumbar region with lower extremity pain Lumbosacral spinal stenosis Special Needs PLACED FROM DEPOT ON 02/[address] LUMBAR SPINE (NEURO) WITHOUT CONTRAST Routine 03/10/2025 12:32 PM EDT Lumbosacral spinal stenosis FL FLUOROSCOPY Routine 01/29/2025 10:54 AM EDT Other chronic pain from Last 3 Months Results * XR LUMBOSACRAL SPINE 2-3 VIEWS (04/04/2025 2:11 PM EDT) Anatomical Region Laterality Modality L-spine Computed Radiogr aphy 04/04/2025 3:33 PM EDT Impressions 04/04/2025 3:37 PM EDT Postoperative and degenerative changes, unchanged in alignment. No evidence of hardware complication. Narrative 04/04/2025 3:37 PM EDT XR LUMBOSACRAL SPINE 2-3 VIEWS Referring clinician's provided indication for this examination in [facility]: * Low back pain, > 6 wks COMPARISON: XR LUMBOSACRAL SPINE 4 OR MORE VIEWS ; CT LUMBAR SPINE (NEURO) WITHOUT CONTRAST FINDINGS: Unchanged alignment of the posterior instrumented fusion with kell and screw construct and interbody fusion. No new or enlarging tracie-hardware lucency. [place] project over the lower lumbar spine. Degenerative changes of the bilateral sacroiliac joints. No new vertebral body height loss. Similar degenerative changes of the lumbar spine. Sacral evaluation is limited by overlying stool and bowel gas. Degenerative changes of the partially imaged left hip. Procedure Note Jaycob Figueroa MD - 04/04/2025 XR LUMBOSACRAL SPINE 2-3 VIEWS Referring clinician's provided indication for this examination in [facility]: *Low back pain, > 6 wks COMPARISON: XR LUMBOSACRAL SPINE 4 OR MORE VIEWS ; CT LUMBARSPINE (NEURO) WITHOUT CONTRAST FINDINGS: Unchanged alignment of the posterior instrumented fusion with kell andscrew construct and interbody fusion. No new or enlarging tracie-hardwarelucency. [place] project over the lower lumbar spine. Degenerative changesof the bilateral sacroiliac joints. No new vertebral body height loss.Similar degenerative changes of the lumbar spine. Sacral evaluation islimited by overlying stool and bowel gas. Degenerative changes of thepartially imaged left hip. IMPRESSION: Postoperative and degenerative changes, unchanged in alignment. Noevidence of hardware complication. Kadeem Leonard MD IMG XR SPINE Final Result * (ABNORMAL) CBC (03/26/2025 6:35 AM EDT) WBC 6.23 4.00 - 11.00 K/uL [facility] RBC 3.49(L) 4.00 - 5.20 M/uL [facility] HGB 11.1(L) 12.0 - 16.0 g/dL [facility] HCT 33.2(L) 36.0 - 46.0 % [facility] PLT 180 150 - 450 K/uL [facility] MCV 95.1 80.0 - 100.0 fL [facility] MCH 31.8(H) 27.0 - 31.0 pg [facility] MCHC 33.4 32.0 - 36.0 g/dL [facility] RDW 12.2 11.5 - 14.5 % [facility] MPV 10.8 8.4 - 12.0 fL [facility] NRBC 0.00 0.00 /100 WBCs [facility] ABSOLUTE NRBC 0.00 0.00 K/uL [facility] Blood 03/26/2025 6:35 AM EDT 03/26/2025 7:05 AM EDT Kadeem Leonard MD LAB BLOOD ORDERABLES Final R esult [address] [address] * (ABNORMAL) Basic metabolic panel (03/26/2025 6:35 AM EDT) SODIUM 138 135 - 145 mmol/L [facility] POTASSIUM 4.1 3.4 - 5.0 mmol/L [facility] CHLORIDE 105 98 - 108 mmol/L [facility] CO2 25 23 - 32 mmol/L [facility] BUN 6(L) 8 - 25 mg/dL [facility] CREATININE 0.50 0.50 - 1.00 mg/dL [facility] GLUCOSE 81 70 - 110 mg/dL [facility] CALCIUM 8.5 8.5 - 10.5 mg/dL [facility] EGFR 107 >59 mL/min/1.7 3m2 [facility] Comment:Estimated glomerular filtration rate calculated using the CKD-EPI refit equation. ANION GAP 8 3 - 17 mmol/L [facility] Blood 03/26/2025 6:35 AM EDT 03/26/2025 7:05 AM EDT Kadeem Leonard MD LAB BLOOD ORDERABLES Final R esult Performing Organization Address City/[facility]/ZIP Co de Phone Number [facility] [address] [place] [address] * [place] Fluoroscopy Guidance - No Charge (03/25/2025 2:40 PM EDT) 03/25/2025 2:45 PM EDT Narrative [facility] - 03/25/2025 2:45 PM EDT Dose (mGy): 0.2350 Dose Area Product (DAP): 0.0483 Dose Area Product (DAP) Units: Gy.cm2 Fluoro time (min): 00:00.6 Number of Spot Films: 2 Radimetrics Dose Report: CTDIvol: 0 mGy. DLP: 0 mGy-cm. Procedure Note Driver/Refuse Collector, Dictation - 03/25/2025 Dose (mGy): 0.2350 Dose Area Product (DAP): 0.0483 Dose Area Product (DAP) Units: Gy.cm2 Fluoro time (min): 00:00.6 Number of Spot Films: 2 Radimetrics Dose Report: CTDIvol: 0 mGy. DLP: 0 mGy-cm. Kadeem Leonard MD IMG [place] EXAMS Final Result Performing Organization Address [facility] Co de Phone Number [facility] [address] [place] [address] * ANES ETT DOUBLE LUMEN - AIRWAY LDA (03/25/2025 11:25 AM EDT) Trinity Jimenez MD - 03/25/2025 11:25 AM EDT Trinity Sanchez MD 03/25/2025 11:43 AM Airway Placement Procedure Note: Patient was not difficult to intubate. Procedure performed by: anesthesiologist and fellow/resident/ASSEMBLER DC FIELD YOKE Anesthesiologist: Marco Antonio Barcenas MD Fellow/Resident/ASSEMBLER DC FIELD YOKE: Trinity Sanchez MD Airway procedure initiated at:03/25/2025 11:25 AM and ended at. Personal Protective Equipment: Mask: surgical mask Eye Protection: eye shield Gloves: gloves Gown: no gown Mask Ventilation: Quality: easy Airway Placement: Technique: direct laryngoscopy Rapid sequence induction: no Details: Blade type: Mac Blade size: 3 Direct view: grade 2 Airway manipulation: laryngeal manipulation Number of attempts: 1 ETT type: cuffed ETT size: 7.0 ETT depth at teeth: 22 ETT cuff inflation volume: 8 Tube position confirmed by: EtCO2 Bite Block: soft Outcomes: Evidence of dental injury? no Complications observed? no Notes: Eyes closed and taped prior to airway manipulation to reduce risk of abrasion. Oropharynx was clear. The laryngoscope was introduced followed by atraumatic intubation. ETT passed easily and without resistance. Cuff was inflated and patient was ventilated. Dentition remained as noted preoperatively. Tongue grossly free of compression. No airway complications appreciated. us Marco Antonio Barcenas MD [place] ANESTHESIA Final Resul t * CT LUMBAR SPINE (NEURO) WITHOUT CONTRAST (03/10/2025 12:32 PM EDT) Anatomical Region Laterality Modality L-spine Computed Tomogra phy 03/11/2025 10:5 2 AM EDT Impressions 03/11/2025 11:03 AM EDT 1. L3-4 posterior lumbar interbody fusion and laminectomy. Anterior placement of interbody grafts at L4-5. Osseous fusion of the bilateral L3-4 facets and left L4-5 facet. No osseous fusion across the lumbar intervertebral disc spaces. No evidence of hardware complication. Alignment appears similar to December 05, 2024 lumbar spine radiographs. Narrative 03/11/2025 11:[address] LUMBAR SPINE (NEURO) WITHOUT CONTRAST Referring clinician's provided indication for this examination in Epic: * Spinal stenosis, lumbosacral TECHNIQUE: Multidetector-row CT of the lumbar spine was performed without intravenous contrast using tailored dose modulation techniques. Images were reconstructed in the axial, coronal, and sagittal planes. COMPARISON: MRI lumbar spine August 2024, lumbar spine radiographs December 05, 2024 FINDINGS: LUMBAR SPINE: Alignment and Vertebrae: L3-4 posterior lumbar fusion and laminectomy. Interbody grafts within the L4-5 disc space. No evidence of hardware complication. No lumbar compression fracture. The grade 1 spondylolisthesis at L1-L2 3 appears similar to August 14, 2024 lumbar spine MRI. There is osseous fusion of the bilateral L3 and L4 and left L4-5 facets. No osseous fusion across the lumbar intervertebral disc spaces. Discs and Endplates: There is moderate intervertebral disc height loss at L2-3 and L3-4 are similar the prior studies. There is a disc bulge L3-4. No osseous spinal canal narrowing. There is moderate right and severe left neural foraminal narrowing at L2-3 due to spondylolisthesis, intervertebral disc height loss, and facet osteophytes. Soft Tissue: Normal. No prevertebral soft tissue thickening. Other Findings: Mild bilateral sacroiliac joint osteoarthritis. Sigmoid diverticulosis. Procedure Note Delano Moffett, DO - 03/11/2025 CT LUMBAR SPINE (NEURO) WITHOUT CONTRAST Referring clinician's provided indication for this examination in Epic: *Spinal stenosis, lumbosacral TECHNIQUE: Multidetector-row CT of the lumbar spine was performed withoutintravenous contrast using tailored dose modulation techniques. Imageswere reconstructed in the axial, coronal, and sagittal planes. COMPARISON: MRI lumbar spine August 2024, lumbar spine radiographs 2024 FINDINGS: LUMBAR SPINE: Alignment and Vertebrae: L3-4 posterior lumbar fusion and laminectomy.Interbody grafts within the L4-5 disc space. No evidence of hardwarecomplication. No lumbar compression fracture. The grade 1spondylolisthesis at L1-L2 3 appears similar to August 14, 2024 lumbarspine MRI. There is osseous fusion of the bilateral L3 and L4 and leftL4-5 facets. No osseous fusion across the lumbar intervertebral discspaces. Discs and Endplates: There is moderate intervertebral disc height loss atL2-3 and L3-4 are similar the prior studies. There is a disc bulge L3-4.No osseous spinal canal narrowing. There is moderate right and severe leftneural foraminal narrowing at L2-3 due to spondylolisthesis,intervertebral disc height loss, and facet osteophytes. Soft Tissue: Normal. No prevertebral soft tissue thickening. Other Findings: Mild bilateral sacroiliac joint osteoarthritis. Sigmoiddiverticulosis. IMPRESSION: 1. L3-4 posterior lumbar interbody fusion and laminectomy. Anteriorplacement of interbody grafts at L4-5. Osseous fusion of the bilateralL3-4 facets and left L4-5 facet. No osseous fusion across the lumbarintervertebral disc spaces. No evidence of hardware complication.Alignment appears similar to December 05, 2024 lumbar spine radiographs. us Kadeem Leonard MD IMG CT XSPECIALTY ORDERABLES Final Result * FL Fluoroscopy (01/29/2025 10:54 AM EDT) Narrative [facility] - 01/29/2025 10:54 AM EDT Fluoroscopy was provided during this procedure. Bart Iniguez MD IMG [place] MISC Final Result [facility] INTERFACES from Last 3 Months Insurance [facility] ONE CARE MEDICARE REPLACEMENT ASHLIE COBB [id number] MEDICARE PART A & B ONE CARE MEDICARE REPLACEMENT MEDICARE PART A & B MEDICARE PART A & B MEDICARE PART A & B ONE CARE MEDICARE REPLACEMENT ASHLIE COBB [facility] MEDICARE PART A & B MEDICARE PART A & B CARE MEDICARE REPLACEMENT MEDICARE PART A & B [facility] ONE CARE MEDICARE REPLACEMENT MEDICARE PART A & B [facility] ONE CARE MEDICARE REPLACEMENT Advance Directives For more information, please contact: [phone] (9AM - 5PM [facility] [place], Monday-Monday) Documents on File Type Date Recorded Patient Hydrologic Modeler Expl anation Healthcare Proxy 03/25/2025 8:44 PM Care Teams Nail Technician Teacher Relationship Specialty Start Date End Date Kel Gardner MD [address] [place] [id number] PCP - General Internal Medicine 08/23/23 Additional Source Comments The information contained in this document represents components of the legal health record. It is not the complete legal health record.[facility]
== END 2025-04-16 10:32 | disposition home or self-care (01) ==
LOC: HO.HSM 09:28
PROVIDERS: PCP Internal Medicine; Visit Provider Registered Nurse
DX: G31.84 Mild cognitive impairment of uncertain or unknown etiology (principal); I67.89 Other cerebrovascular disease; G90.521 Complex regional pain syndrome I of right lower limb; M54.50 Low back pain, unspecified; G89.29 Other chronic pain
CPT/HCPCS: 99214

== ENCOUNTER → 2025-04-16 09:28 | Outpatient (BNVA) | payer OTHER, SELFPAY | PROVIDERS: PCP Internal Medicine; Visit Provider Registered Nurse | DX: G31.84 Mild cognitive impairment of uncertain or unknown etiology (principal); G90.521 Complex regional pain syndrome I of right lower limb; I67.89 Other cerebrovascular disease; M54.50 Low back pain, unspecified; G89.29 Other chronic pain | CPT/HCPCS: 99212 ==